=== PATIENT | female | born 1990 | race Caucasian/White ===

== ENCOUNTER 2018-02-27 00:08 | Emergency (ER) | payer MEDICAID, OTHER ==
[2018-02-27 00:35] VITALS: BP 123/82; BMI 23.0
--- NOTE | 2018-02-27 01:00 | DR.GENAD ---
HPI - PCP Primary Care Physician: JULIOCESAR - HPI Comment HPI Comment: HISTORY BELOW. - Complaint/Symptoms Chief Complaint Doctors Comments: PATIENT ATE AT A FAMILY GATHERING FOR [facility]LENE. PATIEN IS HAVING ABDOMINAL PAIN, NAUSEA AND VOMITING. NOT SURE IS HER CHRONIC PANCREATITIS MAY BE CAUSING THIS. NO FENER. HAD BM TODAY. Chief Complaint:: PT STATES" I THINK I'M HAVING PANCREATITIS I HAVE STONES IN MY PANCREAS I'M NAUSEAED AND MY STOMACH IS SWOLLEN" - Nurses notes reviewed Nurses Notes Review: Yes - Source History Provided: Patient - Mode of Arrival Mode of Arrival: Ambulatory - Timing Onset of Chief Complaint: 02/26/18 Came on: Suddenly - Duration Duration: Constant Duration: Hours - Severity Severity: Moderate PMH - PMH Past Medical History: Yes Past Medical History: Anxiety, Diabetes, Headaches, Hypothyroidism Past Medical History Comment: IGG4 RD IGG PANCREATITIS Past Surgical History: Yes Surgical History: Appendectomy, Cholecystectomy, Ortho Surgery Past Surgical History Comment: LT WRIST LT GREAT TOE AND JOINT - Family History History of Family Medical Conditions: Yes Family Medical History: Diabetes Mellitus, Cancer, [place], Coronary Artery Disease, Hypertension - Social History Does any household member use tobacco: No Alcohol Use: None Do you use any recreational Drugs:: No Lives With: Family Lives Where: Home - infectious screening In the last 2 months have you had wt loss of >10#?: NO Have you had fever, night sweats or hemotysis?: No Have you traveled outside the country in the last 6 months?: No Isolation: Standard ROS - Review of Systems Constitutional: Weakness, Fatigue. negative: Chills, Fever Eyes: No Symptoms Reported ENTM: negative: Ear Pain, Nose Discharge, Nose Congestion, Throat Pain Respiratoy: No Symptoms Reported. negative: Productive Cough, Non-Productive Cough, Short of Breath, Wheezing Cardiovascular: No Symptoms Reported Gastrointestinal/Abdominal: Abdominal Pain, Nausea, Vomiting Genitourinary: No Symptoms Reported. negative: Dysuria, Frequency, Hematuria Neurological: Weakness, Dizziness. negative: Headache Musculoskeletal: Muscle Pain Integumentary: Change in Color Hematologic/Lymphatic: No Symptoms Reported Endocrine: negative: Flushing, Increased Thirst, Increased Urine All Other Systems: Reviewed and Negative PE - Vital Signs Vitals: Temperature 98.1 F Pulse Rate 124 Respiratory Rate 18 Blood Pressure [Right Arm] 106/85 Blood Pressure 123/82 O2 Sat by Pulse Oximetry 99 - General Limitations: No Limitations General Appearance: Alert - Head Head Exam: Normal Inspection - Eyes Eye exam: Normal Appearance. negative: Scleral Icterus, Conjunctival Injection - ENT ENT Exam: Normal External Ear Exam External Ear Exam: Normal External Inspection TM/Canal Exam: Bilateral Normal Nose Exam: Normal Nose Exam Mouth Exam: Normal Inspection Throat Exam: Normal Inspection - Neck Neck Exam: Trachea Midline - Chest Chest Inspection: Symmetric Chest Wall Rise - Respiratory Respiratory Exam: Normal Lung Sounds Bilat Respiratory Exam: Bilateral Clear to Auscultation - Cardiovascular Cardiovascular Exam: Regular Rate, Normal Rhythm, Bradycardia - Abdominal Exam Abdominal Exam: Normal Bowel Sounds, Soft, Tenderness Abdominal Tenderness: Diffuse, Mild - Extremities Extremities Exam: Normal Inspection - Back Back Exam: Normal Inspection - Neurologic Neurological Exam: Alert, Oriented X3 - Psychiatric Psychiatric Exam: Normal Affect, Normal Mood - Skin Skin Exam: Normal Color MDM - Additional Information Additional Information Obtained From: Family - Differential Diagnosis Differential Diagnosis: ABDOMINAL PAIN, GASTRITIS, PANCREATITIS. Course - Treatment Treatment: SEE ORDERS. IM MED FOR PAIN AND NAUSEA. - Reevaluation 1st: Improved - Education/Counseling Education/Counseling: Patient, Family, Education Educated On: Treatment, Diagnosis, Needs for Follow Up ROR - Labs Reviewed Laboratory Results Reviewed?: Yes Result Diagrams: 02/27/18 00:57 02/27/18 00:57 Laboratory: WBC 4.9 X10^3/uL (3.6-10.0) 02/27/18 00:57 RBC 3.67 X10^6/uL (3.5-5.4) 02/27/18 00:57 Hgb 9.8 g/dL (12.0-16.0) L 02/27/18 00:57 Hct 29.3 % (36.0-47.0) L 02/27/18 00:57 MCV 79.7 fL (80.0-100.0) L 02/27/18 00:57 MCH 26.6 pg (27.0-34.0) L 02/27/18 00:57 MCHC 33.4 g/dL (33.0-35.0) 02/27/18 00:57 RDW 14.7 % (11.6-16.5) 02/27/18 00:57 Plt Count 302 X10^3/uL (150.0-450.0) 02/27/18 00:57 MPV 8.1 fL (7.4-11.0) 02/27/18 00:57 Neut % (Auto) 59.1 % (42.0-75.0) 02/27/18 00:57 Lymph % (Auto) 28.8 % (21.0-51.0) 02/27/18 00:57 [place] % (Auto) 9.5 % (0.0-13.0) 02/27/18 00:57 Eos % (Auto) 1.6 % (0.9-2.9) 02/27/18 00:57 Baso % (Auto) 1.0 % (0.2-1.0) 02/27/18 00:57 Neut # (Auto) 2.9 x10^3/uL (2.2-4.8) 02/27/18 00:57 Lymph # (Auto) 1.4 X10^3/uL (1.3-2.9) 02/27/18 00:57 [place] # (Auto) 0.5 x10^3/uL (0.3-0.8) 02/27/18 00:57 Eos # (Auto) 0.1 x10^3/uL (0.0-0.2) 02/27/18 00:57 Baso # (Auto) 0.0 X10^3/uL (0.0-0.1) 02/27/18 00:57 Absolute Nucleated RBC 0.0 /100WBC 02/27/18 00:57 Sodium 136 mmol/L (136-145) 02/27/18 00:57 Corrected Sodium 142 mmol/L (136-145) 02/27/18 00:57 Potassium 4.4 mmol/L (3.5-5.1) 02/27/18 00:57 Chloride 101 mmol/L (98-107) 02/27/18 00:57 Carbon Dioxide 20.0 mmol/L (21-32) L 02/27/18 00:57 BUN 32 mg/dL (7-18) H 02/27/18 00:57 Creatinine 1.25 mg/dL (0.55-1.02) H 02/27/18 00:57 Est GFR (MDRD) Af Amer > 60 (>60) 02/27/18 00:57 Est GFR (MDRD) Non-Af 55 (>60) L 02/27/18 00:57 Glucose 342 mg/dL (65-99) H 02/27/18 00:57 Calcium 8.3 mg/dL (8.5-10.1) L 02/27/18 00:57 Corrected Calcium 8.9 mg/dL (8.5-10.1) 02/27/18 00:57 Total Bilirubin 0.10 mg/dL (0.2-1.0) L 02/27/18 00:57 AST 17 Units/L (15-37) 02/27/18 00:57 ALT 20 Units/L (12-78) 02/27/18 00:57 Alkaline Phosphatase 122 Units/L (46-116) H 02/27/18 00:57 Total Protein 8.0 g/dL (6.4-8.2) 02/27/18 00:57 Albumin 3.2 g/dL (3.4-5.0) L 02/27/18 00:57 Globulin 4.8 g/dL (2.5-4.5) H 02/27/18 00:57 Albumin/Globulin Ratio 0.7 Ratio (1.1-2.1) L 02/27/18 00:57 Amylase 36 Units/L (25-115) 02/27/18 00:57 Lipase 200 Units/L (73-393) 02/27/18 00:57 Specimen Type Clean catch urine 02/27/18 01:10 Urine Color Straw (YELLOW) 02/27/18 01:10 Urine Appearance Clear (CLEAR) 02/27/18 01:10 Urine pH 5.0 (5.0 - 8.0) 02/27/18 01:10 Ur Specific [place] 1.010 (1.000-1.030) 02/27/18 01:10 Urine Protein 2+ (NEGATIVE) 02/27/18 01:10 Urine Glucose (UA) 4+ (NEGATIVE) 02/27/18 01:10 Urine Ketones Negative (NEGATIVE) 02/27/18 01:10 Urine Occult Blood 2+ (NEGATIVE) 02/27/18 01:10 Urine Nitrite Negative (NEGATIVE) 02/27/18 01:10 Urine Bilirubin Negative (NEGATIVE) 02/27/18 01:10 Urine Urobilinogen Normal (NORMAL) 02/27/18 01:10 Ur Leukocyte Esterase 1+ (NEGATIVE) 02/27/18 01:10 Urine RBC 3-5 /HPF (NONE SEEN) 02/27/18 01:10 Urine WBC 0-2 /HPF (NONE SEEN) 02/27/18 01:10 Ur Squamous Epith Cells Rare /HPF (NEGATIVE) 02/27/18 01:10 Urine Bacteria Negative /HPF (NEGATIVE) 02/27/18 01:10 Urine Yeast Few /HPF (NEGATIVE) 02/27/18 01:10 Ur Culture Indicated? No/not indicated 02/27/18 01:10 Acetone, Semi-Quant Negative (NEGATIVE) 02/27/18 00:57 - Diagnosis Discharge Problem: Abdominal pain, Nausea & vomiting - Discharge Plan Disposition: 01 HOME, SELF-CARE Condition: Stable - Follow ups/Referrals Follow ups/Referrals: NFD,None [Primary Care Provider] - 02/27/18 - Instructions Instructions: Nausea and Vomiting, Adult, [id number], Abdominal Pain, Adult, [id number] Additional Instructions: RETURN TO ED IF WORSE.
[2018-02-27] MEDS ORDERED: ZOFRAN INJ 4 MG VIAL IM ONE (01:14)
[2018-02-27] MEDS ORDERED: TORADOL 60 MG VIAL IM ONE (01:14)
[2018-02-27 01:16] LABS: EOSINOPHILS # (AUTO) 0.1 x10^3/uL (0.0-0.2); EOSINOPHILS % (AUTO) 1.6 % (0.9-2.9); HEMATOCRIT 29.3 % (36.0-47.0); HEMOGLOBIN 9.8 g/dL (12.0-16.0); LYMPHOCYTES # (AUTO) 1.4 X10^3/uL (1.3-2.9); LYMPHOCYTES % (AUTO) 28.8 % (21.0-51.0); MEAN CORPUSCULAR HEMOGLOBIN 26.6 pg (27.0-34.0); MEAN CORPUSCULAR HGB CONC 33.4 g/dL (33.0-35.0); MEAN CORPUSCULAR VOLUME 79.7 fL (80.0-100.0); MEAN PLATELET VOLUME 8.1 fL (7.4-11.0); MONOCYTES # (AUTO) 0.5 x10^3/uL (0.3-0.8); MONOCYTES % (AUTO) 9.5 % (0.0-13.0); NEUTROPHILS # (AUTO) 2.9 x10^3/uL (2.2-4.8); NEUTROPHILS % (AUTO) 59.1 % (42.0-75.0); PLATELET COUNT 302 X10^3/uL (150.0-450.0); RED BLOOD COUNT 3.67 X10^6/uL (3.5-5.4); RED CELL DISTRIBUTION WIDTH 14.7 % (11.6-16.5); WHITE BLOOD COUNT 4.9 X10^3/uL (3.6-10.0)
[2018-02-27] MEDS ORDERED: TORADOL 60 MG VIAL ONE (01:16)
[2018-02-27] MEDS ORDERED: ZOFRAN INJ 4 MG VIAL ONE (01:16)
[2018-02-27 01:36] LABS: ALANINE AMINOTRANSFERASE 20 Units/L (12-78); ALBUMIN 3.2 g/dL (3.4-5.0); ALKALINE PHOSPHATASE 122 Units/L (46-116); AMYLASE 36 Units/L (25-115); ASPARTATE AMINO TRANSFERASE 17 Units/L (15-37); BLOOD UREA NITROGEN 32 mg/dL (7-18); CALCIUM 8.3 mg/dL (8.5-10.1); CHLORIDE 101 mmol/L (98-107); COR CA(FOR HYPOALB) 8.9 mg/dL (8.5-10.1); COR NA(FOR HYPERGLY) 142 mmol/L (136-145); CREATININE 1.25 mg/dL (0.55-1.02); LIPASE 200 Units/L (73-393); SODIUM 136 mmol/L (136-145); eGFR BLACK RACES > 60 (>60); eGFR NON BLACK RACES 55 (>60)
[2018-02-27 01:42] LABS: BILIRUBIN,URINE NEGATIVE (NEGATIVE); BLOOD/HEMOGLOBIN,URINE 2+ (NEGATIVE); GLUCOSE, URINE 4+ (NEGATIVE); KETONES,URINE NEGATIVE (NEGATIVE); LEUKOCYTE ESTERASE ,URINE 1+ (NEGATIVE); NITRITES,URINE NEGATIVE (NEGATIVE); PROTEIN,URINE 2+ (NEGATIVE); UROBILINOGEN,URINE NORMAL (NORMAL)
[2018-02-27 01:52] LABS: APPEARANCE,URINE CLEAR (CLEAR); COLOR,URINE STRAW (YELLOW)
[2018-02-27 01:53] LABS: BACTERIA,URINE NEGATIVE /HPF (NEGATIVE); SQUAMOUS EPITHELIAL CELL,UR RARE /HPF (NEGATIVE); YEAST,URINE FEW /HPF (NEGATIVE)
== END 2018-02-27 02:14 | disposition home or self-care (01) ==
LOC: ER 00:08
DX: R11.2 Nausea with vomiting, unspecified (principal); R10.84 Generalized abdominal pain
CPT/HCPCS: 36415; 80053; 81001; 82009; 82150; 83690; 85025; 96372; 99282; 99284; J1885; J2405

== ENCOUNTER 2018-03-10 15:29 | Emergency (ER) | payer OTHER, MEDICAID ==
[2018-03-10 15:39] VITALS: BP 99/68; BMI 22.3
[2018-03-10] MEDS ORDERED: MORPHINE SULFATE INJ 2 MG INJ IVP ONE (16:18)
[2018-03-10] MEDS ORDERED: ZOFRAN INJ 4 MG VIAL IVP ONE (16:19)
[2018-03-10] MEDS ORDERED: MORPHINE SULFATE INJ 2 MG INJ ONE ×2 (16:22→16:26)
[2018-03-10] MEDS ORDERED: ZOFRAN INJ 4 MG VIAL ONE ×2 (16:22→16:26)
[2018-03-10] MEDS ORDERED: MORPHINE SULFATE INJ 2 MG INJ IM ONE (16:34)
[2018-03-10] MEDS ORDERED: ZOFRAN INJ 4 MG VIAL IM ONE (16:34)
--- NOTE | 2018-03-10 16:46 | RAD ---
Examination: X-rays of the left ankle. Clinical history: Left foot/ankle pain after walking up steps. Patient had foot surgery 1 month ago. Technique: Three views of the left ankle were obtained. Comparison: None available. Findings: There is a deformity of the base of the proximal phalanx of the 1st toe, which is incompletely visual ized on x-rays of the ankle, but is well visualized on x-rays of the left foot and appears to represe nt a comminuted intra-articular fracture of the base of the proximal phalanx of the 1st toe. Bony spurring is seen at the posterior aspect of the calcaneus, consistent with enthesopathy. No additional bony or soft tissue abnormality is noted. Impression: 1. There is a deformity of the base of the proximal phalanx of the 1st toe, which is incompletely vis ualized on x-rays of the ankle, but is well visualized on x-rays of the left foot and appears to repr esent a comminuted intra-articular fracture of the base of the proximal phalanx of the 1st toe. Reported By:
--- NOTE | 2018-03-10 16:49 | RAD ---
Indication: Foot pain Exam: Left foot series. Technique: AP, lateral, and oblique views. Findings: There is ill-defined cortical fracture along the base of the proximal phalanx of the 1st to e laterally with mild subluxation of the 1st MTP joint. There are questionable erosive changes seen a long the articular surface of the proximal phalanx. There are prominent cortical erosive changes nkechi g the head of the 1st metatarsal bone . There is moderate soft tissue swelling around the area. The t arsal bones are intact . The bones are osteopenic. Impression: Mildly displaced cortical fracture along the base of the proximal phalanx of the 1st toe with mild kohli bluxation of the joint space. Moderate cortical erosive changes along the head of the 1st metatarsal bone and questionable extensio n into the base of the proximal phalanx which could indicate some type of erosive arthropathy in the joint or possible septic joint and developing osteomyelitis. The patient gives a history of recent kohli rgery on the foot . Recommend clinical follow-up. Moderate soft tissue swelling around the 1st MTP joint. Osteopenia. Normal foot Reported By:
[2018-03-10] MEDS ORDERED: TORADOL 30 MG VIAL IVP ONE (17:56)
--- NOTE | 2018-03-10 18:03 | DR.EXTPAIN ---
HPI - Time seen Time seen: 17:57 (seen on arrival to room) - PCP Primary Care Physician: Dr. Lonnie Veras - Complaint/Symptoms Chief Complaint:: Patient c/o left foot pain after walking up steps. Patient stated "It just popped." Patient had foot surgery 1 month ago. Jesus wrap and brace noted to left foot. - Source History Provided: Patient - Mode of arrival Mode of Arrival: Wheelchair - Timing Onset of Chief Complaint: 03/10/18 PMH - PMH Past Medical History: Yes Past Medical History: CHF, Diabetes, GERD Past Medical History Comment: IGG4 pancreatitis, hypo and hyperthyroidism, chronic gastroparesis, deaf in left ear. 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 Past Surgical History: Yes Surgical History: Appendectomy, Cholecystectomy, Ortho Surgery Past Surgical History Comment: surgery on foot, wrist and chest - Family History History of Family Medical Conditions: Yes Family Medical History: Diabetes Mellitus, Cancer, Heart Failure, Hypertension - Social History Does patient currently use any type of tobacco product: No Have you used tobacco products in the last 12 months: No Type of Tobacco Use: None Does any household member use tobacco: No Alcohol Use: None Do you use any recreational Drugs:: No Lives With: Family Lives Where: Home - infectious screening In the last 2 months have you had wt loss of >10#?: NO Have you had fever, night sweats or hemotysis?: No Have you traveled outside the country in the last 6 months?: No Isolation: Standard ROS - Review of Systems Constitutional: No Symptoms Reported Eyes: No Symptoms Reported ENTM: No Symptoms Reported Respiratoy: No Symptoms Reported Cardiovascular: No Symptoms Reported Gastrointestinal/Abdominal: Nausea Neurological: No Symptoms Reported Musculoskeletal: No Symptoms Reported, See HPI, Joint Pain, Joint Swelling, Left , Ankle Integumentary: No Symptoms Reported, Wound (wound left great toe from MRSA procedures(under tx elsewhere)) Hematologic/Lymphatic: No Symptoms Reported Endocrine: No Symptoms Reported Psychiatric: No Symptoms Reported All Other Systems: Reviewed and Negative PE - Vital Signs Vitals: Temperature 98.2 F Pulse Rate 122 Respiratory Rate 19 Blood Pressure [Right Arm] 106/85 Blood Pressure 99/68 O2 Sat by Pulse Oximetry 100 - General Limitations: No Limitations General Appearance: Alert, In No Apparent Distress - Head Head Exam: Normal Inspection - Eyes Eye exam: Normal Appearance - ENT ENT Exam: Normal Exam - Neck Neck Exam: Normal Inspection, Full ROM, Trachea Midline - Chest Chest Inspection: Normal Inspection - Respiratory Respiratory Exam: Normal Lung Sounds Bilat Respiratory Exam: Bilateral Clear to Auscultation - Cardiovascular Cardiovascular Exam: Regular Rate, Normal Rhythm - Abdominal Exam Abdominal Exam: Normal Inspection, Normal Bowel Sounds, Soft. negative: Tenderness - Lower Extremities Ankle Exam: Tenderness, Swelling, Other (left ankle swollen, tender to palp). negative: Abrasion, Laceration, Ecchymosis, Deformity, Crepitus, Dislocation, Erythema, Tenderness over talofibular lig, Anterior Draw Sign Neurovascular/Tendon Exam: Normal Capillary Refill Gait Exam: Not Tested/Not Observed - Neurological Neurological Exam: Alert, Oriented X3 - Skin Skin Exam: Warm, Dry. negative: Erythema ROR - XRAY XRAY Interpreted by: Radiologist XRAY Findings: fx left great toe(chronic) no ankle fx seen, no other acute - Diagnosis Discharge Problem: Left ankle sprain - Discharge Plan Disposition: 01 HOME, SELF-CARE Condition: Stable - Follow ups/Referrals Follow ups/Referrals: NFD,None [Primary Care Provider] - 3 days - Instructions Instructions: Ankle Sprain, [id number], Elastic Bandage and RICE
== END 2018-03-10 18:22 | disposition home or self-care (01) ==
LOC: ER 15:41
DX: S93.402A Sprain of unspecified ligament of left ankle, initial encounter (principal); Y33.XXXA Other specified events, undetermined intent, initial encounter; Y92.9 Unspecified place or not applicable
CPT/HCPCS: 73610; 73630; 96372; 99282; J1885; J2270; J2405

== ENCOUNTER 2018-04-13 11:42 | Emergency (ER) | payer OTHER, MEDICAID ==
[2018-04-13 11:49] VITALS: BMI 22.3
[2018-04-13] MEDS ORDERED: NS 1000 ML 1,000 ML ONE ×2 (11:51→16:02)
[2018-04-13] MEDS ORDERED: NS 1000 ML 1,000 ML IV ONE (12:20)
--- NOTE | 2018-04-13 12:39 | DR.GENAD ---
HPI - PCP Primary Care Physician: last seen a doctor in [place] - Complaint/Symptoms Chief Complaint Doctors Comments: Mom reports that patient was not acting herself; she started shaking all over for approximately one minute then went limp for 10-15 seconds, she has not been making sence with her speech; she keeps saying that she is trying to fix it. She denies patient having fever or urinary incontinence; she has been lethargic for 15 seconds. She went to see her physician in [place] and was discharged from practice stating the she was too complicated for him to see. Chief Complaint:: mother stated she hasnt been acting right for 3 days and her blood pressure was low at home. - Source History Provided: Parent - Mode of Arrival Mode of Arrival: Wheelchair - Timing Onset of Chief Complaint: 04/11/18 PMH - PMH Past Medical History: Yes Past Medical History: CHF, Diabetes, GERD Past Surgical History: Yes Surgical History: Appendectomy, Cholecystectomy, Ortho Surgery - Family History History of Family Medical Conditions: Yes Family Medical History: Diabetes Mellitus, Cancer, Heart Failure, Hypertension - Social History Does patient currently use any type of tobacco product: No Have you used tobacco products in the last 12 months: No Type of Tobacco Use: None Does any household member use tobacco: No Alcohol Use: None Do you use any recreational Drugs:: No Lives With: Family Lives Where: Home - infectious screening In the last 2 months have you had wt loss of >10#?: NO Have you had fever, night sweats or hemotysis?: No Have you traveled outside the country in the last 6 months?: No Isolation: Standard ROS - Review of Systems Eyes: No Symptoms Reported ENTM: No Symptoms Reported Respiratoy: No Symptoms Reported Cardiovascular: No Symptoms Reported Gastrointestinal/Abdominal: No Symptoms Reported Genitourinary: No Symptoms Reported Neurological: No Symptoms Reported Musculoskeletal: No Symptoms Reported Integumentary: No Symptoms Reported Hematologic/Lymphatic: No Symptoms Reported Endocrine: No Symptoms Reported Psychiatric: No Symptoms Reported All Other Systems: Reviewed and Negative PE - Vital Signs Vitals: Temperature 98.3 F Pulse Rate 127 Respiratory Rate 16 Blood Pressure [Right Arm] 106/85 Blood Pressure 72/32 - General General Appearance: Alert, In No Apparent Distress - Head Head Exam: Normal Inspection, Atraumatic - Eyes Eye exam: Normal Appearance, PERRL, EOMI - ENT ENT Exam: Normal Exam External Ear Exam: Normal External Inspection TM/Canal Exam: Bilateral Normal Nose Exam: Normal Nose Exam Mouth Exam: Normal Inspection Throat Exam: Normal Inspection - Neck Neck Exam: Normal Inspection - Chest Chest Inspection: Normal Inspection - Respiratory Respiratory Exam: Normal Lung Sounds Bilat Respiratory Exam: Bilateral Clear to Auscultation - Cardiovascular Cardiovascular Exam: Regular Rate, Normal Rhythm - Abdominal Exam Abdominal Exam: Normal Inspection, Normal Bowel Sounds Abdominal Tenderness: negative: RUQ, RLQ, LUQ, LLQ, Epigastrium, Suprapubic, Diffuse, Mild, Moderate, Severe, Other - Extremities Extremities Exam: Normal Inspection, Full ROM - Back Back Exam: Normal Inspection, Full ROM - Neurologic Neurological Exam: Alert, Oriented X3, CN II-XII Intact - Psychiatric Psychiatric Exam: Normal Affect, Normal Mood - Skin Skin Exam: Warm, Dry, Intact Course - Consultation Called: 15:35 (Dr Oakley accepted for evaluation of new on set seizure ER to ER) ROR - Labs Reviewed Result Diagrams: 04/13/18 12:00 04/13/18 12:00 Laboratory: WBC 4.9 X10^3/uL (3.6-10.0) 04/13/18 12:00 RBC 4.16 X10^6/uL (3.5-5.4) 04/13/18 12:00 Hgb 11.4 g/dL (12.0-16.0) L 04/13/18 12:00 Hct 32.5 % (36.0-47.0) L 04/13/18 12:00 MCV 78.1 fL (80.0-100.0) L 04/13/18 12:00 MCH 27.3 pg (27.0-34.0) 04/13/18 12:00 MCHC 35.0 g/dL (33.0-35.0) 04/13/18 12:00 RDW 15.4 % (11.6-16.5) 04/13/18 12:00 Plt Count 284 X10^3/uL (150.0-450.0) 04/13/18 12:00 MPV 8.5 fL (7.4-11.0) 04/13/18 12:00 Neut % (Auto) 57.8 % (42.0-75.0) 04/13/18 12:00 Lymph % (Auto) 27.5 % (21.0-51.0) 04/13/18 12:00 [place] % (Auto) 11.9 % (0.0-13.0) 04/13/18 12:00 Eos % (Auto) 1.5 % (0.9-2.9) 04/13/18 12:00 Baso % (Auto) 1.3 % (0.2-1.0) H 04/13/18 12:00 Neut # (Auto) 2.8 x10^3/uL (2.2-4.8) 04/13/18 12:00 Lymph # (Auto) 1.3 X10^3/uL (1.3-2.9) 04/13/18 12:00 [place] # (Auto) 0.6 x10^3/uL (0.3-0.8) 04/13/18 12:00 Eos # (Auto) 0.1 x10^3/uL (0.0-0.2) 04/13/18 12:00 Baso # (Auto) 0.1 X10^3/uL (0.0-0.1) 04/13/18 12:00 Absolute Nucleated RBC 0.1 /100WBC 04/13/18 12:00 Sodium 133 mmol/L (136-145) L 04/13/18 12:00 Corrected Sodium TNP 04/13/18 12:00 Potassium 4.5 mmol/L (3.5-5.1) 04/13/18 12:00 Chloride 97 mmol/L (98-107) L 04/13/18 12:00 Carbon Dioxide 23.9 mmol/L (21-32) 04/13/18 12:00 BUN 22 mg/dL (7-18) H 04/13/18 12:00 Creatinine 1.28 mg/dL (0.55-1.02) H 04/13/18 12:00 Est GFR (MDRD) Af Amer > 60 (>60) 04/13/18 12:00 Est GFR (MDRD) Non-Af 54 (>60) L 04/13/18 12:00 Glucose 97 mg/dL (65-99) 04/13/18 12:00 Calcium 8.9 mg/dL (8.5-10.1) 04/13/18 12:00 Corrected Calcium 9.6 mg/dL (8.5-10.1) 04/13/18 12:00 Total Bilirubin 0.20 mg/dL (0.2-1.0) 04/13/18 12:00 AST 29 Units/L (15-37) 04/13/18 12:00 ALT 27 Units/L (12-78) 04/13/18 12:00 Alkaline Phosphatase 166 Units/L (46-116) H 04/13/18 12:00 C-Reactive Protein 5.70 mg/L (0-3.0) H 04/13/18 12:00 Total Protein 8.1 g/dL (6.4-8.2) 04/13/18 12:00 Albumin 3.1 g/dL (3.4-5.0) L 04/13/18 12:00 Globulin 5.0 g/dL (2.5-4.5) H 04/13/18 12:00 Albumin/Globulin Ratio 0.6 Ratio (1.1-2.1) L 04/13/18 12:00 Specimen Type Catherized urine 04/13/18 14:01 Urine Color Yellow (YELLOW) 04/13/18 14:01 Urine Appearance Slightly hazy (CLEAR) 04/13/18 14:01 Urine pH 7.0 (5.0 - 8.0) 04/13/18 14:01 Ur Specific [place] 1.005 (1.000-1.030) 04/13/18 14:01 Urine Protein 2+ (NEGATIVE) 04/13/18 14:01 Urine Glucose (UA) 2+ (NEGATIVE) 04/13/18 14:01 Urine Ketones Negative (NEGATIVE) 04/13/18 14:01 Urine Occult Blood 2+ (NEGATIVE) 04/13/18 14:01 Urine Nitrite Negative (NEGATIVE) 04/13/18 14:01 Urine Bilirubin Negative (NEGATIVE) 04/13/18 14:01 Urine Urobilinogen Normal (NORMAL) 04/13/18 14:01 Ur Leukocyte Esterase Negative (NEGATIVE) 04/13/18 14:01 Urine RBC 0-2 /HPF (NONE SEEN) 04/13/18 14:01 Urine WBC None seen /HPF (NONE SEEN) 04/13/18 14:01 Ur Squamous Epith Cells Rare /HPF (NEGATIVE) 04/13/18 14:01 Amorphous Sediment 1+ /HPF (NEGATIVE) 04/13/18 14:01 Urine Bacteria Negative /HPF (NEGATIVE) 04/13/18 14:01 Ur Culture Indicated? No/not indicated 04/13/18 14:01 - XRAY XRAY Interpreted by: Radiologist (CT Brain: Land-white differentiation is maintained. No visible acute infarct, intracranial hemorrhage, focal or generalized edema, extra-axial collection, hydrocephalus or mass is identified. There is mild mucosal thickening of the bilateral ethmoid and maxillary sinuses with small fluid level noted within right maxillary sinus. The remaining visualized paranasal sinuses and mastoid air cells are clear. The extracranial structured are gossly unremarkable. Impression: Mild paranasal sinus mucosal disease. Chest: No acute cardiopulmonary disease.) - Diagnosis Discharge Problem: New onset seizure, IGG-4 Syndrome, Gastroparesis, Diabetes - Discharge Plan Condition: Stable - Follow ups/Referrals Follow ups/Referrals: NFD,None [Primary Care Provider] - 3 days - Instructions
[2018-04-13 13:03] LABS: BASOPHILS # (AUTO) 0.1 X10^3/uL (0.0-0.1); BASOPHILS % (AUTO) 1.3 % (0.2-1.0); EOSINOPHILS # (AUTO) 0.1 x10^3/uL (0.0-0.2); EOSINOPHILS % (AUTO) 1.5 % (0.9-2.9); HEMATOCRIT 32.5 % (36.0-47.0); HEMOGLOBIN 11.4 g/dL (12.0-16.0); LYMPHOCYTES # (AUTO) 1.3 X10^3/uL (1.3-2.9); LYMPHOCYTES % (AUTO) 27.5 % (21.0-51.0); MEAN CORPUSCULAR HEMOGLOBIN 27.3 pg (27.0-34.0); MEAN CORPUSCULAR VOLUME 78.1 fL (80.0-100.0); MEAN PLATELET VOLUME 8.5 fL (7.4-11.0); MONOCYTES # (AUTO) 0.6 x10^3/uL (0.3-0.8); MONOCYTES % (AUTO) 11.9 % (0.0-13.0); NEUTROPHILS # (AUTO) 2.8 x10^3/uL (2.2-4.8); NEUTROPHILS % (AUTO) 57.8 % (42.0-75.0); PLATELET COUNT 284 X10^3/uL (150.0-450.0); RED BLOOD COUNT 4.16 X10^6/uL (3.5-5.4); RED CELL DISTRIBUTION WIDTH 15.4 % (11.6-16.5); WHITE BLOOD COUNT 4.9 X10^3/uL (3.6-10.0)
--- NOTE | 2018-04-13 13:06 | CT ---
CT head without contrast Indication: New onset seizure, low blood pressure Technique: Helical CT images of the brain were obtained without IV contrast. Reformatted images in th e coronal and sagittal planes were also generated for review. Comparison: None Findings: Land-white differentiation is maintained. No visible acute infarct, intracranial hemorrhage , focal or generalized edema, extra-axial collection, hydrocephalus or mass is identified. There is m ild mucosal thickening of the bilateral ethmoid and maxillary sinuses with small fluid level noted wi thin right maxillary sinus. The remaining visualized paranasal sinuses and mastoid air cells are aleida r. The extracranial structures are grossly unremarkable. Impression: No acute intracranial abnormality. Mild paranasal sinus mucosal disease, as above. Correlate clinically for acute sinusitis. Reported By:
[2018-04-13 13:14] LABS: ALANINE AMINOTRANSFERASE 27 Units/L (12-78); ALBUMIN 3.1 g/dL (3.4-5.0); ALKALINE PHOSPHATASE 166 Units/L (46-116); ASPARTATE AMINO TRANSFERASE 29 Units/L (15-37); BLOOD UREA NITROGEN 22 mg/dL (7-18); CALCIUM 8.9 mg/dL (8.5-10.1); CARBON DIOXIDE 23.9 mmol/L (21-32); CHLORIDE 97 mmol/L (98-107); COR CA(FOR HYPOALB) 9.6 mg/dL (8.5-10.1); CREATININE 1.28 mg/dL (0.55-1.02); SODIUM 133 mmol/L (136-145); TOTAL PROTEIN 8.1 g/dL (6.4-8.2); eGFR BLACK RACES > 60 (>60); eGFR NON BLACK RACES 54 (>60)
--- NOTE | 2018-04-13 13:32 | RAD ---
STUDY: CHEST, ONE VIEW History: New onset seizure. Low blood pressure. Comparison: August 12, 2015 Findings: The trachea is midline. The lungs are clear of consolidation, significant infiltrate, effusion, or pn eumothorax. The cardiac silhouette, mediastinum and osseous structures are unremarkable. IMPRESSION: 1. No evidence of acute cardiopulmonary abnormality. Reported By:
[2018-04-13 14:09] LABS: BILIRUBIN,URINE NEGATIVE (NEGATIVE); BLOOD/HEMOGLOBIN,URINE 2+ (NEGATIVE); GLUCOSE, URINE 2+ (NEGATIVE); KETONES,URINE NEGATIVE (NEGATIVE); LEUKOCYTE ESTERASE ,URINE NEGATIVE (NEGATIVE); NITRITES,URINE NEGATIVE (NEGATIVE); PROTEIN,URINE 2+ (NEGATIVE); UROBILINOGEN,URINE NORMAL (NORMAL)
[2018-04-13 14:13] LABS: APPEARANCE,URINE SLIGHTLY HAZY (CLEAR); COLOR,URINE YELLOW (YELLOW)
[2018-04-13 14:21] LABS: AMORPHOUS SEDIMENT,UR 1+ /HPF (NEGATIVE); BACTERIA,URINE NEGATIVE /HPF (NEGATIVE); RBC,URINE 0-2 /HPF (NONE SEEN); SQUAMOUS EPITHELIAL CELL,UR RARE /HPF (NEGATIVE)
[2018-04-13 17:00] VITALS: BP 96/60
== END 2018-04-13 16:24 | disposition short-term general hospital (02) ==
LOC: ER 12:15
DX: E11.43 Type 2 diabetes mellitus with diabetic autonomic (poly)neuropathy (principal); K31.84 Gastroparesis; R56.9 Unspecified convulsions; D80.3 Selective deficiency of immunoglobulin G [IgG] subclasses; J32.9 Chronic sinusitis, unspecified; R79.82 Elevated C-reactive protein (CRP); R31.9 Hematuria, unspecified
CPT/HCPCS: 36415; 51702; 70450; 71045; 80053; 81001; 85025; 86140; 93005; 93010; 96365; 99284; 99285; A4222

== ENCOUNTER 2018-05-30 13:54 | Observation (INO) ==
--- NOTE | 2018-05-30 14:33 | DR.GENAD ---
HPI - PCP Primary Care Physician: Dr. Jaskaran Steward in [place] - HPI Comment HPI Comment: PATIENT IS HERE VIA EMS FOR SEIZURE, HYPOTENSION AND GENERALIZE WEAKNESS. HE STARTED FEELING WEAK THIS AM. SEIZURE AND HYPOTENSION BEFORE COMING. NO FEVER. - Complaint/Symptoms Chief Complaint Doctors Comments: WEAKNES, HYPOTENSION, AND HYPOTENSION. Chief Complaint:: Pt reported weakness this morning. This afternoon pt was riding in vehicle and had sudden onset of seizure like activity. Pt was also noted to be hypotensive with BP 79/43 upon EMS arrival. - Nurses notes reviewed Nurses Notes Review: Yes - Source History Provided: Patient, EMS - Mode of Arrival Mode of Arrival: EMS - Timing Onset of Chief Complaint: 05/30/18 Came on: Suddenly - Duration Duration: Constant Duration: Days - Severity Severity: Moderate PMH - PMH Past Medical History: Yes Past Medical History: CHF, Diabetes, Migraines, GERD Past Medical History Comment: metabolic disorder, autoimmune disorder, IGG4 Past Surgical History: Yes Surgical History: Appendectomy, Cholecystectomy, Ortho Surgery - Family History History of Family Medical Conditions: No Family Medical History: Diabetes Mellitus, Cancer, Heart Failure, Hypertension - Social History Does patient currently use any type of tobacco product: No Have you used tobacco products in the last 12 months: No Type of Tobacco Use: None Does any household member use tobacco: No Alcohol Use: None Do you use any recreational Drugs:: No Lives With: Family Lives Where: Home - infectious screening In the last 2 months have you had wt loss of >10#?: NO Have you had fever, night sweats or hemotysis?: No Have you traveled outside the country in the last 6 months?: No Isolation: Standard ROS - Review of Systems Constitutional: Weakness, Fatigue. negative: See HPI, Fever Eyes: No Symptoms Reported ENTM: No Symptoms Reported Respiratoy: Short of Breath Cardiovascular: Syncope, Skin Mottling (N), Other (HYPOTENSIO) Gastrointestinal/Abdominal: Diarrhea Neurological: Headache, Seizure, Weakness, Dizziness Musculoskeletal: Muscle Pain PE - General Limitations: Altered Mental Status General Appearance: Alert, In No Apparent Distress - Head Head Exam: Atraumatic, Normocephalic - Eyes Eye exam: PERRL, EOMI - ENT ENT Exam: Normal Exam External Ear Exam: Normal External Inspection TM/Canal Exam: Bilateral Normal Nose Exam: Normal Nose Exam Mouth Exam: Normal Inspection Throat Exam: Normal Inspection - Neck Neck Exam: Normal Inspection - Chest Chest Inspection: Normal Inspection - Respiratory Respiratory Exam: Normal Lung Sounds Bilat Respiratory Exam: Bilateral Clear to Auscultation - Cardiovascular Cardiovascular Exam: Tachycardia - Abdominal Exam Abdominal Exam: Normal Bowel Sounds, Soft, Tenderness - Extremities Extremities Exam: Normal Inspection - Back Back Exam: Normal Inspection - Neurologic Neurological Exam: Alert, Oriented X3. negative: Motor Sensory Deficit - Skin Skin Exam: Pallor (HYPOTENSIVE.), Other - Vital Signs Vitals: Temperature 98.1 F Pulse Rate 114 Respiratory Rate 24 Blood Pressure [Right Arm] 131/87 Blood Pressure 75/39 O2 Sat by Pulse Oximetry 97 MDM - Differential Diagnosis Differential Diagnosis: SEIZURE, GENERALIZE WEAKNESS, HYPOTENSION, ELECTROLYTE IMBALANCE. Course - Treatment Treatment: SEE ORDERS. - Education/Counseling Education/Counseling: Patient, Education Educated On: Diagnosis, Needs for Follow Up ROR - Labs Reviewed Laboratory Results Reviewed?: Yes Result Diagrams: 05/31/18 05:08 05/31/18 05:08 - Other Results Comments: PATIENT ADMITTED TO DR. DURHAM SERVICE. - XRAY XRAY Interpreted by: Radiologist XRAY Findings: REPORT DISCUSS WITH PATIENT. - EKG Rate: 132 Rhythm: ST (EKG NOTED.) - Labs Reviewed Laboratory: WBC 4.2 X10^3/uL (3.6-10.0) 05/30/18 14:45 RBC 3.73 X10^6/uL (3.5-5.4) 05/30/18 14:45 Hgb 10.4 g/dL (12.0-16.0) L 05/30/18 14:45 Hct 31.3 % (36.0-47.0) L 05/30/18 14:45 MCV 83.9 fL (80.0-100.0) 05/30/18 14:45 MCH 27.9 pg (27.0-34.0) 05/30/18 14:45 MCHC 33.3 g/dL (33.0-35.0) 05/30/18 14:45 RDW 13.7 % (11.6-16.5) 05/30/18 14:45 Plt Count 420 X10^3/uL (150.0-450.0) 05/30/18 14:45 MPV 8.1 fL (7.4-11.0) 05/30/18 14:45 Neut % (Auto) 54.6 % (42.0-75.0) 05/30/18 14:45 Lymph % (Auto) 31.6 % (21.0-51.0) 05/30/18 14:45 [place] % (Auto) 11.7 % (0.0-13.0) 05/30/18 14:45 Eos % (Auto) 1.5 % (0.9-2.9) 05/30/18 14:45 Baso % (Auto) 0.6 % (0.2-1.0) 05/30/18 14:45 Neut # (Auto) 2.3 x10^3/uL (2.2-4.8) 05/30/18 14:45 Lymph # (Auto) 1.3 X10^3/uL (1.3-2.9) 05/30/18 14:45 [place] # (Auto) 0.5 x10^3/uL (0.3-0.8) 05/30/18 14:45 Eos # (Auto) 0.1 x10^3/uL (0.0-0.2) 05/30/18 14:45 Baso # (Auto) 0.0 X10^3/uL (0.0-0.1) 05/30/18 14:45 Absolute Nucleated RBC 0.0 /100WBC 05/30/18 14:45 Sodium 147 mmol/L (136-145) H 05/30/18 14:45 Corrected Sodium TNP 05/30/18 14:45 Potassium 3.4 mmol/L (3.5-5.1) L 05/30/18 14:45 Chloride 112 mmol/L (98-107) H 05/30/18 14:45 Carbon Dioxide 20.1 mmol/L (21-32) L 05/30/18 14:45 BUN 26 mg/dL (7-18) H 05/30/18 14:45 Creatinine 1.28 mg/dL (0.55-1.02) H 05/30/18 14:45 Est GFR (MDRD) Af Amer > 60 (>60) 05/30/18 14:45 Est GFR (MDRD) Non-Af 54 (>60) L 05/30/18 14:45 Glucose 106 mg/dL (65-99) H 05/30/18 14:45 Lactic Acid 5.0 mmol/L (0.4-2.0) H 05/30/18 14:45 Calcium 8.8 mg/dL (8.5-10.1) 05/30/18 17:35 Corrected Calcium 1.9 mg/dL (8.5-10.1) L 05/30/18 14:45 Phosphorus 4.2 mg/dL (2.6-4.7) 05/30/18 14:45 Magnesium 2.3 mg/dL (1.7-2.9) 05/30/18 14:45 Total Bilirubin 0.20 mg/dL (0.2-1.0) 05/30/18 14:45 AST 33 Units/L (15-37) 05/30/18 14:45 ALT 34 Units/L (12-78) 05/30/18 14:45 Alkaline Phosphatase 171 Units/L (46-116) H 05/30/18 14:45 Creatine Kinase 44 Units/L (26-192) 05/30/18 14:45 CK-MB (CK-2) < 1.0 ng/mL (0-4.0) 05/30/18 14:45 CK/CKMB % Calc 2.3 % (<4) 05/30/18 14:45 Troponin I < 0.02 ng/mL (0-1.5) 05/30/18 14:45 Total Protein 7.6 g/dL (6.4-8.2) 05/30/18 14:45 Albumin 3.1 g/dL (3.4-5.0) L 05/30/18 14:45 Globulin 4.5 g/dL (2.5-4.5) 05/30/18 14:45 Albumin/Globulin Ratio 0.7 Ratio (1.1-2.1) L 05/30/18 14:45 Specimen Type Random urine 05/30/18 16:26 Urine Color Pale yellow (YELLOW) 05/30/18 16:26 Urine Appearance Clear (CLEAR) 05/30/18 16:26 Urine pH 6.5 (5.0 - 8.0) 05/30/18 16:26 Ur Specific [place] 1.010 (1.000-1.030) 05/30/18 16:26 Urine Protein Negative (NEGATIVE) 05/30/18 16:26 Urine Glucose (UA) 1+ (NEGATIVE) 05/30/18 16:26 Urine Ketones Negative (NEGATIVE) 05/30/18 16:26 Urine Occult Blood 2+ (NEGATIVE) 05/30/18 16:26 Urine Nitrite Negative (NEGATIVE) 05/30/18 16:26 Urine Bilirubin Negative (NEGATIVE) 05/30/18 16:26 Urine Urobilinogen Normal (NORMAL) 05/30/18 16:26 Ur Leukocyte Esterase Negative (NEGATIVE) 05/30/18 16:26 Urine RBC 3-5 /HPF (NONE SEEN) 05/30/18 16:26 Urine WBC 0-2 /HPF (NONE SEEN) 05/30/18 16:26 Ur Squamous Epith Cells Few /HPF (NEGATIVE) 05/30/18 16:26 Urine Bacteria 1+ /HPF (NEGATIVE) 05/30/18 16:26 Urine Yeast Rare /HPF (NEGATIVE) 05/30/18 16:26 Ur Culture Indicated? No/not indicated 05/30/18 16:26 Urine Opiates Screen Negative (NEG=<300) 05/30/18 16:26 Urine Methadone Screen Negative (NEG=<300) 05/30/18 16:26 Ur Barbiturates Screen Negative (NEG=<200) 05/30/18 16:26 Ur Phencyclidine Scrn Negative (NEG=<25) 05/30/18 16:26 Ur Amphetamines Screen Negative (NEG=<1000) 05/30/18 16:26 U Benzodiazepines Scrn Negative (NEG=<200) 05/30/18 16:26 Urine Cocaine Screen Negative (NEG=<300) 05/30/18 16:26 U Marijuana (THC) Screen Negative (NEG=<50) 05/30/18 16:26 Acetone, Semi-Quant Negative (NEGATIVE) 05/30/18 14:45 - Diagnosis Discharge Problem: Diarrhea, Syncopal episodes Hypotension Qualifiers: Hypotension type: other hypotension type Qualified Code(s): I95.89 - Other hypotension - Discharge Plan Disposition: 09 ADMITTED INPATIENT Condition: Stable
[2018-05-30] MEDS: NS 1000 ML 1,000 ML IV ONE ×2 (14:38→15:00)
[2018-05-30 15:03] LABS: BASOPHILS % (AUTO) 0.6 % (0.2-1.0); EOSINOPHILS # (AUTO) 0.1 x10^3/uL (0.0-0.2); EOSINOPHILS % (AUTO) 1.5 % (0.9-2.9); HEMATOCRIT 31.3 % (36.0-47.0); HEMOGLOBIN 10.4 g/dL (12.0-16.0); LYMPHOCYTES # (AUTO) 1.3 X10^3/uL (1.3-2.9); LYMPHOCYTES % (AUTO) 31.6 % (21.0-51.0); MEAN CORPUSCULAR HEMOGLOBIN 27.9 pg (27.0-34.0); MEAN CORPUSCULAR HGB CONC 33.3 g/dL (33.0-35.0); MEAN CORPUSCULAR VOLUME 83.9 fL (80.0-100.0); MEAN PLATELET VOLUME 8.1 fL (7.4-11.0); MONOCYTES # (AUTO) 0.5 x10^3/uL (0.3-0.8); MONOCYTES % (AUTO) 11.7 % (0.0-13.0); NEUTROPHILS # (AUTO) 2.3 x10^3/uL (2.2-4.8); NEUTROPHILS % (AUTO) 54.6 % (42.0-75.0); PLATELET COUNT 420 X10^3/uL (150.0-450.0); RED BLOOD COUNT 3.73 X10^6/uL (3.5-5.4); RED CELL DISTRIBUTION WIDTH 13.7 % (11.6-16.5); WHITE BLOOD COUNT 4.2 X10^3/uL (3.6-10.0)
[2018-05-30] MEDS ORDERED: NS 1000 ML 1,000 ML ONE ×2 (15:12→17:07)
[2018-05-30 15:20] LABS: ALANINE AMINOTRANSFERASE 34 Units/L (12-78); ALBUMIN 3.1 g/dL (3.4-5.0); ALKALINE PHOSPHATASE 171 Units/L (46-116); ASPARTATE AMINO TRANSFERASE 33 Units/L (15-37); BLOOD UREA NITROGEN 26 mg/dL (7-18); CARBON DIOXIDE 20.1 mmol/L (21-32); CHLORIDE 112 mmol/L (98-107); CREATININE 1.28 mg/dL (0.55-1.02); SODIUM 147 mmol/L (136-145); TOTAL PROTEIN 7.6 g/dL (6.4-8.2); eGFR NON BLACK RACES 54 (>60)
[2018-05-30 15:30] LABS: CKMB % 2.3 % (<4); CREATINE KINASE 44 Units/L (26-192); CREATINE KINASE MB < 1.0 ng/mL (0-4.0); TROPONIN I < 0.02 ng/mL (0-1.5)
[2018-05-30 15:35] LABS: CALCIUM 1.2 mg/dL (8.5-10.1); COR CA(FOR HYPOALB) 1.9 mg/dL (8.5-10.1)
[2018-05-30] MEDS ORDERED: NS 1000 ML 1,000 ML IV ONE (15:55)
[2018-05-30] MEDS ORDERED: CALCIUM GLUCONATE 10% IV ONE ×2 (16:21→17:04)
[2018-05-30 16:39] LABS: BILIRUBIN,URINE NEGATIVE (NEGATIVE); BLOOD/HEMOGLOBIN,URINE 2+ (NEGATIVE); GLUCOSE, URINE 1+ (NEGATIVE); KETONES,URINE NEGATIVE (NEGATIVE); LEUKOCYTE ESTERASE ,URINE NEGATIVE (NEGATIVE); NITRITES,URINE NEGATIVE (NEGATIVE); PH,URINE 6.5 (5.0 - 8.0); PROTEIN,URINE NEGATIVE (NEGATIVE); UROBILINOGEN,URINE NORMAL (NORMAL)
[2018-05-30 16:56] LABS: APPEARANCE,URINE CLEAR (CLEAR); BACTERIA,URINE 1+ /HPF (NEGATIVE); COLOR,URINE PALE YELLOW (YELLOW); SQUAMOUS EPITHELIAL CELL,UR FEW /HPF (NEGATIVE); YEAST,URINE RARE /HPF (NEGATIVE)
[2018-05-30] MEDS ORDERED: NS 100 ML IV 100 ML IV ONE (17:04)
[2018-05-30] MEDS ORDERED: NS IV ONE ×2 (17:22)
[2018-05-30] MEDS ORDERED: CALCIUM GLUCONATE IV ONE ×2 (17:22)
[2018-05-30] MEDS: NS + KCL 20 MEQ/L 1,000 ML IV SCH (17:25)
--- NOTE | 2018-05-30 18:17 | RAD ---
Chest AP portable Indication: Weakness. Possible seizure Comparison: 05/26/2018 Findings: There is no pneumothorax or effusion. There is no consolidation. Heart size is normal. Impression: No acute chest process or change from the prior. Reported By:
[2018-05-30 20:39] VITALS: BMI 22.3
[2018-05-30] MEDS: ULTRAM PO PRN (21:04)
[2018-05-31 00:14] LABS: CKMB % 2.5 % (<4); CREATINE KINASE 40 Units/L (26-192); CREATINE KINASE MB < 1.0 ng/mL (0-4.0); TROPONIN I < 0.02 ng/mL (0-1.5)
[2018-05-31] MEDS: NS + KCL 20 MEQ/L 1,000 ML IV SCH ×2 (02:10→17:28)
[2018-05-31] MEDS: ULTRAM PO PRN (02:10)
[2018-05-31 06:02] LABS: BASOPHILS # (AUTO) 0.1 X10^3/uL (0.0-0.1); BASOPHILS % (AUTO) 1.5 % (0.2-1.0); EOSINOPHILS # (AUTO) 0.2 x10^3/uL (0.0-0.2); EOSINOPHILS % (AUTO) 3.4 % (0.9-2.9); HEMATOCRIT 30.8 % (36.0-47.0); HEMOGLOBIN 10.2 g/dL (12.0-16.0); LYMPHOCYTES # (AUTO) 1.6 X10^3/uL (1.3-2.9); LYMPHOCYTES % (AUTO) 31.6 % (21.0-51.0); MEAN CORPUSCULAR HEMOGLOBIN 27.7 pg (27.0-34.0); MEAN CORPUSCULAR HGB CONC 33.1 g/dL (33.0-35.0); MEAN CORPUSCULAR VOLUME 83.5 fL (80.0-100.0); MEAN PLATELET VOLUME 9.4 fL (7.4-11.0); MONOCYTES # (AUTO) 0.5 x10^3/uL (0.3-0.8); MONOCYTES % (AUTO) 9.7 % (0.0-13.0); NEUTROPHILS # (AUTO) 2.8 x10^3/uL (2.2-4.8); NEUTROPHILS % (AUTO) 53.8 % (42.0-75.0); PLATELET COUNT 305 X10^3/uL (150.0-450.0); RED BLOOD COUNT 3.69 X10^6/uL (3.5-5.4); RED CELL DISTRIBUTION WIDTH 13.7 % (11.6-16.5); WHITE BLOOD COUNT 5.1 X10^3/uL (3.6-10.0)
[2018-05-31 06:18] LABS: ALANINE AMINOTRANSFERASE 32 Units/L (12-78); ALBUMIN 3.1 g/dL (3.4-5.0); ALKALINE PHOSPHATASE 174 Units/L (46-116); ASPARTATE AMINO TRANSFERASE 38 Units/L (15-37); BLOOD UREA NITROGEN 12 mg/dL (7-18); CARBON DIOXIDE 17.6 mmol/L (21-32); CHLORIDE 99 mmol/L (98-107); COR CA(FOR HYPOALB) 9.7 mg/dL (8.5-10.1); COR NA(FOR HYPERGLY) 140 mmol/L (136-145); CREATININE 0.87 mg/dL (0.55-1.02); SODIUM 133 mmol/L (136-145); TOTAL PROTEIN 7.6 g/dL (6.4-8.2); eGFR NON BLACK RACES > 60 (>60)
[2018-05-31 06:23] LABS: PLATELET MORPHOLOGY COMMENT NORMAL (NORMAL)
[2018-05-31] MEDS ORDERED: HumuLIN R SUBCUT ONE (07:08)
[2018-05-31] MEDS ORDERED: HumuLIN R ONE (07:13)
[2018-05-31 08:04] LABS: CKMB % 1.6 % (<4); CREATINE KINASE 62 Units/L (26-192); CREATINE KINASE MB < 1.0 ng/mL (0-4.0); TROPONIN I < 0.02 ng/mL (0-1.5)
--- NOTE | 2018-05-31 11:19 | DR.H&P ---
H&P - History & Physical for Day of: H&P Date: 05/30/18 - Chief Complaint Chief Complaint: SEIZURE - History of Present Illness History of Present Illness: PT IS 27 EF ER ADMISSION AFTER PRESENTING WITH CO reported weakness this morning. This afternoon pt was riding in vehicle and had sudden onset of seizure like activity. Pt was also noted to be hypotensive with BP 79/43 upon EMS arrival. Pt has PMH of DM, Osteomyelitis currently on doxycycline since 11/2017 to left foot, chronic pancreatitis, auto immune pancreatitis, and seizure like episode similiar to today due to hypotension, pt currently on hydrocortisone for bp control. pt states "its because I had too much powerade and my magnesium gets off track". Pt denies any aura prior to seizure, denies cp or sob. Pt admitted to ICU for treatment and evaluation of syncope episode, serial ekg's electrolyte replacement. Pt is under the care of Dr Means and Uli in [place]. - Past Medical History Past Medical History: Anxiety, CHF, Diabetes, Migraines, GERD, Hypothyroidism, Liver Disease Additional Medical History: Hypotension, Auto Immune Pancreatitis, Bipolar Disorder, Deaf (L) Ear, Polycystic ovarian disease, Gall bladder disease, Pancreatitis, Crohn's disease, Constipation, Hormone disorder - Past Surgical History Surgical History: Appendectomy, Cholecystectomy, Ortho Surgery Additional Surgical History: Port-a-cath placement - Family History Family Medical History: Diabetes Mellitus, Cancer, Heart Failure, Hypertension - Social History Does patient currently use any type of tobacco product: No Have you used tobacco products in the last 12 months: No Type of Tobacco Use: None Does any household member use tobacco: No Alcohol Use: None Drug Use: None - Medications Home Medications: acetaminophen [From Tylenol] Allergy (Verified 04/13/18 11:45) metoclopramide [From Reglan] Allergy (Verified 04/13/18 11:45) TAPE ADHESIVE Allergy (Uncoded 04/13/18 11:45) CONTINUE taking the following medications amitriptyline 1 tab PO HS 05/31/18 [History] azathioprine [Imuran] 1.5 tab PO DAILY 05/31/18 [History] cyanocobalamin (vitamin B-12) 1,000 mcg IM QMONTH 05/31/18 [History] fludrocortisone 0.1 mg PO DAILY 05/31/18 [History] gabapentin 1 tab PO TID 05/31/18 [History] ziprasidone HCl 1 cap PO DAILY 05/31/18 [History] - Review of Systems Constitutional: Weakness Eyes: No Symptoms Reported ENT: No Symptoms Reported Respiratory: No Symptoms Reported Cardiovascular: No Symptoms Reported Gastrointestinal: No Symptoms Reported Genitourinary: No Symptoms Reported Musculoskeletal: Leg Pain Skin: No Symptoms Reported Neurological: denies: Change in Speech, Confusion, Seizures - Physical Exam Vital Signs: Temperature 99.1 F Pulse Rate [Left Radial] 120 Pulse Rate 114 Respiratory Rate 17 Blood Pressure [Right Arm] 113/80 Blood Pressure 75/39 O2 Sat by Pulse Oximetry 100 Oriented: Normal Eyes: Normal Ear: Normal Nose: Normal Throat: Normal Respiratory: Clear Throughout Cardiovascular: Tachycardia. negative: Edema : Normal Auscultation: Bowel Sounds: Normal Palpation: Normal Tenderness: Normal Skin: Normal, Wound (left foot) Musculoskeletal: Left, Knee, Foot Psychiatric: Anxiety Affect: Anxious Speech Pattern: Excessive - Assessment/Plan (1) Hypotensive episode Status: Acute Plan: ADMIT, ICU CONTINUOUS BP AND CARDIAC MONITORING. SEIZURE PRECAUTIONS, VERIFY HOME MEDICATION. BS CONTROL, ELECTROLYTE REPLACEMENT. SERIAL EKG'S (2) Hypocalcemia Status: Acute (3) Chronic liver disease Status: Acute (4) Autoimmune pancreatitis Status: Acute (5) Diabetes Status: Chronic (6) Hypothyroid Status: Chronic (7) Bipolar 1 disorder Status: Chronic - Allergies Allergies/Adverse Reactions: Allergies Allergy/AdvReac Type Severity Reaction Status Date / Time acetaminophen [From Tylenol] Allergy Verified 04/13/18 11:45 metoclopramide [From Reglan] Allergy Verified 04/13/18 11:45 TAPE ADHESIVE Allergy Uncoded 04/13/18 11:45
--- NOTE | 2018-05-31 11:27 | PCM.PROG ---
Progress Note - Progress Note for Day of Date of Exam: 05/31/18 - Subjective Subjective: 27 WF ER ADMISSION ONE DAY AGO WITH HYPOTENSIVE SYNCOPE "SEIZURE LIKE" EPISODE. PT WAS HYPOTENSIVE PER EMS. PT ELECTROLYTE REPLACEMENT IMPROVING BP 113/80 THIS AM, CONTINUES WITH SINUS TACHYCARDIA. CA LEVEL NORMAL THIS AM, HYPOKALEMIC. PT CO LEFT KNEE PAIN AFTER A RECENT FALL. - Past Medical Family Social History Past Med/Fam/Surg Hx: No changes since H&P Allergies: Allergies acetaminophen [From Tylenol] Allergy (Verified 04/13/18 11:45) metoclopramide [From Reglan] Allergy (Verified 04/13/18 11:45) TAPE ADHESIVE Allergy (Uncoded 04/13/18 11:45) - Review of Systems ROS: No change since H&P - Vital Signs and I&O's Vital Signs: Temperature 99.1 F Pulse Rate [Left Radial] 120 Pulse Rate 114 Respiratory Rate 17 Blood Pressure [Right Arm] 113/80 Blood Pressure 75/39 O2 Sat by Pulse Oximetry 100 Intake and Output: Intake & Output 05/28/18 05/29/18 05/30/18 05/31/18 11:59 11:59 11:59 11:59 Intake Total 2958 / 2958 Balance 2958 / 2958 - Physical Exam Oriented: Normal Eyes: Normal Ear: Normal Nose: Normal Throat: Normal Respiratory: Normal Cardiovascular: Tachycardia. negative: Edema : Normal Auscultation: Bowel Sounds: Normal Tenderness: Normal Skin: Normal, Wound (left foot) Musculoskeletal: Left, Knee, Foot Psychiatric: Anxiety Affect: Anxious Speech Pattern: Excessive - Laboratory and Diagnostics Result Diagrams: 05/31/18 05:08 05/31/18 05:08 Labs: Laboratory WBC 5.1 X10^3/uL (3.6-10.0) 05/31/18 05:08 RBC 3.69 X10^6/uL (3.5-5.4) 05/31/18 05:08 Hgb 10.2 g/dL (12.0-16.0) L 05/31/18 05:08 Hct 30.8 % (36.0-47.0) L 05/31/18 05:08 MCV 83.5 fL (80.0-100.0) 05/31/18 05:08 MCH 27.7 pg (27.0-34.0) 05/31/18 05:08 MCHC 33.1 g/dL (33.0-35.0) 05/31/18 05:08 RDW 13.7 % (11.6-16.5) 05/31/18 05:08 Plt Count 305 X10^3/uL (150.0-450.0) 05/31/18 05:08 Plt Count Comment Adequate (ADEQUATE) 05/31/18 05:08 MPV 9.4 fL (7.4-11.0) 05/31/18 05:08 Neut % (Auto) 53.8 % (42.0-75.0) 05/31/18 05:08 Lymph % (Auto) 31.6 % (21.0-51.0) 05/31/18 05:08 [place] % (Auto) 9.7 % (0.0-13.0) 05/31/18 05:08 Eos % (Auto) 3.4 % (0.9-2.9) H 05/31/18 05:08 Baso % (Auto) 1.5 % (0.2-1.0) H 05/31/18 05:08 Neut # (Auto) 2.8 x10^3/uL (2.2-4.8) 05/31/18 05:08 Lymph # (Auto) 1.6 X10^3/uL (1.3-2.9) 05/31/18 05:08 [place] # (Auto) 0.5 x10^3/uL (0.3-0.8) 05/31/18 05:08 Eos # (Auto) 0.2 x10^3/uL (0.0-0.2) 05/31/18 05:08 Baso # (Auto) 0.1 X10^3/uL (0.0-0.1) 05/31/18 05:08 Absolute Nucleated RBC 0.1 /100WBC 05/31/18 05:08 Plt Morphology Comment Normal (NORMAL) 05/31/18 05:08 RBC Morphology Normal (NORMAL) 05/31/18 05:08 Sodium 133 mmol/L (136-145) L 05/31/18 05:08 Corrected Sodium 140 mmol/L (136-145) 05/31/18 05:08 Potassium 4.3 mmol/L (3.5-5.1) 05/31/18 05:08 Chloride 99 mmol/L (98-107) 05/31/18 05:08 Carbon Dioxide 17.6 mmol/L (21-32) L 05/31/18 05:08 BUN 12 mg/dL (7-18) 05/31/18 05:08 Creatinine 0.87 mg/dL (0.55-1.02) 05/31/18 05:08 Est GFR (MDRD) Af Amer > 60 (>60) 05/31/18 05:08 Est GFR (MDRD) Non-Af > 60 (>60) 05/31/18 05:08 Glucose 409 mg/dL (65-99) H 05/31/18 05:08 Lactic Acid 5.0 mmol/L (0.4-2.0) H 05/30/18 14:45 Calcium 9.0 mg/dL (8.5-10.1) 05/31/18 05:08 Corrected Calcium 9.7 mg/dL (8.5-10.1) 05/31/18 05:08 Phosphorus 4.2 mg/dL (2.6-4.7) 05/30/18 14:45 Magnesium 2.3 mg/dL (1.7-2.9) 05/30/18 14:45 Total Bilirubin 0.50 mg/dL (0.2-1.0) 05/31/18 05:08 AST 38 Units/L (15-37) H 05/31/18 05:08 ALT 32 Units/L (12-78) 05/31/18 05:08 Alkaline Phosphatase 174 Units/L (46-116) H 05/31/18 05:08 Creatine Kinase 62 Units/L (26-192) 05/31/18 05:08 CK-MB (CK-2) < 1.0 ng/mL (0-4.0) 05/31/18 05:08 CK/CKMB % Calc 1.6 % (<4) 05/31/18 05:08 Troponin I < 0.02 ng/mL (0-1.5) 05/31/18 05:08 Total Protein 7.6 g/dL (6.4-8.2) 05/31/18 05:08 Albumin 3.1 g/dL (3.4-5.0) L 05/31/18 05:08 Globulin 4.5 g/dL (2.5-4.5) 05/31/18 05:08 Albumin/Globulin Ratio 0.7 Ratio (1.1-2.1) L 05/31/18 05:08 Specimen Type Random urine 05/30/18 16:26 Urine Color Pale yellow (YELLOW) 05/30/18 16:26 Urine Appearance Clear (CLEAR) 05/30/18 16:26 Urine pH 6.5 (5.0 - 8.0) 05/30/18 16:26 Ur Specific [place] 1.010 (1.000-1.030) 05/30/18 16:26 Urine Protein Negative (NEGATIVE) 05/30/18 16:26 Urine Glucose (UA) 1+ (NEGATIVE) 05/30/18 16:26 Urine Ketones Negative (NEGATIVE) 05/30/18 16:26 Urine Occult Blood 2+ (NEGATIVE) 05/30/18 16:26 Urine Nitrite Negative (NEGATIVE) 05/30/18 16:26 Urine Bilirubin Negative (NEGATIVE) 05/30/18 16:26 Urine Urobilinogen Normal (NORMAL) 05/30/18 16:26 Ur Leukocyte Esterase Negative (NEGATIVE) 05/30/18 16:26 Urine RBC 3-5 /HPF (NONE SEEN) 05/30/18 16:26 Urine WBC 0-2 /HPF (NONE SEEN) 05/30/18 16:26 Ur Squamous Epith Cells Few /HPF (NEGATIVE) 05/30/18 16:26 Urine Bacteria 1+ /HPF (NEGATIVE) 05/30/18 16:26 Urine Yeast Rare /HPF (NEGATIVE) 05/30/18 16:26 Ur Culture Indicated? No/not indicated 05/30/18 16:26 Urine Opiates Screen Negative (NEG=<300) 05/30/18 16:26 Urine Methadone Screen Negative (NEG=<300) 05/30/18 16:26 Ur Barbiturates Screen Negative (NEG=<200) 05/30/18 16:26 Ur Phencyclidine Scrn Negative (NEG=<25) 05/30/18 16:26 Ur Amphetamines Screen Negative (NEG=<1000) 05/30/18 16:26 U Benzodiazepines Scrn Negative (NEG=<200) 07/03/18 16:26 Urine Cocaine Screen Negative (NEG=<300) 05/30/18 16:26 U Marijuana (THC) Screen Negative (NEG=<50) 05/30/18 16:26 Acetone, Semi-Quant Negative (NEGATIVE) 05/30/18 14:45 - Plan (1) Hypotensive episode Status: Acute Plan: ICU CONTINUOUS BP AND CARDIAC MONITORING. SEIZURE PRECAUTIONS, EDUCATE ON HOME MEDS INCREASING RISK FOR HYPOTENSION IE: GABAPENTIN. BS CONTROL, ELECTROLYTE REPLACEMENT. SERIAL EKG'S (2) Hypocalcemia Status: Acute (3) Chronic liver disease Status: Acute (4) Autoimmune pancreatitis Status: Acute (5) Diabetes Status: Chronic (6) Hypothyroid Status: Chronic Plan: TSH AND FREE T 4 LEVELS (7) Bipolar 1 disorder Status: Chronic
[2018-05-31] MEDS ORDERED: VIBRAMYCIN PO SCH (11:30)
[2018-05-31 11:41] LABS: FREE T4 (FREE THYROXINE) 1.42 ng/dL (0.76-1.46); TSH (3RD GENERATION) 0.212 uIU/mL (0.358-3.74)
[2018-05-31 11:57] LABS: AMYLASE 28 Units/L (25-115); LIPASE 165 Units/L (73-393)
[2018-05-31] MEDS ORDERED: FLORINEF PO SCH (12:00)
[2018-05-31] MEDS ORDERED: HumuLIN R SUBCUT PRN (12:03)
[2018-05-31 12:06] LABS: LACTIC ACID 1.3 mmol/L (0.4-2.0)
--- NOTE | 2018-05-31 12:08 | RAD ---
Two views of the left knee. Indication: Knee pain Findings: There is no fracture dislocation within the left knee. No joint effusion or localizing soft tissue swelling. There is mild patellofemoral and medial femorotibial compartment degenerative willson e. Impression: 1.No acute radiographic abnormality within the left knee. 2. Mild medial femorotibial and patellofemoral compartment osteoarthrosis. Reported By:
--- NOTE | 2018-05-31 12:28 | RAD ---
Three views of the left foot Indication: Left foot pain with reported infection Comparison: 03/10/2018 Findings: Since previous examination there is moderate cortical destruction of the great toe proximal phalanx with surrounding soft tissue swelling almost certainly represent osteomyelitis. There is als o hazy appearance of the great toe metatarsal head cortex and distal phalangeal base suspicious for s eptic arthritis and extension of osteomyelitis. Diffuse osteopenia is noted within the left forefoot. Lisfranc joint alignment is maintained. Since previous examination there is been avulsion fracture w ith displacement of it these fatty change of the distal Achilles with a large os ossific avulsion fra cture fragment measuring 17 mm displaced proximally. Soft tissue swelling is noted within the posteri or portion of the left hindfoot. There is calcified atherosclerotic disease noted within the posterio r tibial and dorsalis pedis arteries. Impression: 1.Radiographic evidence consistent with osteomyelitis of the great toe proximal phalanx with surround ing soft tissue swelling/infection. Irregularity and haziness of the cortical bone of the great toe m etatarsal head and distal phalangeal base suspicious for associated osteomyelitis and septic arthriti s. 2. Interval displacement of a large avulsion fracture within the posterior hindfoot/ankle consistent with avulsion of the distal insertion of the Achilles tendon. The surrounding soft tissue swelling in this location suggest this represents an acute/subacute injury. Reported By:
[2018-05-31] MEDS ORDERED: LIPASE PROTEASE AMYLASE PO SCH (14:00)
[2018-05-31 15:19] VITALS: BP 122/84
[2018-05-31] MEDS ORDERED: SNACK - Diabetic Appropriate PO SCH (20:00)
[2018-05-31] MEDS ORDERED: PROTONIX TAB 40 MG PO SCH (21:00)
[2018-05-31] MEDS ORDERED: PAROXETINE HCL 40 MG PO SCH (21:00)
[2018-05-31] MEDS ORDERED: PAXIL PO SCH (21:00)
[2018-06-01] MEDS ORDERED: GEODON PO SCH (09:00)
[2018-06-01] MEDS ORDERED: SYNTHROID 100 mcg TAB PO SCH (09:00)
[2018-06-01] MEDS ORDERED: LIOTHYRONINE SODIUM 5 MCG PO SCH (09:00)
== END 2018-05-31 17:15 | disposition left against medical advice (07) ==
LOC: ICU 13:54 → ER 13:54 → ICU 19:11
PROVIDERS: ADMIT Internal Medicine; ATTEND Internal Medicine
DX: E11.9 Type 2 diabetes mellitus without complications; G40.802 Other epilepsy, not intractable, without status epilepticus; K86.1 Other chronic pancreatitis; M25.562 Pain in left knee; R00.0 Tachycardia, unspecified; R19.7 Diarrhea, unspecified; F31.89 Other bipolar disorder; Z79.899 Other long term (current) drug therapy; E87.8 Other disorders of electrolyte and fluid balance, not elsewhere classified; B95.1 Streptococcus, group B, as the cause of diseases classified elsewhere; I95.89 Other hypotension; R55 Syncope and collapse; W19.XXXA Unspecified fall, initial encounter; R82.99 Other abnormal findings in urine; M86.672 Other chronic osteomyelitis, left ankle and foot; S82.892A Other fracture of left lower leg, initial encounter for closed fracture; Y92.89 Other specified places as the place of occurrence of the external cause
CPT/HCPCS: 36415; 71010; 71045; 73560; 73630; 80053; 80307; 81001; 82009; 82150; 82310; 82550; 82553; 83605; 83690; 83735; 84100; 84439; 84443; 84484; 85025; 87040; 87070; 87075; 87076; 87077; 87186; 93005; 93010; 96365; 96367; 96374; 99284; 99285; A4216; A4222; G0378; G0434; J0610; J1815; J7030; J7050

== ENCOUNTER 2018-06-05 11:40 | Observation (INO) ==
[~2018-06-05 11:40] MED LIST: NS 1000 ML 1,000 ML ONE
[2018-06-05 11:53] VITALS: BMI 25.4
[2018-06-05] MEDS ORDERED: NS 1000 ML 1,000 ML IV ONE (11:56)
--- NOTE | 2018-06-05 11:57 | DR.GENAD ---
HPI - PCP Primary Care Physician: paolo - HPI Comment HPI Comment: PATIENTS MOTHER DROVE PATIENT TO ED WITH AMS. SHE SAID HER DAUGHTER HAVE HAD SEIZURE AT HOME WELL. SHE IS A KNOWN DIABETIC NOTED DURING EVALUATION IN ED TO BE HYPOTENSIVE. GLUCOSE ELEVATED. - Complaint/Symptoms Chief Complaint Doctors Comments: AMS, SEIZURE AND MALAISE NOTED TODAY. Chief Complaint:: pts mother drove up to the ambulance entrance pressing the call button. she stated her daughter has been passing out and having low blood pressure. she stated she had a seizure earlier today. - Nurses notes reviewed Nurses Notes Review: Yes - Source History Provided: Patient - Mode of Arrival Mode of Arrival: Ambulatory - Timing Onset of Chief Complaint: 06/05/18 Came on: Suddenly - Duration Duration: Constant Duration: Days - Severity Severity: Moderate PMH - PMH Past Medical History: Yes Past Medical History: Anxiety, CHF, Diabetes, Migraines, GERD, Hypothyroidism, Liver Disease Past Surgical History: Yes Surgical History: Appendectomy, Cholecystectomy, Ortho Surgery - Family History History of Family Medical Conditions: Yes Family Medical History: Diabetes Mellitus, Cancer, Heart Failure, Hypertension - Social History Does patient currently use any type of tobacco product: No Have you used tobacco products in the last 12 months: No Type of Tobacco Use: None Does any household member use tobacco: No Alcohol Use: None Do you use any recreational Drugs:: No Lives With: Family Lives Where: Home - infectious screening In the last 2 months have you had wt loss of >10#?: NO Have you had fever, night sweats or hemotysis?: No Have you traveled outside the country in the last 6 months?: No Isolation: Standard ROS - Review of Systems Constitutional: Weakness, Fatigue Eyes: Blurred Vision ENTM: No Symptoms Reported Respiratoy: Short of Breath. negative: Productive Cough, Non-Productive Cough, Wheezing, Hemoptysis Cardiovascular: No Symptoms Reported Gastrointestinal/Abdominal: No Symptoms Reported Genitourinary: No Symptoms Reported Neurological: Seizure, Weakness, Dizziness Integumentary: No Symptoms Reported Hematologic/Lymphatic: No Symptoms Reported Endocrine: No Symptoms Reported All Other Systems: Reviewed and Negative PE - General Limitations: No Limitations General Appearance: Alert - Head Head Exam: Normal Inspection - Eyes Eye exam: Normal Appearance - ENT ENT Exam: Normal External Ear Exam External Ear Exam: Normal External Inspection TM/Canal Exam: Bilateral Normal Nose Exam: Normal Nose Exam Mouth Exam: Normal Inspection Throat Exam: Normal Inspection - Neck Neck Exam: Trachea Midline - Chest Chest Inspection: Symmetric Chest Wall Rise - Respiratory Respiratory Exam: Normal Lung Sounds Bilat Respiratory Exam: Bilateral Clear to Auscultation - Cardiovascular Cardiovascular Exam: Regular Rate, Normal Rhythm, Normal Heart Sounds - Abdominal Exam Abdominal Exam: Normal Bowel Sounds - Extremities Extremities Exam: Normal Inspection - Back Back Exam: Normal Inspection - Neurologic Neurological Exam: Alert, Oriented X3 - Psychiatric Psychiatric Exam: Normal Affect, Normal Mood - Skin Skin Exam: Normal Color - Vital Signs Vitals: Temperature 98.6 F Pulse Rate [Left Brachial] 120 Pulse Rate 131 Respiratory Rate 22 Blood Pressure [Right Arm] 98/56 Blood Pressure 79/56 O2 Sat by Pulse Oximetry 100 MDM - Differential Diagnosis Differential Diagnosis: DKA, SEPSIS, HYPOTENSION, DEHYDRATION Course - Treatment Treatment: SEE ORDERS. - Consultation Consultation Comments: DISCUSS PATIENT WITH DR. CONDE. HE ACCEPTED PATIENT TO BE ADMITTED. - Education/Counseling Education/Counseling: Patient, Education Educated On: Diagnosis ROR - Labs Reviewed Result Diagrams: 06/07/18 04:45 06/07/18 08:30 - EKG Rate: 127 Rhythm: ST (EKG NOTED.) - Labs Reviewed Laboratory: WBC 5.3 X10^3/uL (3.6-10.0) 06/05/18 11:35 RBC 4.27 X10^6/uL (3.5-5.4) 06/05/18 11:35 Hgb 11.9 g/dL (12.0-16.0) L 06/05/18 11:35 Hct 35.7 % (36.0-47.0) L 06/05/18 11:35 MCV 83.6 fL (80.0-100.0) 06/05/18 11:35 MCH 27.9 pg (27.0-34.0) 06/05/18 11:35 MCHC 33.4 g/dL (33.0-35.0) 06/05/18 11:35 RDW 13.4 % (11.6-16.5) 06/05/18 11:35 Plt Count 393 X10^3/uL (150.0-450.0) 06/05/18 11:35 MPV 8.4 fL (7.4-11.0) 06/05/18 11:35 Neut % (Auto) 60.4 % (42.0-75.0) 06/05/18 11:35 Lymph % (Auto) 29.4 % (21.0-51.0) 06/05/18 11:35 [place] % (Auto) 8.3 % (0.0-13.0) 06/05/18 11:35 Eos % (Auto) 0.7 % (0.9-2.9) L 06/05/18 11:35 Baso % (Auto) 1.2 % (0.2-1.0) H 06/05/18 11:35 Neut # (Auto) 3.2 x10^3/uL (2.2-4.8) 06/05/18 11:35 Lymph # (Auto) 1.6 X10^3/uL (1.3-2.9) 06/05/18 11:35 [place] # (Auto) 0.4 x10^3/uL (0.3-0.8) 06/05/18 11:35 Eos # (Auto) 0.0 x10^3/uL (0.0-0.2) 06/05/18 11:35 Baso # (Auto) 0.1 X10^3/uL (0.0-0.1) 06/05/18 11:35 Absolute Nucleated RBC 0.0 /100WBC 06/05/18 11:35 Sodium 133 mmol/L (136-145) L 06/05/18 11:35 Corrected Sodium 136 mmol/L (136-145) 06/05/18 11:35 Potassium 3.7 mmol/L (3.5-5.1) 06/05/18 11:35 Chloride 93 mmol/L (98-107) L 06/05/18 11:35 Carbon Dioxide 13.6 mmol/L (21-32) L* 06/05/18 11:35 BUN 26 mg/dL (7-18) H 06/05/18 11:35 Creatinine 1.71 mg/dL (0.55-1.02) H 06/05/18 11:35 Est GFR (MDRD) Af Amer 46 (>60) L 06/05/18 11:35 Est GFR (MDRD) Non-Af 38 (>60) L 06/05/18 11:35 Glucose 239 mg/dL (65-99) H 06/05/18 11:35 Lactic Acid 7.4 mmol/L (0.4-2.0) H 06/05/18 11:35 Calcium 10.3 mg/dL (8.5-10.1) H 06/05/18 11:35 Corrected Calcium TNP 06/05/18 11:35 Total Bilirubin 0.50 mg/dL (0.2-1.0) 06/05/18 11:35 AST 24 Units/L (15-37) 06/05/18 11:35 ALT 26 Units/L (12-78) 06/05/18 11:35 Alkaline Phosphatase 186 Units/L (46-116) H 06/05/18 11:35 Creatine Kinase 37 Units/L (26-192) 06/05/18 11:35 CK-MB (CK-2) < 1.0 ng/mL (0-4.0) 06/05/18 11:35 CK/CKMB % Calc 2.7 % (<4) 06/05/18 11:35 Troponin I < 0.02 ng/mL (0-1.5) 06/05/18 11:35 C-Reactive Protein 12.40 mg/L (0-3.0) H 06/05/18 11:35 Total Protein 8.6 g/dL (6.4-8.2) H 06/05/18 11:35 Albumin 3.5 g/dL (3.4-5.0) 06/05/18 11:35 Globulin 5.1 g/dL (2.5-4.5) H 06/05/18 11:35 Albumin/Globulin Ratio 0.7 Ratio (1.1-2.1) L 06/05/18 11:35 Acetone, Semi-Quant Small (NEGATIVE) H 06/05/18 11:35 - Diagnosis Discharge Problem: Hyperglycemia Hypotension Qualifiers: Hypotension type: other hypotension type Qualified Code(s): I95.89 - Other hypotension Sepsis Qualifiers: Sepsis type: sepsis due to unspecified organism Qualified Code(s): A41.9 - Sepsis, unspecified organism - Discharge Plan Disposition: ADMITTED INPATIENT Condition: Stable
[2018-06-05] MEDS: NS 1000 ML 1,000 ML IV SCH ×2 (12:03→21:52)
[2018-06-05 12:09] LABS: BASOPHILS # (AUTO) 0.1 X10^3/uL (0.0-0.1); BASOPHILS % (AUTO) 1.2 % (0.2-1.0); EOSINOPHILS % (AUTO) 0.7 % (0.9-2.9); HEMATOCRIT 35.7 % (36.0-47.0); HEMOGLOBIN 11.9 g/dL (12.0-16.0); LYMPHOCYTES # (AUTO) 1.6 X10^3/uL (1.3-2.9); LYMPHOCYTES % (AUTO) 29.4 % (21.0-51.0); MEAN CORPUSCULAR HEMOGLOBIN 27.9 pg (27.0-34.0); MEAN CORPUSCULAR HGB CONC 33.4 g/dL (33.0-35.0); MEAN CORPUSCULAR VOLUME 83.6 fL (80.0-100.0); MEAN PLATELET VOLUME 8.4 fL (7.4-11.0); MONOCYTES # (AUTO) 0.4 x10^3/uL (0.3-0.8); MONOCYTES % (AUTO) 8.3 % (0.0-13.0); NEUTROPHILS # (AUTO) 3.2 x10^3/uL (2.2-4.8); NEUTROPHILS % (AUTO) 60.4 % (42.0-75.0); PLATELET COUNT 393 X10^3/uL (150.0-450.0); RED BLOOD COUNT 4.27 X10^6/uL (3.5-5.4); RED CELL DISTRIBUTION WIDTH 13.4 % (11.6-16.5); WHITE BLOOD COUNT 5.3 X10^3/uL (3.6-10.0)
[2018-06-05 12:26] LABS: LACTIC ACID 7.4 mmol/L (0.4-2.0)
[2018-06-05 12:31] LABS: ALANINE AMINOTRANSFERASE 26 Units/L (12-78); ALBUMIN 3.5 g/dL (3.4-5.0); ALKALINE PHOSPHATASE 186 Units/L (46-116); ASPARTATE AMINO TRANSFERASE 24 Units/L (15-37); BLOOD UREA NITROGEN 26 mg/dL (7-18); CALCIUM 10.3 mg/dL (8.5-10.1); CHLORIDE 93 mmol/L (98-107); CKMB % 2.7 % (<4); COR NA(FOR HYPERGLY) 136 mmol/L (136-145); CREATINE KINASE 37 Units/L (26-192); CREATINE KINASE MB < 1.0 ng/mL (0-4.0); CREATININE 1.71 mg/dL (0.55-1.02); SODIUM 133 mmol/L (136-145); TOTAL PROTEIN 8.6 g/dL (6.4-8.2); TROPONIN I < 0.02 ng/mL (0-1.5); eGFR NON BLACK RACES 38 (>60)
[2018-06-05 12:35] LABS: CARBON DIOXIDE 13.6 mmol/L (21-32)
[2018-06-05 13:59] LABS: AMYLASE 42 Units/L (25-115); LIPASE 330 Units/L (73-393)
[2018-06-05 14:06] LABS: ABG BASE EXCESS -7.2 mmol/L (-2.0-2.0)
[2018-06-05 14:08] LABS: ABG HCO3 16.1 mmol/L (22-26)
[2018-06-05 14:09] LABS: ABG ALLEN TEST POS
[2018-06-05] MEDS ORDERED: NS 1000 ML 1,000 ML IV SCH (16:00)
[2018-06-05] MEDS: HumuLIN R SC PRN ×2 (16:49→21:10)
[2018-06-05 18:35] LABS: CKMB % 2.8 % (<4); CREATINE KINASE 36 Units/L (26-192); CREATINE KINASE MB < 1.0 ng/mL (0-4.0); TROPONIN I < 0.02 ng/mL (0-1.5)
--- NOTE | 2018-06-05 22:33 | DR.H&P ---
H&P - History & Physical for Day of: H&P Date: 06/05/18 - Chief Complaint Chief Complaint: Passing out and seizure with low blood pressure - History of Present Illness History of Present Illness: pts mother drove up to the ambulance entrance pressing the call button. she stated her daughter has been passing out and having low blood pressure. she stated she had a seizure earlier today. - Past Medical History Past Medical History: Anxiety, CHF, Diabetes, Migraines, GERD, Hypothyroidism, Liver Disease Additional Medical History: Hypotension, Auto Immune Pancreatitis, Bipolar Disorder, Deaf (L) Ear, Polycystic ovarian disease, Gall bladder disease, Pancreatitis, Crohn's disease, Constipation, Hormone disorder - Past Surgical History Surgical History: Appendectomy, Cholecystectomy, Ortho Surgery, Other Additional Surgical History: Port-a-cath placement - Family History Family Medical History: Diabetes Mellitus, Cancer, Hypertension - Social History Does patient currently use any type of tobacco product: No Have you used tobacco products in the last 12 months: No Type of Tobacco Use: Cigarettes Does any household member use tobacco: No Alcohol Use: None Drug Use: Prescription Drugs - Medications Home Medications: acetaminophen [From Tylenol] Allergy (Verified 06/05/18 11:41) metoclopramide [From Reglan] Allergy (Verified 06/05/18 11:41) TAPE ADHESIVE Allergy (Uncoded 06/05/18 11:41) CONTINUE taking the following medications lubiprostone 24 mcg PO BID 06/05/18 [History] ondansetron [Zofran ODT] 4 mg PO Q6H PRN 06/05/18 [History] - Review of Systems Constitutional: Weakness, Malaise Eyes: No Symptoms Reported ENT: No Symptoms Reported Respiratory: No Symptoms Reported Cardiovascular: [place] Gastrointestinal: No Symptoms Reported Genitourinary: No Symptoms Reported Musculoskeletal: No Symptoms Reported Skin: Wound Neurological: Seizures - Physical Exam Vital Signs: Temperature 98.9 F Pulse Rate [Left Brachial] 114 Pulse Rate 131 Respiratory Rate 18 Blood Pressure [Right Arm] 106/63 Blood Pressure 79/56 O2 Sat by Pulse Oximetry 100 Oriented: Normal Eyes: Normal Ear: Normal Nose: Normal Throat: Normal Respiratory: Clear Throughout Cardiovascular: Normal : Normal Auscultation: Bowel Sounds: Normal Palpation: Spleen Enlarged Tenderness: Normal Skin: Wound (Left foot 2 wounds) Musculoskeletal: Normal Psychiatric: Normal Mood Description: Calm Affect: Normal Speech Pattern: Clear - Assessment/Plan (1) DKA (diabetic ketoacidoses) Status: Acute Plan: IVF hydration, FSBS checks, Insulin as needed (2) Hypotension Status: Acute Plan: IV hydration, Monitor BP (3) Syncopal episodes Status: Acute Plan: IV Hydration, Monitor BS. Monitor for potential seizure activity. - Allergies Allergies/Adverse Reactions: Allergies Allergy/AdvReac Type Severity Reaction Status Date / Time acetaminophen [From Tylenol] Allergy Verified 06/05/18 11:41 metoclopramide [From Reglan] Allergy Verified 06/05/18 11:41 TAPE ADHESIVE Allergy Uncoded 06/05/18 11:41
[2018-06-05] MEDS ORDERED: ZOFRAN TAB 4 MG PO PRN (22:37)
[2018-06-05] MEDS ORDERED: HumaLOG SC SCH (23:00)
[2018-06-05] MEDS ORDERED: VIBRAMYCIN PO SCH (23:00)
[2018-06-06 01:17] LABS: CKMB % 2.9 % (<4); CREATINE KINASE 35 Units/L (26-192); CREATINE KINASE MB < 1.0 ng/mL (0-4.0); TROPONIN I < 0.02 ng/mL (0-1.5)
[2018-06-06 04:37] LABS: BILIRUBIN,URINE NEGATIVE (NEGATIVE); BLOOD/HEMOGLOBIN,URINE 2+ (NEGATIVE); GLUCOSE, URINE 4+ (NEGATIVE); KETONES,URINE 2+ (NEGATIVE); LEUKOCYTE ESTERASE ,URINE NEGATIVE (NEGATIVE); NITRITES,URINE NEGATIVE (NEGATIVE); PROTEIN,URINE 2+ (NEGATIVE); UROBILINOGEN,URINE NORMAL (NORMAL)
[2018-06-06 04:48] LABS: APPEARANCE,URINE CLEAR (CLEAR); BACTERIA,URINE NEGATIVE /HPF (NEGATIVE); COLOR,URINE STRAW (YELLOW); SQUAMOUS EPITHELIAL CELL,UR MODERATE /HPF (NEGATIVE)
[2018-06-06 04:49] LABS: YEAST,URINE FEW /HPF (NEGATIVE)
[2018-06-06] MEDS: NS 1000 ML 1,000 ML IV SCH ×3 (06:01→20:45)
[2018-06-06] MEDS: LIPASE PROTEASE AMYLASE PO SCH ×3 (06:02→21:35)
[2018-06-06] MEDS: NEURONTIN TAB 600 MG PO SCH ×3 (06:02→21:35)
[2018-06-06 06:16] LABS: BASOPHILS # (AUTO) 0.1 X10^3/uL (0.0-0.1); BASOPHILS % (AUTO) 1.4 % (0.2-1.0); EOSINOPHILS # (AUTO) 0.1 x10^3/uL (0.0-0.2); EOSINOPHILS % (AUTO) 2.5 % (0.9-2.9); HEMATOCRIT 30.9 % (36.0-47.0); HEMOGLOBIN 10.5 g/dL (12.0-16.0); LYMPHOCYTES # (AUTO) 1.3 X10^3/uL (1.3-2.9); LYMPHOCYTES % (AUTO) 35.2 % (21.0-51.0); MEAN CORPUSCULAR HEMOGLOBIN 28.2 pg (27.0-34.0); MEAN CORPUSCULAR VOLUME 82.9 fL (80.0-100.0); MONOCYTES # (AUTO) 0.4 x10^3/uL (0.3-0.8); MONOCYTES % (AUTO) 10.2 % (0.0-13.0); NEUTROPHILS # (AUTO) 1.9 x10^3/uL (2.2-4.8); NEUTROPHILS % (AUTO) 50.7 % (42.0-75.0); PLATELET COUNT 268 X10^3/uL (150.0-450.0); RED BLOOD COUNT 3.72 X10^6/uL (3.5-5.4); WHITE BLOOD COUNT 3.7 X10^3/uL (3.6-10.0)
[2018-06-06 06:45] LABS: ALANINE AMINOTRANSFERASE 25 Units/L (12-78); ALBUMIN 3.1 g/dL (3.4-5.0); ALKALINE PHOSPHATASE 160 Units/L (46-116); ASPARTATE AMINO TRANSFERASE 29 Units/L (15-37); BLOOD UREA NITROGEN 16 mg/dL (7-18); CALCIUM 8.9 mg/dL (8.5-10.1); CARBON DIOXIDE 16.8 mmol/L (21-32); CHLORIDE 96 mmol/L (98-107); COR CA(FOR HYPOALB) 9.6 mg/dL (8.5-10.1); COR NA(FOR HYPERGLY) 139 mmol/L (136-145); CREATININE 0.91 mg/dL (0.55-1.02); MAGNESIUM 1.6 mg/dL (1.7-2.9); SODIUM 131 mmol/L (136-145); TOTAL PROTEIN 7.6 g/dL (6.4-8.2); eGFR NON BLACK RACES > 60 (>60)
[2018-06-06] MEDS: HumuLIN R SC PRN ×3 (07:30→17:21)
[2018-06-06] MEDS: VIBRAMYCIN PO SCH ×2 (08:52→20:42)
[2018-06-06] MEDS: PAXIL PO SCH ×2 (08:52→20:42)
[2018-06-06] MEDS: PROTONIX TAB 40 MG PO SCH ×2 (08:52→20:42)
[2018-06-06] MEDS: GEODON PO SCH (08:53)
[2018-06-06] MEDS: FLORINEF PO SCH (08:53)
[2018-06-06] MEDS: ATARAX TAB 25 MG PO SCH ×2 (08:53→20:42)
[2018-06-06] MEDS: SYNTHROID 100 mcg TAB PO SCH (08:55)
[2018-06-06] MEDS ORDERED: PAROXETINE HCL 40 MG PO SCH (09:00)
[2018-06-06] MEDS: LUBIPROSTONE 24 MCG PO SCH ×2 (10:16→20:44)
[2018-06-06] MEDS: LIOTHYRONINE SODIUM 5 MCG PO SCH (10:16)
[2018-06-06] MEDS ORDERED: MOTRIN TAB 400 MG PO PRN (11:46)
[2018-06-06] MEDS: IMURAN PO SCH (12:15)
[2018-06-06] MEDS: MAGNESIUM SULFATE 1 GRAM/100 mL PREMIX 1 GM/100 ML BAG IV PRN ×2 (17:26→18:35)
[2018-06-06] MEDS ORDERED: LANTUS SC SCH (21:00)
[2018-06-06] MEDS ORDERED: ELAVIL PO SCH (21:00)
--- NOTE | 2018-06-06 22:07 | PCM.PROG ---
Progress Note - Progress Note for Day of Date of Exam: 06/06/18 - Subjective Subjective: Patient admitted after hypotensive episode. BP stable today. Serum acetone still remaines small. Patient states she stays hydrated by drinking a gallon of water per day and 8-10 Poweraids. Patient states wounds to left foot are from her walking boot. Patient states she has a team of doctors taking care of her in [place]. - Past Medical Family Social History Past Med/Fam/Surg Hx: No changes since H&P Allergies: Allergies acetaminophen [From Tylenol] Allergy (Verified 06/05/18 11:41) metoclopramide [From Reglan] Allergy (Verified 06/05/18 11:41) TAPE ADHESIVE Allergy (Uncoded 06/05/18 11:41) - Review of Systems ROS: No change since H&P - Vital Signs and I&O's Vital Signs: Temperature 99.1 F Pulse Rate [Left Brachial] 114 Pulse Rate 131 Respiratory Rate 21 Blood Pressure [Right Arm] 110/73 Blood Pressure 79/56 O2 Sat by Pulse Oximetry 98 Intake and Output: Intake & Output 06/04/18 06/05/18 06/06/18 06/07/18 11:59 11:59 11:59 11:59 Intake Total 3270 / 3270 3327 / 3327 Balance 3270 / 3270 3327 / 3327 - Physical Exam Oriented: Normal Eyes: Normal Ear: Normal Nose: Normal Throat: Normal Respiratory: Normal Cardiovascular: Normal : Normal Auscultation: Bowel Sounds: Normal Palpation: Normal Tenderness: Normal Skin: Wound (Left foot 2 wounds) Musculoskeletal: Normal Psychiatric: Normal Mood Description: Calm Affect: Normal Speech Pattern: Clear - Laboratory and Diagnostics Result Diagrams: 06/06/18 05:42 06/06/18 11:38 Labs: 06/05/18 16:59 Foot - Left Gram Stain - Final 06/05/18 16:59 Foot - Left Wound Culture - Preliminary 06/05/18 16:59 Foot - Left Gram Stain - Final 06/05/18 16:59 Foot - Left Wound Culture - Preliminary Laboratory WBC 3.7 X10^3/uL (3.6-10.0) 06/06/18 05:42 RBC 3.72 X10^6/uL (3.5-5.4) 06/06/18 05:42 Hgb 10.5 g/dL (12.0-16.0) L 06/06/18 05:42 Hct 30.9 % (36.0-47.0) L 06/06/18 05:42 MCV 82.9 fL (80.0-100.0) 06/06/18 05:42 MCH 28.2 pg (27.0-34.0) 06/06/18 05:42 MCHC 34.0 g/dL (33.0-35.0) 06/06/18 05:42 RDW 13.0 % (11.6-16.5) 06/06/18 05:42 Plt Count 268 X10^3/uL (150.0-450.0) 06/06/18 05:42 MPV 8.0 fL (7.4-11.0) 06/06/18 05:42 Neut % (Auto) 50.7 % (42.0-75.0) 06/06/18 05:42 Lymph % (Auto) 35.2 % (21.0-51.0) 06/06/18 05:42 [place] % (Auto) 10.2 % (0.0-13.0) 06/06/18 05:42 Eos % (Auto) 2.5 % (0.9-2.9) 06/06/18 05:42 Baso % (Auto) 1.4 % (0.2-1.0) H 06/06/18 05:42 Neut # (Auto) 1.9 x10^3/uL (2.2-4.8) L 06/06/18 05:42 Lymph # (Auto) 1.3 X10^3/uL (1.3-2.9) 06/06/18 05:42 [place] # (Auto) 0.4 x10^3/uL (0.3-0.8) 06/06/18 05:42 Eos # (Auto) 0.1 x10^3/uL (0.0-0.2) 06/06/18 05:42 Baso # (Auto) 0.1 X10^3/uL (0.0-0.1) 06/06/18 05:42 Absolute Nucleated RBC 0.0 /100WBC 06/06/18 05:42 Sample Site Rra 06/05/18 14:00 ABG pH 7.400 (7.35-7.45) 06/05/18 14:00 ABG pCO2 26.0 mmHg (35.0-45.0) L 06/05/18 14:00 ABG pO2 112.0 mmHg (80.0-100.0) H 06/05/18 14:00 ABG HCO3 16.1 mmol/L (22-26) L* 06/05/18 14:00 ABG O2 Saturation 98.0 % (90-100) 06/05/18 14:00 ABG Base Excess -7.2 mmol/L (-2.0-2.0) L 06/05/18 14:00 Shivam Test Pos 06/05/18 14:00 A-a Gradient 5.0 mmHg 06/05/18 14:00 FiO2 21.000 06/05/18 14:00 Blood Gas Comments Sasha well cs 06/05/18 14:00 Sodium 131 mmol/L (136-145) L 06/06/18 05:42 Corrected Sodium 139 mmol/L (136-145) 06/06/18 05:42 Potassium 3.8 mmol/L (3.5-5.1) 06/06/18 05:42 Chloride 96 mmol/L (98-107) L 06/06/18 05:42 Carbon Dioxide 16.8 mmol/L (21-32) L 06/06/18 05:42 BUN 16 mg/dL (7-18) 06/06/18 05:42 Creatinine 0.91 mg/dL (0.55-1.02) 06/06/18 05:42 Est GFR (MDRD) Af Amer > 60 (>60) 06/06/18 05:42 Est GFR (MDRD) Non-Af > 60 (>60) 06/06/18 05:42 Glucose 381 mg/dL (65-99) H 06/06/18 11:38 POC Glucose (mg/dL) 316 mg/dL (65-99) H 06/06/18 20:29 Lactic Acid 7.4 mmol/L (0.4-2.0) H 06/05/18 11:35 Calcium 8.9 mg/dL (8.5-10.1) 06/06/18 05:42 Corrected Calcium 9.6 mg/dL (8.5-10.1) 06/06/18 05:42 Magnesium 1.6 mg/dL (1.7-2.9) L 06/06/18 05:42 Total Bilirubin 0.40 mg/dL (0.2-1.0) 06/06/18 05:42 AST 29 Units/L (15-37) 06/06/18 05:42 ALT 25 Units/L (12-78) 06/06/18 05:42 Alkaline Phosphatase 160 Units/L (46-116) H 06/06/18 05:42 Creatine Kinase 35 Units/L (26-192) 06/06/18 00:18 CK-MB (CK-2) < 1.0 ng/mL (0-4.0) 06/06/18 00:18 CK/CKMB % Calc 2.9 % (<4) 06/06/18 00:18 Troponin I < 0.02 ng/mL (0-1.5) 06/06/18 00:18 C-Reactive Protein 12.40 mg/L (0-3.0) H 06/05/18 11:35 Total Protein 7.6 g/dL (6.4-8.2) 06/06/18 05:42 Albumin 3.1 g/dL (3.4-5.0) L 06/06/18 05:42 Globulin 4.5 g/dL (2.5-4.5) 06/06/18 05:42 Albumin/Globulin Ratio 0.7 Ratio (1.1-2.1) L 06/06/18 05:42 Amylase 42 Units/L (25-115) 06/05/18 11:35 Lipase 330 Units/L (73-393) 06/05/18 11:35 Specimen Type Clean catch urine 06/06/18 04:27 Urine Color Straw (YELLOW) 06/06/18 04:27 Urine Appearance Clear (CLEAR) 06/06/18 04:27 Urine pH 5.0 (5.0 - 8.0) 06/06/18 04:27 Ur Specific [place] 1.005 (1.000-1.030) 06/06/18 04:27 Urine Protein 2+ (NEGATIVE) 06/06/18 04:27 Urine Glucose (UA) 4+ (NEGATIVE) 06/06/18 04:27 Urine Ketones 2+ (NEGATIVE) 06/06/18 04:27 Urine Occult Blood 2+ (NEGATIVE) 06/06/18 04:27 Urine Nitrite Negative (NEGATIVE) 06/06/18 04:27 Urine Bilirubin Negative (NEGATIVE) 06/06/18 04:27 Urine Urobilinogen Normal (NORMAL) 06/06/18 04:27 Ur Leukocyte Esterase Negative (NEGATIVE) 06/06/18 04:27 Urine RBC 3-5 /HPF (NONE SEEN) 06/06/18 04:27 Urine WBC None seen /HPF (NONE SEEN) 06/06/18 04:27 Ur Squamous Epith Cells Moderate /HPF (NEGATIVE) 06/06/18 04:27 Urine Bacteria Negative /HPF (NEGATIVE) 06/06/18 04:27 Urine Yeast Few /HPF (NEGATIVE) 06/06/18 04:27 Ur Culture Indicated? No/not indicated 06/06/18 04:27 Acetone, Semi-Quant Small (NEGATIVE) H 06/06/18 07:54 - Plan (1) DKA (diabetic ketoacidoses) Status: Acute Plan: IVF hydration, FSBS checks, Insulin as needed (2) Hypotension Status: Acute Plan: IV hydration, Monitor BP (3) Syncopal episodes Status: Acute Plan: IV Hydration, Monitor BS. Monitor for potential seizure activity.
[2018-06-07] MEDS: NS 1000 ML 1,000 ML IV SCH (04:40)
[2018-06-07 05:06] LABS: BASOPHILS # (AUTO) 0.1 X10^3/uL (0.0-0.1); BASOPHILS % (AUTO) 1.7 % (0.2-1.0); EOSINOPHILS # (AUTO) 0.1 x10^3/uL (0.0-0.2); EOSINOPHILS % (AUTO) 2.8 % (0.9-2.9); HEMATOCRIT 30.7 % (36.0-47.0); HEMOGLOBIN 10.4 g/dL (12.0-16.0); LYMPHOCYTES # (AUTO) 1.2 X10^3/uL (1.3-2.9); LYMPHOCYTES % (AUTO) 40.7 % (21.0-51.0); MEAN CORPUSCULAR HEMOGLOBIN 28.1 pg (27.0-34.0); MEAN CORPUSCULAR HGB CONC 33.9 g/dL (33.0-35.0); MEAN CORPUSCULAR VOLUME 82.9 fL (80.0-100.0); MEAN PLATELET VOLUME 7.9 fL (7.4-11.0); MONOCYTES # (AUTO) 0.3 x10^3/uL (0.3-0.8); MONOCYTES % (AUTO) 9.4 % (0.0-13.0); NEUTROPHILS # (AUTO) 1.4 x10^3/uL (2.2-4.8); NEUTROPHILS % (AUTO) 45.4 % (42.0-75.0); PLATELET COUNT 234 X10^3/uL (150.0-450.0); RED CELL DISTRIBUTION WIDTH 12.9 % (11.6-16.5); WHITE BLOOD COUNT 3.1 X10^3/uL (3.6-10.0)
[2018-06-07 05:24] LABS: ALANINE AMINOTRANSFERASE 29 Units/L (12-78); ALKALINE PHOSPHATASE 152 Units/L (46-116); ASPARTATE AMINO TRANSFERASE 59 Units/L (15-37); BLOOD UREA NITROGEN 11 mg/dL (7-18); CALCIUM 8.2 mg/dL (8.5-10.1); CARBON DIOXIDE 22.1 mmol/L (21-32); CHLORIDE 99 mmol/L (98-107); COR NA(FOR HYPERGLY) 142 mmol/L (136-145); CREATININE 0.78 mg/dL (0.55-1.02); SODIUM 133 mmol/L (136-145); TOTAL PROTEIN 7.4 g/dL (6.4-8.2); eGFR NON BLACK RACES > 60 (>60)
[2018-06-07] MEDS: LIPASE PROTEASE AMYLASE PO SCH (05:31)
[2018-06-07] MEDS ORDERED: POTASSIUM CHLORIDE LIQ 20 MEQ UDC PO PRN (05:41)
[2018-06-07] MEDS ORDERED: POTASSIUM CHL 60 MEQ/NS 0.45% 500 ML IV PRN (05:41)
[2018-06-07] MEDS ORDERED: K-LYTE EFFERVESCENT PO PRN (05:41)
[2018-06-07] MEDS ORDERED: POTASSIUM CHL 40 MEQ/NS 0.45% 500 ML IV PRN (05:41)
[2018-06-07] MEDS ORDERED: K-RIDER 10 MEQ/NS 100 ML 10 MEQ/100 ML BAG IV PRN (05:41)
[2018-06-07] MEDS: NEURONTIN TAB 600 MG PO SCH (06:00)
[2018-06-07] MEDS: HumuLIN R SC PRN (06:02)
[2018-06-07] MEDS: IMURAN PO SCH (09:01)
[2018-06-07] MEDS: MAGNESIUM SULFATE 1 GRAM/100 mL PREMIX 1 GM/100 ML BAG IV PRN (09:02)
[2018-06-07] MEDS: FLORINEF PO SCH (09:04)
[2018-06-07] MEDS: SYNTHROID 100 mcg TAB PO SCH (09:07)
[2018-06-07] MEDS: GEODON PO SCH (09:07)
[2018-06-07] MEDS: PROTONIX TAB 40 MG PO SCH (09:08)
[2018-06-07] MEDS: ATARAX TAB 25 MG PO SCH (09:08)
[2018-06-07] MEDS: VIBRAMYCIN PO SCH (09:08)
[2018-06-07] MEDS: PAXIL PO SCH (09:08)
[2018-06-07] MEDS: LUBIPROSTONE 24 MCG PO SCH (09:10)
[2018-06-07] MEDS: LIOTHYRONINE SODIUM 5 MCG PO SCH (09:10)
[2018-06-07 10:32] VITALS: BP 141/88
[2018-06-07] MEDS ORDERED: CREON PO SCH (12:00)
[2018-06-08] MEDS ORDERED: LINZESS PO SCH (09:00)
--- NOTE | 2018-06-11 00:40 | PCM.DCPLAN ---
Discharge Summary - Admission Date Date of Admission: 06/05/18 - Discharge Date Discharge Date: 06/07/18 - Admission Diagnoses (1) Open wound Status: Acute (2) DKA (diabetic ketoacidoses) Status: Acute (3) Hypotensive episode Status: Acute (4) Syncopal episodes Status: Acute - Discharge Diagnoses Discharge Diagnosis: same as admission diagnosis - Discharge Medications Discharge Medications: Home Medication List lubiprostone 24 mcg PO BID 06/05/18 [History] ondansetron [Zofran ODT] 4 mg PO Q6H PRN 06/05/18 [History] Prescriptions: - Hospital Course Vital Signs: Temperature 98.8 F Pulse Rate [Left Brachial] 124 Pulse Rate 131 Respiratory Rate 20 Blood Pressure [Right Arm] 141/88 Blood Pressure 79/56 O2 Sat by Pulse Oximetry 100 Latest Lab Results: Laboratory Last Values WBC 3.1 X10^3/uL (3.6-10.0) L 06/07/18 04:45 RBC 3.70 X10^6/uL (3.5-5.4) 06/07/18 04:45 Hgb 10.4 g/dL (12.0-16.0) L 06/07/18 04:45 Hct 30.7 % (36.0-47.0) L 06/07/18 04:45 MCV 82.9 fL (80.0-100.0) 06/07/18 04:45 MCH 28.1 pg (27.0-34.0) 06/07/18 04:45 MCHC 33.9 g/dL (33.0-35.0) 06/07/18 04:45 RDW 12.9 % (11.6-16.5) 06/07/18 04:45 Plt Count 234 X10^3/uL (150.0-450.0) 06/07/18 04:45 MPV 7.9 fL (7.4-11.0) 06/07/18 04:45 Neut % (Auto) 45.4 % (42.0-75.0) 06/07/18 04:45 Lymph % (Auto) 40.7 % (21.0-51.0) 06/07/18 04:45 [place] % (Auto) 9.4 % (0.0-13.0) 06/07/18 04:45 Eos % (Auto) 2.8 % (0.9-2.9) 06/07/18 04:45 Baso % (Auto) 1.7 % (0.2-1.0) H 06/07/18 04:45 Neut # (Auto) 1.4 x10^3/uL (2.2-4.8) L 06/07/18 04:45 Lymph # (Auto) 1.2 X10^3/uL (1.3-2.9) L 06/07/18 04:45 [place] # (Auto) 0.3 x10^3/uL (0.3-0.8) 06/07/18 04:45 Eos # (Auto) 0.1 x10^3/uL (0.0-0.2) 06/07/18 04:45 Baso # (Auto) 0.1 X10^3/uL (0.0-0.1) 06/07/18 04:45 Absolute Nucleated RBC 0.2 /100WBC 06/07/18 04:45 Sample Site Rra 06/05/18 14:00 ABG pH 7.400 (7.35-7.45) 06/05/18 14:00 ABG pCO2 26.0 mmHg (35.0-45.0) L 06/05/18 14:00 ABG pO2 112.0 mmHg (80.0-100.0) H 06/05/18 14:00 ABG HCO3 16.1 mmol/L (22-26) L* 06/05/18 14:00 ABG O2 Saturation 98.0 % (90-100) 06/05/18 14:00 ABG Base Excess -7.2 mmol/L (-2.0-2.0) L 06/05/18 14:00 Shivam Test Pos 06/05/18 14:00 A-a Gradient 5.0 mmHg 06/05/18 14:00 FiO2 21.000 06/05/18 14:00 Blood Gas Comments Sasha well cs 06/05/18 14:00 Sodium 133 mmol/L (136-145) L 06/07/18 04:45 Corrected Sodium 142 mmol/L (136-145) 06/07/18 04:45 Potassium 3.9 mmol/L (3.5-5.1) 06/07/18 08:30 Chloride 99 mmol/L (98-107) 06/07/18 04:45 Carbon Dioxide 22.1 mmol/L (21-32) 06/07/18 04:45 BUN 11 mg/dL (7-18) 06/07/18 04:45 Creatinine 0.78 mg/dL (0.55-1.02) 06/07/18 04:45 Est GFR (MDRD) Af Amer > 60 (>60) 06/07/18 04:45 Est GFR (MDRD) Non-Af > 60 (>60) 06/07/18 04:45 Glucose 459 mg/dL (65-99) H 06/07/18 04:45 POC Glucose (mg/dL) 347 mg/dL (65-99) H 06/07/18 11:46 Lactic Acid 7.4 mmol/L (0.4-2.0) H 06/05/18 11:35 Calcium 8.2 mg/dL (8.5-10.1) L 06/07/18 04:45 Corrected Calcium 9.0 mg/dL (8.5-10.1) 06/07/18 04:45 Magnesium 1.7 mg/dL (1.7-2.9) 06/07/18 04:50 Total Bilirubin 0.30 mg/dL (0.2-1.0) 06/07/18 04:45 AST 59 Units/L (15-37) H 06/07/18 04:45 ALT 29 Units/L (12-78) 06/07/18 04:45 Alkaline Phosphatase 152 Units/L (46-116) H 06/07/18 04:45 Creatine Kinase 35 Units/L (26-192) 06/06/18 00:18 CK-MB (CK-2) < 1.0 ng/mL (0-4.0) 06/06/18 00:18 CK/CKMB % Calc 2.9 % (<4) 06/06/18 00:18 Troponin I < 0.02 ng/mL (0-1.5) 06/06/18 00:18 C-Reactive Protein 12.40 mg/L (0-3.0) H 06/05/18 11:35 Total Protein 7.4 g/dL (6.4-8.2) 06/07/18 04:45 Albumin 3.0 g/dL (3.4-5.0) L 06/07/18 04:45 Globulin 4.4 g/dL (2.5-4.5) 06/07/18 04:45 Albumin/Globulin Ratio 0.7 Ratio (1.1-2.1) L 06/07/18 04:45 Amylase 42 Units/L (25-115) 06/05/18 11:35 Lipase 330 Units/L (73-393) 06/05/18 11:35 Specimen Type Clean catch urine 06/06/18 04:27 Urine Color Straw (YELLOW) 06/06/18 04:27 Urine Appearance Clear (CLEAR) 06/06/18 04:27 Urine pH 5.0 (5.0 - 8.0) 06/06/18 04:27 Ur Specific [place] 1.005 (1.000-1.030) 06/06/18 04:27 Urine Protein 2+ (NEGATIVE) 06/06/18 04:27 Urine Glucose (UA) 4+ (NEGATIVE) 06/06/18 04:27 Urine Ketones 2+ (NEGATIVE) 06/06/18 04:27 Urine Occult Blood 2+ (NEGATIVE) 06/06/18 04:27 Urine Nitrite Negative (NEGATIVE) 06/06/18 04:27 Urine Bilirubin Negative (NEGATIVE) 06/06/18 04:27 Urine Urobilinogen Normal (NORMAL) 06/06/18 04:27 Ur Leukocyte Esterase Negative (NEGATIVE) 06/06/18 04:27 Urine RBC 3-5 /HPF (NONE SEEN) 06/06/18 04:27 Urine WBC None seen /HPF (NONE SEEN) 06/06/18 04:27 Ur Squamous Epith Cells Moderate /HPF (NEGATIVE) 06/06/18 04:27 Urine Bacteria Negative /HPF (NEGATIVE) 06/06/18 04:27 Urine Yeast Few /HPF (NEGATIVE) 06/06/18 04:27 Ur Culture Indicated? No/not indicated 06/06/18 04:27 Acetone, Semi-Quant Small (NEGATIVE) H 06/06/18 07:54 Hospital Course: Patient admitted after hypotensive episode. BP remained stable with hydration. Serum acetone was small. Patient states she stays hydrated by drinking a gallon of water per day and 8-10 Poweraids. Patient states wounds to left foot are from her walking boot. Patient states she has a team of doctors taking care of her in [place]. Vital signs and labs did improve. patient felt stable for discharge and was discharged home to be followed in op setting. - Discharge Plan Disposition: HOME, SELF-CARE Condition: Stable - Follow ups/Referrals Follow ups/Referrals: Speedy ROSS [Primary Care Provider] - 3 days SARAH CONDE [STAFF PHYSICIAN] - 1 WEEK - Instructions Instructions: Orthostatic Hypotension, Hypotension, [id number], Diabetes Mellitus and Sick Day Management, Near-Syncope, [id number], Dehydration, Adult , [id number] Forms: Patient Portal
[2018-07-05] MEDS ORDERED: VITAMIN B-12 INJ IM SCH (09:00)
== END 2018-06-07 11:50 | disposition home or self-care (01) ==
LOC: ER 11:53 → MED/SURG 11:53
PROVIDERS: ADMIT Internal Medicine; ATTEND Internal Medicine
DX: E11.65 Type 2 diabetes mellitus with hyperglycemia; F41.8 Other specified anxiety disorders; S90.822A Blister (nonthermal), left foot, initial encounter; Z79.4 Long term (current) use of insulin; E11.10 Type 2 diabetes mellitus with ketoacidosis without coma; R06.02 Shortness of breath; I95.89 Other hypotension; X58.XXXA Exposure to other specified factors, initial encounter; R55 Syncope and collapse; F31.9 Bipolar disorder, unspecified; Y92.89 Other specified places as the place of occurrence of the external cause; R94.31 Abnormal electrocardiogram [ECG] [EKG]; E03.8 Other specified hypothyroidism; B95.1 Streptococcus, group B, as the cause of diseases classified elsewhere
CPT/HCPCS: 36415; 36600; 80053; 81001; 82009; 82150; 82550; 82553; 82803; 82947; 83605; 83690; 83735; 84132; 84484; 85025; 86140; 87040; 87070; 87075; 87077; 87186; 87205; 93005; 93010; 94760; 96365; 96367; 99282; 99284; A4222; G0378; J1815; J3475; J3480; J7030; J7500; J8499

== ENCOUNTER 2018-07-09 23:35 | Inpatient (IN) ==
[2018-07-09 23:45] VITALS: BMI 24.7
--- NOTE | 2018-07-10 01:40 | DR.EXTPAIN ---
HPI Time seen Time seen: 02:35 PCP Primary Care Physician: samy HPI Comment HPI Comment: CHRONIC FOOT ULCER AND CELLULITIS THAT IS WORSE TODAY. WEAK BUT NO FEVER. GLUCOSE STAYING NORMAL BUT ELEVATED PAST FEW DAYS. PATIENT IS A DIABETIC. Complaint/Symptoms Chief Complaint Doctor Comments: CELLULITIS LEFT FOOT THAT HAVE NECROTIC TISSUE AND IS DRAINING. Chief Complaint:: pt states" I had a blister on my lt heel and i cut the skin off and my Mom wants me to get it checked out" Source History Provided: Patient Mode of arrival Mode of Arrival: Ambulatory Timing Onset of Chief Complaint: 07/08/18 Context History of: None Associated signs and symptoms Associated Signs and Symptoms: Weakness, Pain and Swelling PMH PMH Past Medical History: Yes Past Medical History: Anxiety, CHF, Diabetes, Migraines, GERD, Hypothyroidism and Liver Disease Past Medical History Comment: pancreatitis Past Surgical History: Yes Surgical History: Appendectomy, Cholecystectomy and Ortho Surgery Family History History of Family Medical Conditions: Yes Family Medical History: Diabetes Mellitus, Cancer, Heart Failure and Hypertension Social History Does any household member use tobacco: No Alcohol Use: None Do you use any recreational Drugs:: No Lives With: Family Lives Where: Home infectious screening In the last 2 months have you had wt loss of >10#?: NO Have you had fever, night sweats or hemotysis?: No Have you traveled outside the country in the last 6 months?: No Isolation: Standard ROS Review of Systems Constitutional: No Symptoms Reported, Weakness and Fatigue Eyes: No Symptoms Reported ENTM: No Symptoms Reported Respiratoy: No Symptoms Reported Cardiovascular: No Symptoms Reported Gastrointestinal/Abdominal: No Symptoms Reported Genitourinary: No Symptoms Reported Neurological: No Symptoms Reported Musculoskeletal: Left and Foot Integumentary: Change in Color and Wound Endocrine: Increased Thirst and Increased Urine; negative Flushing Psychiatric: No Symptoms Reported All Other Systems: Reviewed and Negative PE Vital Signs Vitals: Temperature 98.1 F Pulse Rate 124 Respiratory Rate 16 Blood Pressure [Right Arm] 141/88 Blood Pressure 123/84 O2 Sat by Pulse Oximetry 99 General Limitations: No Limitations General Appearance: Alert and In No Apparent Distress Head Head Exam: Normal Inspection, Atraumatic and Normocephalic Eyes Eye exam: Normal Appearance, PERRL and EOMI; negative Scleral Icterus and Conjunctival Injection ENT ENT Exam: Normal Exam, Normal Oropharynx, Normal External Ear Exam and TM's Normal Bilaterally Neck Neck Exam: Normal Inspection and Trachea Midline Chest Chest Inspection: Normal Inspection and Symmetric Chest Wall Rise Respiratory Respiratory Exam: Normal Lung Sounds Bilat Respiratory Exam: Bilateral: Rhonchi and Lower: Rhonchi Cardiovascular Cardiovascular Exam: Regular Rate, Tachycardia and Systolic Murmur Abdominal Exam Abdominal Exam: Normal Inspection, Normal Bowel Sounds and Soft; negative Tenderness Extremities Extremities Exam: Tenderness (CELLULITIS LT FOOT) Lower Extremities Gait Exam: Observed & Limited by Pain Back Back Exam: Normal Inspection Neurological Neurological Exam: Alert, Oriented X3 and CN II-XII Intact Skin Skin Exam: Erythema Type of Lesion: Abscess Distribution: LLE MDM Differential Diagnosis Differential Diagnosis: Other (CELLULITIS LEFT FOOT, OSTEOMYELITIS LT FOOT.) COURSE Treatment Treatment: SEE ORDERS. Consultation Consultation Comments: DISCUSS PATIENT WITH DR. CONDE. HE WILL ADMIT PATIENT. Education/Counseling Education/Counseling: Family and Education Educated On: Diagnosis ROR Labs Reviewed Laboratory Results Reviewed?: Yes Result Diagrams: 07/10/18 02:22 07/10/18 02:22 Laboratory: 07/10/18 02:01 Foot - Left Gram Stain - Final WBC 5.7 X10^3/uL (3.6-10.0) 07/10/18 02:22 RBC 3.43 X10^6/uL (3.5-5.4) L 07/10/18 02:22 Hgb 9.8 g/dL (12.0-16.0) L 07/10/18 02:22 Hct 28.2 % (36.0-47.0) L 07/10/18 02:22 MCV 82.0 fL (80.0-100.0) 07/10/18 02:22 MCH 28.5 pg (27.0-34.0) 07/10/18 02:22 MCHC 34.7 g/dL (33.0-35.0) 07/10/18 02:22 RDW 12.9 % (11.6-16.5) 07/10/18 02:22 Plt Count 332 X10^3/uL (150.0-450.0) 07/10/18 02:22 MPV 7.7 fL (7.4-11.0) 07/10/18 02:22 Neut % (Auto) 54.2 % (42.0-75.0) 07/10/18 02:22 Lymph % (Auto) 31.2 % (21.0-51.0) 07/10/18 02:22 [place] % (Auto) 11.5 % (0.0-13.0) 07/10/18 02:22 Eos % (Auto) 2.0 % (0.9-2.9) 07/10/18 02:22 Baso % (Auto) 1.1 % (0.2-1.0) H 07/10/18 02:22 Neut # (Auto) 3.1 x10^3/uL (2.2-4.8) 07/10/18 02:22 Lymph # (Auto) 1.8 X10^3/uL (1.3-2.9) 07/10/18 02:22 [place] # (Auto) 0.7 x10^3/uL (0.3-0.8) 07/10/18 02:22 Eos # (Auto) 0.1 x10^3/uL (0.0-0.2) 07/10/18 02:22 Baso # (Auto) 0.1 X10^3/uL (0.0-0.1) 07/10/18 02:22 Absolute Nucleated RBC 0.0 /100WBC 07/10/18 02:22 Sodium 133 mmol/L (136-145) L 07/10/18 02:22 Corrected Sodium TNP 07/10/18 02:22 Potassium 4.0 mmol/L (3.5-5.1) 07/10/18 02:22 Chloride 100 mmol/L (98-107) 07/10/18 02:22 Carbon Dioxide 25.3 mmol/L (21-32) 07/10/18 02:22 BUN 33 mg/dL (7-18) H 07/10/18 02:22 Creatinine 0.81 mg/dL (0.55-1.02) 07/10/18 02:22 Est GFR (MDRD) Af Amer > 60 (>60) 07/10/18 02:22 Est GFR (MDRD) Non-Af > 60 (>60) 07/10/18 02:22 Glucose 94 mg/dL (65-99) 07/10/18 02:22 Lactic Acid 2.5 mmol/L (0.4-2.0) H 07/10/18 02:22 Calcium 8.7 mg/dL (8.5-10.1) 07/10/18 02:22 Corrected Calcium 9.7 mg/dL (8.5-10.1) 07/10/18 02:22 Total Bilirubin 0.10 mg/dL (0.2-1.0) L 07/10/18 02:22 AST 13 Units/L (15-37) L 07/10/18 02:22 ALT 24 Units/L (12-78) 07/10/18 02:22 Alkaline Phosphatase 193 Units/L (46-116) H 07/10/18 02:22 C-Reactive Protein 13.70 mg/L (0-3.0) H 07/10/18 02:22 Total Protein 7.3 g/dL (6.4-8.2) 07/10/18 02:22 Albumin 2.7 g/dL (3.4-5.0) L 07/10/18 02:22 Globulin 4.6 g/dL (2.5-4.5) H 07/10/18 02:22 Albumin/Globulin Ratio 0.6 Ratio (1.1-2.1) L 07/10/18 02:22 XRAY XRAY Interpreted by: Radiologist XRAY Findings: REPORT DISCUSS WITH PATIENT AND MOTHER.
--- NOTE | 2018-07-10 02:27 | RAD ---
Left foot, three views Indication: Heel pain, wound Comparison: 05/31/2018 Findings: There is worsened dorsal foot soft tissue swelling. There is progressed marked osteolysis o f the great toe proximal phalanx with associated foreshortening of the toe and diffuse swelling. No s oft tissue gas identified. There is ulceration along the plantar aspect of the posterior foot overlying the calcaneus. No signif icant erosive change of the calcaneus is observed. There is unchanged appearance of the displaced osseous fragment in the posterior ankle, compatible wi th prior avulsion injury. There is adjacent soft tissue swelling. Impression: Progressed osteomyelitis of the great toe proximal phalanx with surrounding cellulitis. Septic arthri tis cannot be excluded. There is worsened dorsal foot swelling, suggesting cellulitis. Consider MRI o f the foot with contrast for further evaluation. Posterior plantar foot ulcer, without evidence for calcaneal osteomyelitis. Reported By:
[2018-07-10 02:35] LABS: BASOPHILS # (AUTO) 0.1 X10^3/uL (0.0-0.1); BASOPHILS % (AUTO) 1.1 % (0.2-1.0); EOSINOPHILS # (AUTO) 0.1 x10^3/uL (0.0-0.2); HEMATOCRIT 28.2 % (36.0-47.0); HEMOGLOBIN 9.8 g/dL (12.0-16.0); LYMPHOCYTES # (AUTO) 1.8 X10^3/uL (1.3-2.9); LYMPHOCYTES % (AUTO) 31.2 % (21.0-51.0); MEAN CORPUSCULAR HEMOGLOBIN 28.5 pg (27.0-34.0); MEAN CORPUSCULAR HGB CONC 34.7 g/dL (33.0-35.0); MEAN PLATELET VOLUME 7.7 fL (7.4-11.0); MONOCYTES # (AUTO) 0.7 x10^3/uL (0.3-0.8); MONOCYTES % (AUTO) 11.5 % (0.0-13.0); NEUTROPHILS # (AUTO) 3.1 x10^3/uL (2.2-4.8); NEUTROPHILS % (AUTO) 54.2 % (42.0-75.0); PLATELET COUNT 332 X10^3/uL (150.0-450.0); RED BLOOD COUNT 3.43 X10^6/uL (3.5-5.4); RED CELL DISTRIBUTION WIDTH 12.9 % (11.6-16.5); WHITE BLOOD COUNT 5.7 X10^3/uL (3.6-10.0)
[2018-07-10 02:49] LABS: ALANINE AMINOTRANSFERASE 24 Units/L (12-78); ALBUMIN 2.7 g/dL (3.4-5.0); ALKALINE PHOSPHATASE 193 Units/L (46-116); ASPARTATE AMINO TRANSFERASE 13 Units/L (15-37); BLOOD UREA NITROGEN 33 mg/dL (7-18); CALCIUM 8.7 mg/dL (8.5-10.1); CARBON DIOXIDE 25.3 mmol/L (21-32); CHLORIDE 100 mmol/L (98-107); COR CA(FOR HYPOALB) 9.7 mg/dL (8.5-10.1); CREATININE 0.81 mg/dL (0.55-1.02); SODIUM 133 mmol/L (136-145); TOTAL PROTEIN 7.3 g/dL (6.4-8.2); eGFR NON BLACK RACES > 60 (>60)
[2018-07-10 02:59] LABS: LACTIC ACID 2.5 mmol/L (0.4-2.0)
[2018-07-10] MEDS ORDERED: MORPHINE SULFATE INJ 4 MG IVP PRN (05:24)
[2018-07-10] MEDS ORDERED: ZOFRAN SYRUP 4 MG UDC PO PRN (05:24)
[2018-07-10] MEDS ORDERED: MORPHINE SULFATE INJ 4 MG ONE (05:37)
[2018-07-10] MEDS ORDERED: ZOFRAN INJ 4 MG VIAL IVP PRN (05:42)
[2018-07-10] MEDS ORDERED: DEMEROL INJ ONE (07:18)
[2018-07-10] MEDS: DEMEROL INJ IVP PRN ×5 (07:21→23:04)
[2018-07-10] MEDS: NS 1000 ML 1,000 ML IV SCH ×2 (09:00→16:27)
[2018-07-10] MEDS: PHENERGAN TAB 25 MG PO PRN ×2 (13:00→19:23)
[2018-07-10 13:59] LABS: ABG BASE EXCESS -7.2 mmol/L (-2.0-2.0)
[2018-07-10] MEDS ORDERED: FORTAZ or TAZICEF VIAL INJ 1 G in NS 100 ML IV + SPIKE MINIBAG* 100 ML IV SCH (14:00)
[2018-07-10 14:01] LABS: ABG HCO3 16.6 mmol/L (22-26)
[2018-07-10] MEDS ORDERED: NS 100 ML IV 100 ML IV ONE (14:06)
[2018-07-10] MEDS ORDERED: HumuLIN R ONE (14:08)
[2018-07-10] MEDS: ZOSYN VIAL 3.375 GRAMS 3.375 G in NS 100 ML IV + SPIKE MINIBAG* 100 ML IV SCH ×2 (15:27→21:04)
[2018-07-10 15:57] LABS: BASOPHILS # (AUTO) 0.1 X10^3/uL (0.0-0.1); BASOPHILS % (AUTO) 0.9 % (0.2-1.0); EOSINOPHILS % (AUTO) 0.4 % (0.9-2.9); HEMATOCRIT 34.2 % (36.0-47.0); LYMPHOCYTES # (AUTO) 1.1 X10^3/uL (1.3-2.9); LYMPHOCYTES % (AUTO) 13.9 % (21.0-51.0); MEAN CORPUSCULAR HEMOGLOBIN 27.8 pg (27.0-34.0); MEAN CORPUSCULAR HGB CONC 32.1 g/dL (33.0-35.0); MEAN CORPUSCULAR VOLUME 86.7 fL (80.0-100.0); MEAN PLATELET VOLUME 8.5 fL (7.4-11.0); MONOCYTES # (AUTO) 0.5 x10^3/uL (0.3-0.8); MONOCYTES % (AUTO) 6.6 % (0.0-13.0); NEUTROPHILS % (AUTO) 78.2 % (42.0-75.0); PLATELET COUNT 341 X10^3/uL (150.0-450.0); RED BLOOD COUNT 3.94 X10^6/uL (3.5-5.4); RED CELL DISTRIBUTION WIDTH 13.3 % (11.6-16.5); WHITE BLOOD COUNT 7.6 X10^3/uL (3.6-10.0)
[2018-07-10 16:06] LABS: BLOOD UREA NITROGEN 24 mg/dL (7-18); CALCIUM 9.1 mg/dL (8.5-10.1); CHLORIDE 85 mmol/L (98-107); CREATININE 1.08 mg/dL (0.55-1.02); eGFR NON BLACK RACES > 60 (>60)
[2018-07-10 16:09] LABS: SODIUM 119 mmol/L (136-145)
[2018-07-10 16:10] LABS: COR NA(FOR HYPERGLY) 134 mmol/L (136-145)
[2018-07-10] MEDS: NS 500 ML IV 500 ML IV SCH (16:18)
[2018-07-10] MEDS: VANCOMYCIN HCL 1 GM VIAL 1 G in NS 250 ML IV 250 ML IV SCH (16:19)
--- NOTE | 2018-07-10 17:56 | DR.H&P ---
H&P - History & Physical for Day of: H&P Date: 07/10/18 - Chief Complaint Chief Complaint: CHRONIC FOOT ULCER AND CELLULITIS THAT IS WORSE TODAY. WEAK BUT NO FEVER. GLUCOSE STAYING NORMAL BUT ELEVATED PAST FEW DAYS - History of Present Illness History of Present Illness: 27 WF ER ADMISSION WITH CO CHRONIC LEFT FOOT ULCER WORSE, FELT SOMETHING POP. PT HAS PMH OF DM ON INSULIN THERAPY. STATES BS HAS BEEN ELEVATED LAST DAY OR SO. PT DENIES ANY N/V/D OR FEVER. PT STATES SHE HAS BEEN TOLD SHE HAS OSTEOMYELITIS IN L FOOT, UNDER THE CARE OF INFECTIOUS DISEASE IN [place]. PT HAD XRAY REVEALING FINDINGS CONSITENT WITH OSTEOMYELITIS IN ER. ADMITTED FOR IV ATBX, SURGICAL EVALUATION FOR POSSIBLE DEBRIDEMENT. - Past Medical History Past Medical History: Diabetes, Liver Disease, Anxiety, Hypothyroidism, GERD, Migraines, CHF Additional Medical History: Hypotension, Auto Immune Pancreatitis, Bipolar Disorder, Deaf (L) Ear, Polycystic ovarian disease, Gall bladder disease, Pancreatitis, Crohn's disease, Constipation, Hormone disorder - Past Surgical History Surgical History: Appendectomy, Cholecystectomy, Ortho Surgery Additional Surgical History: Port-a-cath placement - Family History Family Medical History: Diabetes Mellitus, Coronary Artery Disease, Heart Failure - Social History Does patient currently use any type of tobacco product: No Have you used tobacco products in the last 12 months: No Type of Tobacco Use: None Does any household member use tobacco: No Alcohol Use: None Drug Use: None - Medications Home Medications: acetaminophen [From Tylenol] Allergy (Verified 06/05/18 11:41) metoclopramide [From Reglan] Allergy (Verified 06/05/18 11:41) TAPE ADHESIVE Allergy (Uncoded 06/05/18 11:41) CONTINUE taking the following medications lubiprostone [Amitiza] 24 mcg PO BID 07/10/18 [History] - Review of Systems Constitutional: Weakness Eyes: No Symptoms Reported ENT: No Symptoms Reported Respiratory: No Symptoms Reported Cardiovascular: No Symptoms Reported, Edema Gastrointestinal: Nausea Genitourinary: No Symptoms Reported Musculoskeletal: Leg Pain, Foot Pain Skin: Wound Neurological: Weakness. denies: Confusion - Physical Exam Vital Signs: Temperature 99.0 F Pulse Rate [Apical] 116 Pulse Rate [Right Brachial] 121 Pulse Rate 124 Respiratory Rate 18 Blood Pressure [Right Arm] 115/69 Blood Pressure 123/84 O2 Sat by Pulse Oximetry 100 Oriented: Normal Eyes: Normal Ear: Normal Throat: Normal Respiratory: Clear Throughout Cardiovascular: Normal, Edema (+1LLE) : Normal Auscultation: Bowel Sounds: Normal Palpation: Normal Tenderness: Normal Skin: Wound (LEFT HEEL, LOCALIZED REDNESS, OPEN WOUND WITH FOUL D/C, TENDER TO TOUCH, SURROUNDED BY THICK CALLOUS FORMATION) Musculoskeletal: Left, Leg, Ankle, Foot, Swelling Psychiatric: Anxiety, Agitation Mood Description: Angry Affect: Angry, Anxious Speech Pattern: Excessive - Assessment/Plan (1) Cellulitis of left leg Status: Acute Plan: OPEN WOUND TO LEFT FOOT,. WOUND CULTURES AND IV ATBX. SURGICAL CONSULT, BLOOD SUGAR CONTROL, SSI, VERIFY HOME MEDS. PAIN AND NAUSEA CONTROL. DIABETIC DIET, ADMISSION LABS AND REPEAT AM CBC CMP. BLOOD CULTURES ON ADMISSION, OBTAIN LAST NUCLEAR BONE SCAN REPORT- PT STATES HAD ONE ABOUT ONE MONTH AGO. HYDRATION (2) Osteomyelitis Qualifiers: Osteomyelitis type: unspecified type Status: Acute (3) Autoimmune pancreatitis Status: Acute (4) Bipolar 1 disorder Status: Chronic (5) Diabetes Status: Chronic Plan: SSI, VERIFY HOME MEDS. URINE ACETONE (6) Hypothyroid Status: Chronic - Allergies Allergies/Adverse Reactions: Allergies Allergy/AdvReac Type Severity Reaction Status Date / Time acetaminophen [From Tylenol] Allergy Verified 06/05/18 11:41 metoclopramide [From Reglan] Allergy Verified 06/05/18 11:41 TAPE ADHESIVE Allergy Uncoded 06/05/18 11:41
[2018-07-10] MEDS: PROTONIX TAB 40 MG PO SCH (19:59)
[2018-07-10] MEDS: PAXIL PO SCH (19:59)
[2018-07-10] MEDS: VISTARIL PO PRN (19:59)
[2018-07-10] MEDS: SNACK - Diabetic Appropriate PO SCH (20:03)
[2018-07-10] MEDS: NEURONTIN TAB 600 MG PO SCH (21:04)
[2018-07-11] MEDS: NS 1000 ML 1,000 ML IV SCH ×3 (00:42→19:16)
[2018-07-11] MEDS: DEMEROL INJ IVP PRN ×6 (03:01→23:12)
[2018-07-11] MEDS: VISTARIL PO PRN (04:28)
[2018-07-11] MEDS: ZOSYN VIAL 3.375 GRAMS 3.375 G in NS 100 ML IV + SPIKE MINIBAG* 100 ML IV SCH ×3 (05:12→22:13)
[2018-07-11] MEDS: NEURONTIN TAB 600 MG PO SCH ×3 (05:12→22:14)
[2018-07-11] MEDS: OTBS NS XX SCH ×10 (06:06→16:32)
[2018-07-11 06:09] LABS: ABG ALLEN TEST POS; ABG BASE EXCESS -1.9 mmol/L (-2.0-2.0); ABG HCO3 22.2 mmol/L (22-26)
[2018-07-11] MEDS ORDERED: LIPASE PROTEASE AMYLASE PO SCH (06:30)
[2018-07-11 07:07] LABS: BASOPHILS # (AUTO) 0.1 X10^3/uL (0.0-0.1); BASOPHILS % (AUTO) 1.7 % (0.2-1.0); EOSINOPHILS # (AUTO) 0.1 x10^3/uL (0.0-0.2); EOSINOPHILS % (AUTO) 2.5 % (0.9-2.9); HEMATOCRIT 27.7 % (36.0-47.0); HEMOGLOBIN 9.6 g/dL (12.0-16.0); LYMPHOCYTES # (AUTO) 1.3 X10^3/uL (1.3-2.9); LYMPHOCYTES % (AUTO) 29.9 % (21.0-51.0); MEAN CORPUSCULAR HEMOGLOBIN 28.6 pg (27.0-34.0); MEAN CORPUSCULAR HGB CONC 34.6 g/dL (33.0-35.0); MEAN CORPUSCULAR VOLUME 82.7 fL (80.0-100.0); MEAN PLATELET VOLUME 8.1 fL (7.4-11.0); MONOCYTES # (AUTO) 0.4 x10^3/uL (0.3-0.8); MONOCYTES % (AUTO) 10.4 % (0.0-13.0); NEUTROPHILS # (AUTO) 2.3 x10^3/uL (2.2-4.8); NEUTROPHILS % (AUTO) 55.5 % (42.0-75.0); PLATELET COUNT 281 X10^3/uL (150.0-450.0); RED BLOOD COUNT 3.35 X10^6/uL (3.5-5.4); RED CELL DISTRIBUTION WIDTH 13.6 % (11.6-16.5); WHITE BLOOD COUNT 4.2 X10^3/uL (3.6-10.0)
[2018-07-11 07:16] LABS: ALANINE AMINOTRANSFERASE 24 Units/L (12-78); ALBUMIN 2.5 g/dL (3.4-5.0); ALKALINE PHOSPHATASE 186 Units/L (46-116); ASPARTATE AMINO TRANSFERASE 24 Units/L (15-37); BLOOD UREA NITROGEN 18 mg/dL (7-18); CALCIUM 8.4 mg/dL (8.5-10.1); CARBON DIOXIDE 21.4 mmol/L (21-32); CHLORIDE 97 mmol/L (98-107); COR CA(FOR HYPOALB) 9.6 mg/dL (8.5-10.1); COR NA(FOR HYPERGLY) 133 mmol/L (136-145); CREATININE 0.68 mg/dL (0.55-1.02); SODIUM 128 mmol/L (136-145); eGFR NON BLACK RACES > 60 (>60)
[2018-07-11] MEDS: LIOTHYRONINE SODIUM 5 MCG PO SCH ×2 (08:08→18:01)
[2018-07-11] MEDS: VANCOMYCIN HCL 1 GM VIAL 1 G in NS 250 ML IV 250 ML IV SCH ×2 (08:18→20:10)
[2018-07-11] MEDS: PROTONIX TAB 40 MG PO SCH ×2 (08:18→20:12)
[2018-07-11] MEDS: SYNTHROID 100 mcg TAB PO SCH (08:19)
[2018-07-11] MEDS: PAXIL PO SCH ×2 (08:19→20:12)
[2018-07-11] MEDS: CREON PO SCH ×2 (12:19→16:30)
--- NOTE | 2018-07-11 12:46 | MRI ---
MRI left foot with and without contrast Indication: Open wound to left heel with swelling and previous fracture Comparison: Serial x-rays of the left foot were reviewed Technique: Multiplanar, multi sequence imaging of the left foot before after administration of 14 cc of MultiHance intravenously. Findings: There is essentially complete loss of the normal bone within great toe proximal phalanx, th ere is surrounding mild edema and postcontrast enhancement in this location. There is subtle subchond ral edema and enhancement within the metatarsal head with a small linear tract of increased signal ex tending to the metatarsal head/neck junction of the great toe. The distal phalanx of the great toe de monstrates preservation of signal and lack of enhancement. There is diffuse mild soft tissue swelling also noted within the great toe. The remaining phalanges demonstrate no other significant abnormalit y. There is increasing edema and fluid within the dorsal and lateral aspect of the forefoot however t here is no appreciable enhancement this location to suggest abscess or cellulitis. There is heterogeneous increased STIR, T2 signal and enhancement noted within the medial, lateral cun eiforms cuboid navicular talus along the distal tibia and fibula. None of these locations demonstrate periosteal edema or significant adjacent soft tissue swelling. Lisfranc joint alignment is maintaine d. There is mild degenerative change within the great toe TMT joint. There is chronic avulsed injury of the distal Achilles tendon with approximate 4 cm retraction of the torn distal Achilles tendon. There is no significant fluid collection or hematoma this location cons istent with subacute/chronic tear. Small tibiotalar joint effusion. The anterior posterior talofibula r ligaments are intact. The anterior tibiotalar ligament demonstrates discontinuity seen on axial mariia ge 11 consistent with tear. The deltoid ligamentous complex intact. 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 Impression: 1. Severe osteomyelitis of the great toe proximal phalanx with near complete osteolysis/destruction o f the great toe proximal phalanx. Subtle subchondral bone marrow edema and cystic change within the g reat toe metatarsal head raises the concern for contiguous extension of infection particularly given the linear tract of increased signal within the metatarsal head/neck junction concerning for a subacu te septic arthritis and contiguous extra red of infection. 2. Moderate amount of edema within the dorsal lateral aspect of the forefoot , there is no enhancemen t in this location to suggest abscess formation or cellulitis. 3. Confluent, heterogeneous increased T2 signal and postcontrast enhancement within distal fibula, ti jacob, talus, navicular, cuboid, lateral and medial cuneiforms most likely represents a represents a di suse osteoporosis and/or reflex sympathetic dystrophy. The possibility of hematogenous spread of oste omyelitis is not excluded however felt less likely. Correlation with clinical history, CRP and ESR le vels is recommended. Additionally consider correlation with follow-up contrast-enhanced foot MRI in 6 -12 weeks for further surveillance. 4. 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 5. Tear of the anterior inferior tibiofibular ligament. Reported By:
--- NOTE | 2018-07-11 13:29 | PCM.PROG ---
Progress Note - Progress Note for Day of Date of Exam: 07/11/18 - Subjective Subjective: 27 WF ER ADMISSION EARLY ON 07/10 WITH CHRONIC LEFT FOOT ULCER WITH INCREASED PAIN, REDNESS AND CELLULITIS. PT HAD XRAY REVEALING OSTEOMYELITIS. CULTURES COLLECTED ON ADMISSION AND PT STARTED ON IV VANCOMYCIN. PT'S BLOOD SUGAR WAS >600 PER NURSING STAFF CONFIRMED VIA LAB AND MODERATE ACETONE LEVELS REPORTED. PT WAS MOVED TO ICU AND STARTED ON INSULIN DRIP PER PROTOCOL FOR DKA MANAGEMENT, ABG COLLECTED UPON TRANSFER TO ICU WITH REPEAT ABG NORMAL THIS AM. PT CONTINUES WITH WITH CO LLE SWELLING, PT IS VERY IRRITABLE PER NURSING STAFF AND NOT COMPLIANT WITH PLAN OF CARE. DR TADEO CONSULTING FOR NEED OF POSSIBLE DEBRIDEMENT OF WOUND. PT HAS MRI LLE ORDERED FOR THIS AM. PT DENIES ANY SOB OR CP - Past Medical Family Social History Past Med/Fam/Surg Hx: No changes since H&P Allergies: Allergies acetaminophen [From Tylenol] Allergy (Verified 06/05/18 11:41) metoclopramide [From Reglan] Allergy (Verified 06/05/18 11:41) TAPE ADHESIVE Allergy (Uncoded 06/05/18 11:41) - Review of Systems ROS: No change since H&P - Vital Signs and I&O's Vital Signs: Temperature 98.4 F Pulse Rate [Apical] 116 Pulse Rate [Right Brachial] 121 Pulse Rate 124 Respiratory Rate 23 Blood Pressure [Right Arm] 128/79 Blood Pressure 123/84 O2 Sat by Pulse Oximetry 100 Intake and Output: Intake & Output 07/09/18 07/10/18 07/11/18 07/12/18 11:59 11:59 11:59 11:59 Intake Total 6579 / 6579 Output Total 3950 / 3950 Balance 2629 / 2629 - Physical Exam Oriented: Normal Eyes: Normal Ear: Normal Throat: Normal Respiratory: Normal Cardiovascular: Normal, Edema (+1LLE) : Normal Auscultation: Bowel Sounds: Normal Tenderness: Normal Skin: Wound (LEFT HEEL, LOCALIZED REDNESS, OPEN WOUND WITH FOUL D/C, TENDER TO TOUCH, SURROUNDED BY THICK CALLOUS FORMATION) Musculoskeletal: Left, Leg, Ankle, Foot, Swelling Psychiatric: Anxiety, Agitation Mood Description: Angry Affect: Angry, Anxious Speech Pattern: Clear, Appropriate - Laboratory and Diagnostics Result Diagrams: 07/11/18 06:08 07/11/18 06:08 Labs: 07/10/18 02:01 Foot - Left Gram Stain - Final 07/10/18 02:01 Foot - Left Wound Culture - Preliminary Laboratory WBC 4.2 X10^3/uL (3.6-10.0) 07/11/18 06:08 RBC 3.35 X10^6/uL (3.5-5.4) L 07/11/18 06:08 Hgb 9.6 g/dL (12.0-16.0) L 07/11/18 06:08 Hct 27.7 % (36.0-47.0) L 07/11/18 06:08 MCV 82.7 fL (80.0-100.0) 07/11/18 06:08 MCH 28.6 pg (27.0-34.0) 07/11/18 06:08 MCHC 34.6 g/dL (33.0-35.0) 07/11/18 06:08 RDW 13.6 % (11.6-16.5) 07/11/18 06:08 Plt Count 281 X10^3/uL (150.0-450.0) 07/11/18 06:08 MPV 8.1 fL (7.4-11.0) 07/11/18 06:08 Neut % (Auto) 55.5 % (42.0-75.0) 07/11/18 06:08 Lymph % (Auto) 29.9 % (21.0-51.0) 07/11/18 06:08 [place] % (Auto) 10.4 % (0.0-13.0) 07/11/18 06:08 Eos % (Auto) 2.5 % (0.9-2.9) 07/11/18 06:08 Baso % (Auto) 1.7 % (0.2-1.0) H 07/11/18 06:08 Neut # (Auto) 2.3 x10^3/uL (2.2-4.8) 07/11/18 06:08 Lymph # (Auto) 1.3 X10^3/uL (1.3-2.9) 07/11/18 06:08 [place] # (Auto) 0.4 x10^3/uL (0.3-0.8) 07/11/18 06:08 Eos # (Auto) 0.1 x10^3/uL (0.0-0.2) 07/11/18 06:08 Baso # (Auto) 0.1 X10^3/uL (0.0-0.1) 07/11/18 06:08 Absolute Nucleated RBC 0.0 /100WBC 07/11/18 06:08 Sample Site Right radial 07/11/18 06:00 ABG pH 7.410 (7.35-7.45) 07/11/18 06:00 ABG pCO2 35.0 mmHg (35.0-45.0) 07/11/18 06:00 ABG pO2 98.0 mmHg (80.0-100.0) 07/11/18 06:00 ABG HCO3 22.2 mmol/L (22-26) 07/11/18 06:00 ABG O2 Saturation 98.0 % (90-100) 07/11/18 06:00 ABG Base Excess -1.9 mmol/L (-2.0-2.0) 07/11/18 06:00 Shivam Test Pos 07/11/18 06:00 A-a Gradient 8.0 mmHg 07/11/18 06:00 FiO2 21.000 07/11/18 06:00 Blood Gas Comments Sasha well jts 07/11/18 06:00 Sodium 128 mmol/L (136-145) L 07/11/18 06:08 Corrected Sodium 133 mmol/L (136-145) L 07/11/18 06:08 Potassium 3.8 mmol/L (3.5-5.1) 07/11/18 06:08 Chloride 97 mmol/L (98-107) L 07/11/18 06:08 Carbon Dioxide 21.4 mmol/L (21-32) 07/11/18 06:08 BUN 18 mg/dL (7-18) 07/11/18 06:08 Creatinine 0.68 mg/dL (0.55-1.02) 07/11/18 06:08 Est GFR (MDRD) Af Amer > 60 (>60) 07/11/18 06:08 Est GFR (MDRD) Non-Af > 60 (>60) 07/11/18 06:08 Glucose 309 mg/dL (65-99) H 07/11/18 06:08 POC Glucose (mg/dL) 400 mg/dL (65-99) H 07/11/18 11:51 Hemoglobin A1c 11.0 % 07/10/18 14:50 Lactic Acid 2.5 mmol/L (0.4-2.0) H 07/10/18 02:22 Calcium 8.4 mg/dL (8.5-10.1) L 07/11/18 06:08 Corrected Calcium 9.6 mg/dL (8.5-10.1) 07/11/18 06:08 Total Bilirubin 0.20 mg/dL (0.2-1.0) 07/11/18 06:08 AST 24 Units/L (15-37) 07/11/18 06:08 ALT 24 Units/L (12-78) 07/11/18 06:08 Alkaline Phosphatase 186 Units/L (46-116) H 07/11/18 06:08 C-Reactive Protein 13.70 mg/L (0-3.0) H 07/10/18 02:22 Total Protein 7.0 g/dL (6.4-8.2) 07/11/18 06:08 Albumin 2.5 g/dL (3.4-5.0) L 07/11/18 06:08 Globulin 4.5 g/dL (2.5-4.5) 07/11/18 06:08 Albumin/Globulin Ratio 0.6 Ratio (1.1-2.1) L 07/11/18 06:08 Urine Acetone Large (NEGATIVE) H 07/10/18 16:09 Acetone, Semi-Quant Moderate (NEGATIVE) H 07/11/18 06:08 - Plan (1) Cellulitis of left leg Status: Acute Plan: OPEN WOUND TO LEFT FOOT,. WOUND CULTURES AND IV ATBX. SURGICAL CONSULT, BLOOD SUGAR CONTROL, SSI, INSULIN DRIP PER PROTOCOL REPEAT AM ACETONE. PAIN AND NAUSEA CONTROL. DIABETIC DIET, ADMISSION LABS AND REPEAT AM CBC CMP. BLOOD CULTURES ON ADMISSION, OBTAIN LAST NUCLEAR BONE SCAN REPORT- PT STATES HAD ONE ABOUT ONE MONTH AGO. HYDRATION (2) Osteomyelitis Status: Acute Qualifiers: Osteomyelitis type: unspecified type (3) Autoimmune pancreatitis Status: Acute (4) Bipolar 1 disorder Status: Chronic (5) Diabetes Status: Chronic Plan: SSI, VERIFY HOME MEDS. URINE ACETONE (6) Hypothyroid Status: Chronic (7) DKA (diabetic ketoacidoses) Status: Acute Plan: INSULIN, HYDRATION. ABG Q AM NORMAL, REPEAT FOR INCREASED SOB, CP S/S WORSENING. SERIAL BS, AM CMP. AM ACETONE LEVEL. TREATMENT OF INFECTION
[2018-07-11] MEDS: OTBSDRIP XX SCH ×3 (17:58→22:14)
[2018-07-11] MEDS: SNACK - Diabetic Appropriate PO SCH (20:11)
[2018-07-11] MEDS: NS 500 ML IV 500 ML IV SCH (20:13)
[2018-07-12] MEDS: NS 500 ML IV 500 ML IV SCH (00:05)
[2018-07-12] MEDS: OTBSDRIP XX SCH ×11 (00:07→19:36)
[2018-07-12] MEDS: NS 1000 ML 1,000 ML IV SCH ×3 (02:56→13:43)
[2018-07-12] MEDS: DEMEROL INJ IVP PRN ×5 (02:56→19:10)
[2018-07-12] MEDS: NEURONTIN TAB 600 MG PO SCH ×3 (06:01→21:31)
[2018-07-12] MEDS: CREON PO SCH ×3 (06:03→18:22)
[2018-07-12] MEDS: ZOSYN VIAL 3.375 GRAMS 3.375 G in NS 100 ML IV + SPIKE MINIBAG* 100 ML IV SCH ×3 (06:03→21:32)
[2018-07-12 06:20] LABS: BASOPHILS # (AUTO) 0.1 X10^3/uL (0.0-0.1); BASOPHILS % (AUTO) 1.4 % (0.2-1.0); EOSINOPHILS # (AUTO) 0.1 x10^3/uL (0.0-0.2); EOSINOPHILS % (AUTO) 2.5 % (0.9-2.9); HEMATOCRIT 31.8 % (36.0-47.0); HEMOGLOBIN 10.8 g/dL (12.0-16.0); LYMPHOCYTES # (AUTO) 1.6 X10^3/uL (1.3-2.9); LYMPHOCYTES % (AUTO) 35.3 % (21.0-51.0); MEAN CORPUSCULAR HEMOGLOBIN 28.3 pg (27.0-34.0); MEAN CORPUSCULAR VOLUME 83.2 fL (80.0-100.0); MEAN PLATELET VOLUME 7.9 fL (7.4-11.0); MONOCYTES # (AUTO) 0.4 x10^3/uL (0.3-0.8); MONOCYTES % (AUTO) 8.4 % (0.0-13.0); NEUTROPHILS # (AUTO) 2.3 x10^3/uL (2.2-4.8); NEUTROPHILS % (AUTO) 52.4 % (42.0-75.0); PLATELET COUNT 305 X10^3/uL (150.0-450.0); RED BLOOD COUNT 3.82 X10^6/uL (3.5-5.4); RED CELL DISTRIBUTION WIDTH 13.5 % (11.6-16.5); WHITE BLOOD COUNT 4.4 X10^3/uL (3.6-10.0)
[2018-07-12 06:41] LABS: ALANINE AMINOTRANSFERASE 25 Units/L (12-78); ALBUMIN 2.8 g/dL (3.4-5.0); ALKALINE PHOSPHATASE 191 Units/L (46-116); ASPARTATE AMINO TRANSFERASE 25 Units/L (15-37); BLOOD UREA NITROGEN 14 mg/dL (7-18); CALCIUM 8.7 mg/dL (8.5-10.1); CARBON DIOXIDE 22.4 mmol/L (21-32); CHLORIDE 101 mmol/L (98-107); COR CA(FOR HYPOALB) 9.7 mg/dL (8.5-10.1); COR NA(FOR HYPERGLY) 137 mmol/L (136-145); CREATININE 0.77 mg/dL (0.55-1.02); SODIUM 134 mmol/L (136-145); TOTAL PROTEIN 7.9 g/dL (6.4-8.2); eGFR NON BLACK RACES > 60 (>60)
[2018-07-12 06:58] LABS: SERUM ACETONE NEGATIVE (NEGATIVE)
[2018-07-12] MEDS ORDERED: POTASSIUM CHL 60 MEQ/NS 0.45% 500 ML IV PRN (07:00)
[2018-07-12] MEDS ORDERED: POTASSIUM CHLORIDE LIQ 20 MEQ UDC PO PRN (07:00)
[2018-07-12] MEDS ORDERED: K-RIDER 10 MEQ/NS 100 ML 10 MEQ/100 ML BAG IV PRN (07:00)
[2018-07-12] MEDS ORDERED: K-LYTE EFFERVESCENT PO PRN (07:00)
[2018-07-12] MEDS ORDERED: POTASSIUM CHL 40 MEQ/NS 0.45% 500 ML IV PRN (07:00)
[2018-07-12] MEDS ORDERED: MAGNESIUM SULFATE 1 GRAM/100 mL PREMIX 1 GM/100 ML BAG IV PRN (07:00)
[2018-07-12] MEDS ORDERED: PHARMACY COMMENT IV NR (08:30)
[2018-07-12] MEDS: SYNTHROID 100 mcg TAB PO SCH (08:34)
[2018-07-12] MEDS: PAXIL PO SCH ×2 (08:34→21:30)
[2018-07-12] MEDS: PROTONIX TAB 40 MG PO SCH ×2 (08:35→21:30)
[2018-07-12] MEDS: LIOTHYRONINE SODIUM 5 MCG PO SCH (08:37)
[2018-07-12 09:36] LABS: CREATININE 0.99 mg/dL (0.55-1.02); VANCOMYCIN,TROUGH 4.6 ug/mL (15-20)
[2018-07-12] MEDS: VANCOMYCIN HCL 1 GM VIAL 1 G in NS 250 ML IV 250 ML IV SCH ×3 (10:13→21:31)
[2018-07-12] MEDS ORDERED: ZESTRIL TAB 5 MG PO SCH (11:15)
[2018-07-12] MEDS: HumuLIN R SUBCUT PRN (11:45)
--- NOTE | 2018-07-12 13:16 | PCM.PROG ---
Progress Note - Progress Note for Day of Date of Exam: 07/12/18 - Subjective Subjective: 27 WF ER ADMISSION EARLY ON 07/10 WITH CHRONIC LEFT FOOT ULCER WITH INCREASED PAIN, REDNESS AND CELLULITIS. PT HAD XRAY REVEALING OSTEOMYELITIS. CULTURES COLLECTED ON ADMISSION AND PT STARTED ON IV VANCOMYCIN. PT MOVED TO ICU FOLLOWING ONSET OF DKA, PT BLOOD SUGARS STABLE THIS AM 100'S, PT SERUM ACETONE NEGATIVE. D/C INSULIN DRIP RESTARTED LANTUS AND SSI. MRI REPORT REVEALED SEVERE OSTEOLYELITIS AND ACHILLES TENDON RUPTURE. PT HAS BEEN UNDER THE CARE OF DR NIELSON, ORTHO SURGEON IN [place] AND TAKING DOXYCYLCINE X 8MOS FOR "INFECTION" CONTINUES TO CO LLE EDEMA, PT REFUSING TO ELEVATED LLE. PT DENIES ANY SOB OR CP - Past Medical Family Social History Past Med/Fam/Surg Hx: No changes since H&P Allergies: Allergies acetaminophen [From Tylenol] Allergy (Verified 06/05/18 11:41) metoclopramide [From Reglan] Allergy (Verified 06/05/18 11:41) TAPE ADHESIVE Allergy (Uncoded 06/05/18 11:41) - Review of Systems ROS: No change since H&P - Vital Signs and I&O's Vital Signs: Temperature 97.7 F Pulse Rate [Apical] 114 Pulse Rate [Right Brachial] 121 Pulse Rate 124 Respiratory Rate 15 Blood Pressure [Right Arm] 158/113 Blood Pressure 123/84 O2 Sat by Pulse Oximetry 100 Intake and Output: Intake & Output 07/10/18 07/11/18 07/12/18 07/13/18 11:59 11:59 11:59 11:59 Intake Total 6579 / 6579 6296 / 6296 Output Total 3950 / 3950 5900 / 5900 Balance 2629 / 2629 396 / 396 - Physical Exam Oriented: Normal Eyes: Normal Ear: Normal Throat: Normal Respiratory: Normal Cardiovascular: Normal, Edema (+1LLE) : Normal Auscultation: Bowel Sounds: Normal Tenderness: Normal Skin: Wound (LEFT HEEL, LOCALIZED REDNESS, OPEN WOUND WITH FOUL D/C, TENDER TO TOUCH, SURROUNDED BY THICK CALLOUS FORMATION) Musculoskeletal: Left, Leg, Ankle, Foot, Swelling Psychiatric: Anxiety, Agitation Mood Description: Angry Affect: Angry, Anxious Speech Pattern: Clear, Appropriate - Laboratory and Diagnostics Result Diagrams: 07/12/18 05:23 07/12/18 09:00 Labs: 07/10/18 02:01 Foot - Left Gram Stain - Final 07/10/18 02:01 Foot - Left Wound Culture - Preliminary 07/12/18 05:40 Stool - Final Laboratory WBC 4.4 X10^3/uL (3.6-10.0) 07/12/18 05:23 RBC 3.82 X10^6/uL (3.5-5.4) 07/12/18 05:23 Hgb 10.8 g/dL (12.0-16.0) L 07/12/18 05:23 Hct 31.8 % (36.0-47.0) L 07/12/18 05:23 MCV 83.2 fL (80.0-100.0) 07/12/18 05:23 MCH 28.3 pg (27.0-34.0) 07/12/18 05:23 MCHC 34.0 g/dL (33.0-35.0) 07/12/18 05:23 RDW 13.5 % (11.6-16.5) 07/12/18 05:23 Plt Count 305 X10^3/uL (150.0-450.0) 07/12/18 05:23 MPV 7.9 fL (7.4-11.0) 07/12/18 05:23 Neut % (Auto) 52.4 % (42.0-75.0) 07/12/18 05:23 Lymph % (Auto) 35.3 % (21.0-51.0) 07/12/18 05:23 [place] % (Auto) 8.4 % (0.0-13.0) 07/12/18 05:23 Eos % (Auto) 2.5 % (0.9-2.9) 07/12/18 05:23 Baso % (Auto) 1.4 % (0.2-1.0) H 07/12/18 05:23 Neut # (Auto) 2.3 x10^3/uL (2.2-4.8) 07/12/18 05:23 Lymph # (Auto) 1.6 X10^3/uL (1.3-2.9) 07/12/18 05:23 [place] # (Auto) 0.4 x10^3/uL (0.3-0.8) 07/12/18 05:23 Eos # (Auto) 0.1 x10^3/uL (0.0-0.2) 07/12/18 05:23 Baso # (Auto) 0.1 X10^3/uL (0.0-0.1) 07/12/18 05:23 Absolute Nucleated RBC 0.0 /100WBC 07/12/18 05:23 Sample Site Right radial 07/11/18 06:00 ABG pH 7.410 (7.35-7.45) 07/11/18 06:00 ABG pCO2 35.0 mmHg (35.0-45.0) 07/11/18 06:00 ABG pO2 98.0 mmHg (80.0-100.0) 07/11/18 06:00 ABG HCO3 22.2 mmol/L (22-26) 07/11/18 06:00 ABG O2 Saturation 98.0 % (90-100) 07/11/18 06:00 ABG Base Excess -1.9 mmol/L (-2.0-2.0) 07/11/18 06:00 Shivam Test Pos 07/11/18 06:00 A-a Gradient 8.0 mmHg 07/11/18 06:00 FiO2 21.000 07/11/18 06:00 Blood Gas Comments Sasha well jts 07/11/18 06:00 Sodium 134 mmol/L (136-145) L 07/12/18 05:23 Corrected Sodium 137 mmol/L (136-145) 07/12/18 05:23 Potassium 3.4 mmol/L (3.5-5.1) L 07/12/18 05:23 Chloride 101 mmol/L (98-107) 07/12/18 05:23 Carbon Dioxide 22.4 mmol/L (21-32) 07/12/18 05:23 BUN 14 mg/dL (7-18) 07/12/18 05:23 Creatinine 0.99 mg/dL (0.55-1.02) 07/12/18 09:00 Est GFR (MDRD) Af Amer > 60 (>60) 07/12/18 05:23 Est GFR (MDRD) Non-Af > 60 (>60) 07/12/18 05:23 Glucose 230 mg/dL (65-99) H 07/12/18 05:23 POC Glucose (mg/dL) 226 mg/dL (65-99) H 07/12/18 11:43 Hemoglobin A1c 11.0 % 07/10/18 14:50 Lactic Acid 2.5 mmol/L (0.4-2.0) H 07/10/18 02:22 Calcium 8.7 mg/dL (8.5-10.1) 07/12/18 05:23 Corrected Calcium 9.7 mg/dL (8.5-10.1) 07/12/18 05:23 Magnesium 1.8 mg/dL (1.7-2.9) 07/12/18 05:23 Total Bilirubin 0.10 mg/dL (0.2-1.0) L 07/12/18 05:23 AST 25 Units/L (15-37) 07/12/18 05:23 ALT 25 Units/L (12-78) 07/12/18 05:23 Alkaline Phosphatase 191 Units/L (46-116) H 07/12/18 05:23 C-Reactive Protein 13.70 mg/L (0-3.0) H 07/10/18 02:22 Total Protein 7.9 g/dL (6.4-8.2) 07/12/18 05:23 Albumin 2.8 g/dL (3.4-5.0) L 07/12/18 05:23 Globulin 5.1 g/dL (2.5-4.5) H 07/12/18 05:23 Albumin/Globulin Ratio 0.5 Ratio (1.1-2.1) L 07/12/18 05:23 Urine Acetone Large (NEGATIVE) H 07/10/18 16:09 Stl C. diff Tox B Gene Negative (NEGATIVE) 07/12/18 05:40 Stl C. diff 027-NAP1-BI Negative (NEGATIVE) 07/12/18 05:40 Vancomycin Trough 4.6 ug/mL (15-20) L 07/12/18 09:00 Acetone, Semi-Quant Negative (NEGATIVE) 07/12/18 05:23 - Plan (1) Cellulitis of left leg Status: Acute Plan: OPEN WOUND TO LEFT FOOT,. WOUND CULTURES AND IV ATBX. SURGICAL CONSULT, BLOOD SUGAR CONTROL,. PAIN AND NAUSEA CONTROL. DIABETIC DIET, AM CBC CMP. BLOOD CULTURES ON ADMISSION, OBTAIN LAST NUCLEAR BONE SCAN REPORT- PT STATES HAD ONE ABOUT ONE MONTH AGO. HYDRATION (2) Osteomyelitis Status: Acute Qualifiers: Osteomyelitis type: unspecified type (3) Autoimmune pancreatitis Status: Acute (4) Bipolar 1 disorder Status: Chronic (5) Diabetes Status: Chronic Plan: SSI, VERIFY HOME MEDS, RESTART LANTUS. URINE ACETONE NEGATIVE THIS AM (6) Hypothyroid Status: Chronic (7) DKA (diabetic ketoacidoses) Status: Acute Plan: INSULIN, HYDRATION. ABG Q AM NORMAL, REPEAT FOR INCREASED SOB, CP S/S WORSENING. SERIAL BS, AM CMP. AM ACETONE LEVEL. TREATMENT OF INFECTION
--- NOTE | 2018-07-12 13:36 | DR.PROGNOT ---
Hospital Progress Notes - Progress Note for Day of: Progress Note Date: 07/12/18 - Chief Complaint Chief Complaint: still having Lt foot pain and swelling . BS is controlled now . MRI of the Lt foot revealed osteomyelitit of the great toe . no abscess formation . avulsed achilles tendon and skin ulcer - Past Medical Family Social History Past Med/Fam/Surg Hx: No changes since H&P Allergies: Allergies acetaminophen [From Tylenol] Allergy (Verified 06/05/18 11:41) metoclopramide [From Reglan] Allergy (Verified 06/05/18 11:41) TAPE ADHESIVE Allergy (Uncoded 06/05/18 11:41) - Review Of Systems ROS: No change since H&P - Vital Signs Vital Signs: Temperature 97.7 F Pulse Rate [Apical] 114 Pulse Rate [Right Brachial] 121 Pulse Rate 124 Respiratory Rate 15 Blood Pressure [Right Arm] 158/113 Blood Pressure 123/84 O2 Sat by Pulse Oximetry 100 - Physical Exam Oriented: Normal Eyes: Normal Ear: Normal Throat: Normal Respiratory: Normal Cardiovascular: Normal, Edema (+1LLE) : Normal GI:Auscultation: Normal GI:Palpation: Normal GI: Tenderness: Normal Skin: Wound (LEFT HEEL, LOCALIZED REDNESS, OPEN WOUND WITH FOUl smelling drainage , TENDER TO TOUCH, SURROUNDED BY THICK CALLOUS FORMATION.skin erythema and foot edema extending to the leg ) Musculoskeletal: Left, Leg, Ankle, Foot, Swelling Psychiatric: Anxiety, Agitation Mood Description: Angry Affect: Angry, Anxious Speech Pattern: Clear, Appropriate - Laboratory and Diagnostics Result Diagrams: 07/12/18 05:23 07/12/18 09:00 Labs: 07/10/18 02:01 Foot - Left Gram Stain - Final 07/10/18 02:01 Foot - Left Wound Culture - Preliminary 07/12/18 05:40 Stool - Final Laboratory WBC 4.4 X10^3/uL (3.6-10.0) 07/12/18 05:23 RBC 3.82 X10^6/uL (3.5-5.4) 07/12/18 05:23 Hgb 10.8 g/dL (12.0-16.0) L 07/12/18 05:23 Hct 31.8 % (36.0-47.0) L 07/12/18 05:23 MCV 83.2 fL (80.0-100.0) 07/12/18 05:23 MCH 28.3 pg (27.0-34.0) 07/12/18 05:23 MCHC 34.0 g/dL (33.0-35.0) 07/12/18 05:23 RDW 13.5 % (11.6-16.5) 07/12/18 05:23 Plt Count 305 X10^3/uL (150.0-450.0) 07/12/18 05:23 MPV 7.9 fL (7.4-11.0) 07/12/18 05:23 Neut % (Auto) 52.4 % (42.0-75.0) 07/12/18 05:23 Lymph % (Auto) 35.3 % (21.0-51.0) 07/12/18 05:23 [place] % (Auto) 8.4 % (0.0-13.0) 07/12/18 05:23 Eos % (Auto) 2.5 % (0.9-2.9) 07/12/18 05:23 Baso % (Auto) 1.4 % (0.2-1.0) H 07/12/18 05:23 Neut # (Auto) 2.3 x10^3/uL (2.2-4.8) 07/12/18 05:23 Lymph # (Auto) 1.6 X10^3/uL (1.3-2.9) 07/12/18 05:23 [place] # (Auto) 0.4 x10^3/uL (0.3-0.8) 07/12/18 05:23 Eos # (Auto) 0.1 x10^3/uL (0.0-0.2) 07/12/18 05:23 Baso # (Auto) 0.1 X10^3/uL (0.0-0.1) 07/12/18 05:23 Absolute Nucleated RBC 0.0 /100WBC 07/12/18 05:23 Sample Site Right radial 07/11/18 06:00 ABG pH 7.410 (7.35-7.45) 07/11/18 06:00 ABG pCO2 35.0 mmHg (35.0-45.0) 07/11/18 06:00 ABG pO2 98.0 mmHg (80.0-100.0) 07/11/18 06:00 ABG HCO3 22.2 mmol/L (22-26) 07/11/18 06:00 ABG O2 Saturation 98.0 % (90-100) 07/11/18 06:00 ABG Base Excess -1.9 mmol/L (-2.0-2.0) 07/11/18 06:00 Shivam Test Pos 07/11/18 06:00 A-a Gradient 8.0 mmHg 07/11/18 06:00 FiO2 21.000 07/11/18 06:00 Blood Gas Comments Sasha well jts 07/11/18 06:00 Sodium 134 mmol/L (136-145) L 07/12/18 05:23 Corrected Sodium 137 mmol/L (136-145) 07/12/18 05:23 Potassium 3.4 mmol/L (3.5-5.1) L 07/12/18 05:23 Chloride 101 mmol/L (98-107) 07/12/18 05:23 Carbon Dioxide 22.4 mmol/L (21-32) 07/12/18 05:23 BUN 14 mg/dL (7-18) 07/12/18 05:23 Creatinine 0.99 mg/dL (0.55-1.02) 07/12/18 09:00 Est GFR (MDRD) Af Amer > 60 (>60) 07/12/18 05:23 Est GFR (MDRD) Non-Af > 60 (>60) 07/12/18 05:23 Glucose 230 mg/dL (65-99) H 07/12/18 05:23 POC Glucose (mg/dL) 226 mg/dL (65-99) H 07/12/18 11:43 Hemoglobin A1c 11.0 % 07/10/18 14:50 Lactic Acid 2.5 mmol/L (0.4-2.0) H 07/10/18 02:22 Calcium 8.7 mg/dL (8.5-10.1) 07/12/18 05:23 Corrected Calcium 9.7 mg/dL (8.5-10.1) 07/12/18 05:23 Magnesium 1.8 mg/dL (1.7-2.9) 07/12/18 05:23 Total Bilirubin 0.10 mg/dL (0.2-1.0) L 07/12/18 05:23 AST 25 Units/L (15-37) 07/12/18 05:23 ALT 25 Units/L (12-78) 07/12/18 05:23 Alkaline Phosphatase 191 Units/L (46-116) H 07/12/18 05:23 C-Reactive Protein 13.70 mg/L (0-3.0) H 07/10/18 02:22 Total Protein 7.9 g/dL (6.4-8.2) 07/12/18 05:23 Albumin 2.8 g/dL (3.4-5.0) L 07/12/18 05:23 Globulin 5.1 g/dL (2.5-4.5) H 07/12/18 05:23 Albumin/Globulin Ratio 0.5 Ratio (1.1-2.1) L 07/12/18 05:23 Urine Acetone Large (NEGATIVE) H 07/10/18 16:09 Stl C. diff Tox B Gene Negative (NEGATIVE) 07/12/18 05:40 Stl C. diff 027-NAP1-BI Negative (NEGATIVE) 07/12/18 05:40 Vancomycin Trough 4.6 ug/mL (15-20) L 07/12/18 09:00 Acetone, Semi-Quant Negative (NEGATIVE) 07/12/18 05:23 - Assessment and Plan 1: oseomyelitis Lt foot mainly great toe ,possible metatarsal head . avulsed Achilles tendon with shortening of the tendon . decubitus ulcer Lt heel. Type 1 DM . Same IV ATB . orthopedic consult - Problem Patient Problems: Patient Problems Cellulitis of left leg (Acute) L03.116 Osteomyelitis (Acute) M86.9
--- NOTE | 2018-07-12 15:03 | VAS ---
Examination: Left leg DVT study Clinical History: Left leg swelling. Technique: Duplex Doppler ultrasound utilizing jay scale imaging and spectral analysis with color/du plex imaging was used to evaluate the deep venous system of the left leg from the calf to the groin. Comparison: None available. Findings: There is normal flow, compressibility and augmentation of the common femoral-, superficial femoral-, and popliteal veins. There is no sonographic evidence of a deep venous thrombosis in the left leg. Impression: 1. There is no sonographic evidence of a deep venous thrombosis in the left leg. Reported By:
[2018-07-12] MEDS ORDERED: VANCOMYCIN HCL 1 GM VIAL ONE (15:20)
[2018-07-12] MEDS ORDERED: LANTUS SC ONE (15:41)
[2018-07-12] MEDS ORDERED: HumuLIN R IV ONE (17:48)
[2018-07-12] MEDS ORDERED: HumuLIN R SUBCUT ONE (18:07)
[2018-07-12] MEDS: ZESTRIL TAB 10 MG PO SCH (18:21)
[2018-07-12] MEDS ORDERED: SNACK - Diabetic Appropriate PO SCH ×6 (20:00)
[2018-07-12] MEDS ORDERED: LANTUS SC SCH (21:00)
[2018-07-12] MEDS ORDERED: NORCO 5/325 MG TAB PO PRN (22:05)
[2018-07-12] MEDS: TORADOL 15 MG VIAL IVP PRN (22:58)
[2018-07-13] MEDS: NS 1000 ML 1,000 ML IV SCH ×4 (00:08→17:56)
[2018-07-13] MEDS ORDERED: ULTRAM ONE (01:12)
[2018-07-13] MEDS: ULTRAM PO PRN ×3 (01:21→11:02)
[2018-07-13] MEDS: HumuLIN R SUBCUT PRN ×2 (04:35→11:38)
[2018-07-13] MEDS: NEURONTIN TAB 600 MG PO SCH ×2 (05:09→14:24)
[2018-07-13] MEDS: ZOSYN VIAL 3.375 GRAMS 3.375 G in NS 100 ML IV + SPIKE MINIBAG* 100 ML IV SCH ×2 (05:10→14:25)
[2018-07-13] MEDS: VANCOMYCIN HCL 1 GM VIAL 1 G in NS 250 ML IV 250 ML IV SCH ×2 (05:10→14:26)
[2018-07-13] MEDS: CREON PO SCH ×3 (05:58→16:30)
[2018-07-13 06:13] LABS: BASOPHILS % (AUTO) 1.2 % (0.2-1.0); EOSINOPHILS # (AUTO) 0.1 x10^3/uL (0.0-0.2); EOSINOPHILS % (AUTO) 3.3 % (0.9-2.9); HEMATOCRIT 32.1 % (36.0-47.0); HEMOGLOBIN 10.9 g/dL (12.0-16.0); LYMPHOCYTES # (AUTO) 1.4 X10^3/uL (1.3-2.9); LYMPHOCYTES % (AUTO) 35.6 % (21.0-51.0); MEAN CORPUSCULAR HEMOGLOBIN 28.2 pg (27.0-34.0); MEAN CORPUSCULAR VOLUME 82.8 fL (80.0-100.0); MEAN PLATELET VOLUME 8.1 fL (7.4-11.0); MONOCYTES # (AUTO) 0.4 x10^3/uL (0.3-0.8); MONOCYTES % (AUTO) 10.4 % (0.0-13.0); NEUTROPHILS % (AUTO) 49.5 % (42.0-75.0); PLATELET COUNT 266 X10^3/uL (150.0-450.0); RED BLOOD COUNT 3.88 X10^6/uL (3.5-5.4); RED CELL DISTRIBUTION WIDTH 13.2 % (11.6-16.5)
[2018-07-13 06:31] LABS: SERUM ACETONE NEGATIVE (NEGATIVE)
[2018-07-13 06:37] LABS: ALANINE AMINOTRANSFERASE 26 Units/L (12-78); ALBUMIN 2.8 g/dL (3.4-5.0); ALKALINE PHOSPHATASE 174 Units/L (46-116); ASPARTATE AMINO TRANSFERASE 34 Units/L (15-37); BLOOD UREA NITROGEN 13 mg/dL (7-18); CALCIUM 8.7 mg/dL (8.5-10.1); CARBON DIOXIDE 20.7 mmol/L (21-32); CHLORIDE 102 mmol/L (98-107); COR CA(FOR HYPOALB) 9.7 mg/dL (8.5-10.1); COR NA(FOR HYPERGLY) 140 mmol/L (136-145); CREATININE 0.71 mg/dL (0.55-1.02); SODIUM 137 mmol/L (136-145); TOTAL PROTEIN 7.3 g/dL (6.4-8.2); eGFR NON BLACK RACES > 60 (>60)
--- NOTE | 2018-07-13 08:09 | DR.PROGNOT ---
Hospital Progress Notes - Progress Note for Day of: Progress Note Date: 07/13/18 - Chief Complaint Chief Complaint: still having Lt foot pain and swelling . BS is controlled now . having frequent loose BM with negative C Dif. MRI of the Lt foot revealed osteomyelitit of the great toe . no abscess formation . avulsed achilles tendon and skin ulcer - Past Medical Family Social History Past Med/Fam/Surg Hx: No changes since H&P Allergies: Allergies acetaminophen [From Tylenol] Allergy (Verified 06/05/18 11:41) metoclopramide [From Reglan] Allergy (Verified 06/05/18 11:41) TAPE ADHESIVE Allergy (Uncoded 06/05/18 11:41) - Review Of Systems ROS: No change since H&P - Vital Signs Vital Signs: Temperature 98.3 F Pulse Rate [Apical] 116 Pulse Rate [Right Brachial] 121 Pulse Rate 124 Respiratory Rate 33 Blood Pressure [Right Arm] 144/100 Blood Pressure 123/84 O2 Sat by Pulse Oximetry 100 - Physical Exam Oriented: Normal Eyes: Normal Ear: Normal Throat: Normal Respiratory: Normal Cardiovascular: Normal, Edema (+1LLE) : Normal GI:Auscultation: Normal GI:Palpation: Normal GI: Tenderness: Normal Skin: Wound (LEFT HEEL, LOCALIZED REDNESS, OPEN WOUND WITH FOUl smelling drainage , TENDER TO TOUCH, SURROUNDED BY THICK CALLOUS FORMATION.skin erythema and foot edema extending to the leg ) Musculoskeletal: Left (decubitus ulcer 3 x 2 cm Lt heel with moderate cellulitis ), Leg, Ankle, Foot, Swelling Psychiatric: Anxiety, Agitation Mood Description: Angry Affect: Angry, Anxious Speech Pattern: Clear, Appropriate - Laboratory and Diagnostics Result Diagrams: 07/13/18 05:30 07/13/18 05:30 Labs: 07/10/18 02:01 Foot - Left Gram Stain - Final 07/10/18 02:01 Foot - Left Wound Culture - Preliminary 07/12/18 05:40 Stool - Final Laboratory WBC 4.0 X10^3/uL (3.6-10.0) 07/13/18 05:30 RBC 3.88 X10^6/uL (3.5-5.4) 07/13/18 05:30 Hgb 10.9 g/dL (12.0-16.0) L 07/13/18 05:30 Hct 32.1 % (36.0-47.0) L 07/13/18 05:30 MCV 82.8 fL (80.0-100.0) 07/13/18 05:30 MCH 28.2 pg (27.0-34.0) 07/13/18 05:30 MCHC 34.0 g/dL (33.0-35.0) 07/13/18 05:30 RDW 13.2 % (11.6-16.5) 07/13/18 05:30 Plt Count 266 X10^3/uL (150.0-450.0) 07/13/18 05:30 MPV 8.1 fL (7.4-11.0) 07/13/18 05:30 Neut % (Auto) 49.5 % (42.0-75.0) 07/13/18 05:30 Lymph % (Auto) 35.6 % (21.0-51.0) 07/13/18 05:30 [place] % (Auto) 10.4 % (0.0-13.0) 07/13/18 05:30 Eos % (Auto) 3.3 % (0.9-2.9) H 07/13/18 05:30 Baso % (Auto) 1.2 % (0.2-1.0) H 07/13/18 05:30 Neut # (Auto) 2.0 x10^3/uL (2.2-4.8) L 07/13/18 05:30 Lymph # (Auto) 1.4 X10^3/uL (1.3-2.9) 07/13/18 05:30 [place] # (Auto) 0.4 x10^3/uL (0.3-0.8) 07/13/18 05:30 Eos # (Auto) 0.1 x10^3/uL (0.0-0.2) 07/13/18 05:30 Baso # (Auto) 0.0 X10^3/uL (0.0-0.1) 07/13/18 05:30 Absolute Nucleated RBC 0.1 /100WBC 07/13/18 05:30 Sample Site Right radial 07/11/18 06:00 ABG pH 7.410 (7.35-7.45) 07/11/18 06:00 ABG pCO2 35.0 mmHg (35.0-45.0) 07/11/18 06:00 ABG pO2 98.0 mmHg (80.0-100.0) 07/11/18 06:00 ABG HCO3 22.2 mmol/L (22-26) 07/11/18 06:00 ABG O2 Saturation 98.0 % (90-100) 07/11/18 06:00 ABG Base Excess -1.9 mmol/L (-2.0-2.0) 07/11/18 06:00 Shivam Test Pos 07/11/18 06:00 A-a Gradient 8.0 mmHg 07/11/18 06:00 FiO2 21.000 07/11/18 06:00 Blood Gas Comments Sasha well jts 07/11/18 06:00 Sodium 137 mmol/L (136-145) 07/13/18 05:30 Corrected Sodium 140 mmol/L (136-145) 07/13/18 05:30 Potassium 3.8 mmol/L (3.5-5.1) 07/13/18 05:30 Chloride 102 mmol/L (98-107) 07/13/18 05:30 Carbon Dioxide 20.7 mmol/L (21-32) L 07/13/18 05:30 BUN 13 mg/dL (7-18) 07/13/18 05:30 Creatinine 0.71 mg/dL (0.55-1.02) 07/13/18 05:30 Est GFR (MDRD) Af Amer > 60 (>60) 07/13/18 05:30 Est GFR (MDRD) Non-Af > 60 (>60) 07/13/18 05:30 Glucose 210 mg/dL (65-99) H 07/13/18 05:30 POC Glucose (mg/dL) 121 mg/dL (65-99) H 07/13/18 06:33 Hemoglobin A1c 11.0 % 07/10/18 14:50 Lactic Acid 2.5 mmol/L (0.4-2.0) H 07/10/18 02:22 Calcium 8.7 mg/dL (8.5-10.1) 07/13/18 05:30 Corrected Calcium 9.7 mg/dL (8.5-10.1) 07/13/18 05:30 Magnesium 1.8 mg/dL (1.7-2.9) 07/12/18 05:23 Total Bilirubin 0.20 mg/dL (0.2-1.0) 07/13/18 05:30 AST 34 Units/L (15-37) 07/13/18 05:30 ALT 26 Units/L (12-78) 07/13/18 05:30 Alkaline Phosphatase 174 Units/L (46-116) H 07/13/18 05:30 C-Reactive Protein 13.70 mg/L (0-3.0) H 07/10/18 02:22 Total Protein 7.3 g/dL (6.4-8.2) 07/13/18 05:30 Albumin 2.8 g/dL (3.4-5.0) L 07/13/18 05:30 Globulin 4.5 g/dL (2.5-4.5) 07/13/18 05:30 Albumin/Globulin Ratio 0.6 Ratio (1.1-2.1) L 07/13/18 05:30 Urine Acetone Negative (NEGATIVE) 07/12/18 15:12 Stl C. diff Tox B Gene Negative (NEGATIVE) 07/12/18 05:40 Stl C. diff 027-NAP1-BI Negative (NEGATIVE) 07/12/18 05:40 Vancomycin Trough 4.6 ug/mL (15-20) L 07/12/18 09:00 Acetone, Semi-Quant Negative (NEGATIVE) 07/13/18 05:30 - Assessment and Plan 1: oseomyelitis Lt foot mainly great toe ,possible metatarsal head . avulsed Achilles tendon with shortening of the tendon . decubitus ulcer Lt heel. Type 1 DM . Same IV ATB for 2 months via PIC line. orthopedic consult was requested - Problem Patient Problems: Patient Problems Cellulitis of left leg (Acute) L03.116 Osteomyelitis (Acute) M86.9
[2018-07-13] MEDS ORDERED: LANTUS SC SCH (09:00)
[2018-07-13] MEDS: ZESTRIL TAB 10 MG PO SCH (09:05)
[2018-07-13] MEDS: SYNTHROID 100 mcg TAB PO SCH (09:06)
[2018-07-13] MEDS: PROTONIX TAB 40 MG PO SCH (09:06)
[2018-07-13] MEDS: LIOTHYRONINE SODIUM 5 MCG PO SCH (09:07)
[2018-07-13] MEDS: PAXIL PO SCH (09:07)
[2018-07-13] MEDS ORDERED: LOMOTIL ONE (09:15)
[2018-07-13] MEDS ORDERED: LOMOTIL PO PRN (09:19)
[2018-07-13] MEDS: TORADOL 15 MG VIAL IVP PRN (09:22)
[2018-07-13] MEDS ORDERED: XYLOCAINE 1 % (PLAIN) ONE ×2 (10:19→10:21)
--- NOTE | 2018-07-13 11:08 | RAD ---
HISTORY: PICC line placement Study: Single-view chest Comparison: 05/30/2018. Findings: Right-sided PICC line is present with the tip in the cavoatrial junction. No pneumothorax is seen. Tr achea is midline. Heart size is normal. Lungs and pleural spaces are clear. Osseous structures are in tact. IMPRESSION: Right-sided PICC line with the tip at the cavoatrial junction. No pneumothorax. No acute cardiopulmonary disease. Reported By:
--- NOTE | 2018-07-13 11:43 | DR.UPDATE ---
H&P Update History and Physical Update: History and Physical reviewed and patient examined. Changes noted: NO Yes with the following:agree with H&P. will place picc Procedures (ALL) - Central Line Placement PCM.CLCO: written consent Time out performed: Yes Patient placed pm monitor/pulse ox: Yes prep: mask, gown, gloves, other Centrial line prep: povidone-iodine 1% Local anesthsia used: lidocane 1% Ultrasound used for placement: Yes (right basilic id'd via u/s) Central line lumen ininserted: double (5Ffr power port. trimmed length 41cm, 3cm exposed) Post procedure: good blood return, all ports aspirated, flushed,capped, sterile dressing applied Post procedure xray: tip oc catheter in good position, no pneumothorax seen Patient tolerated procedure: Yes Complications: none
[2018-07-13] MEDS ORDERED: PHARMACY COMMENT IV NR (13:30)
[2018-07-13 14:22] LABS: CREATININE 1.05 mg/dL (0.55-1.02); VANCOMYCIN,TROUGH 12.4 ug/mL (15-20)
[2018-07-13] MEDS ORDERED: DIFLUCAN PO SCH (15:00)
[2018-07-13 17:05] VITALS: BP 135/88
== END 2018-07-13 17:50 | disposition short-term general hospital (02) | DRG 602 ==
LOC: ER 23:35 → MED/SURG 23:35 → ICU 07-10 14:21
PROVIDERS: ADMIT Internal Medicine; ATTEND Internal Medicine
DX: L89.629 Pressure ulcer of left heel, unspecified stage; M86.172 Other acute osteomyelitis, left ankle and foot; F41.8 Other specified anxiety disorders; B95.1 Streptococcus, group B, as the cause of diseases classified elsewhere; R79.82 Elevated C-reactive protein (CRP); Z91.81 History of falling; F31.89 Other bipolar disorder; E10.69 Type 1 diabetes mellitus with other specified complication; K85.90 Acute pancreatitis without necrosis or infection, unspecified; E10.10 Type 1 diabetes mellitus with ketoacidosis without coma; E03.8 Other specified hypothyroidism; L03.116 Cellulitis of left lower limb; K21.9 Gastro-esophageal reflux disease without esophagitis
CPT/HCPCS: 36415; 36569; 36600; 71010; 71045; 73630; 73720; 80048; 80053; 80202; 82009; 82438; 82565; 82705; 82803; 82947; 83036; 83605; 83735; 84302; 84999; 85025; 85652; 86140; 87040; 87045; 87070; 87075; 87077; 87186; 87205; 87449; 87493; 87899; 93971; 96365; 96374; 99283; 99284; A4222; Q0169; Q0177; G0378; J0713; J1815; J1885; J2175; J2270; J2543; J3370; J7030; J7040; J7050; J8499

== ENCOUNTER 2018-08-14 19:05 | Observation (INO) ==
[2018-08-14] MEDS ORDERED: NS 1000 ML 1,000 ML ONE ×3 (19:20→21:29)
[2018-08-14] MEDS ORDERED: NS 1000 ML 1,000 ML IV ONE ×2 (19:42→20:04)
[2018-08-14 20:16] LABS: BASOPHILS # (AUTO) 0.1 X10^3/uL (0.0-0.1); EOSINOPHILS % (AUTO) 0.5 % (0.9-2.9); HEMATOCRIT 33.5 % (36.0-47.0); HEMOGLOBIN 11.2 g/dL (12.0-16.0); LYMPHOCYTES # (AUTO) 1.6 X10^3/uL (1.3-2.9); LYMPHOCYTES % (AUTO) 20.6 % (21.0-51.0); MEAN CORPUSCULAR HGB CONC 33.3 g/dL (33.0-35.0); MEAN PLATELET VOLUME 8.4 fL (7.4-11.0); MONOCYTES # (AUTO) 0.8 x10^3/uL (0.3-0.8); MONOCYTES % (AUTO) 10.2 % (0.0-13.0); NEUTROPHILS # (AUTO) 5.3 x10^3/uL (2.2-4.8); NEUTROPHILS % (AUTO) 67.7 % (42.0-75.0); PLATELET COUNT 355 X10^3/uL (150.0-450.0); RED BLOOD COUNT 3.99 X10^6/uL (3.5-5.4); RED CELL DISTRIBUTION WIDTH 15.6 % (11.6-16.5); WHITE BLOOD COUNT 7.8 X10^3/uL (3.6-10.0)
[2018-08-14 20:27] LABS: SERUM ACETONE MODERATE (NEGATIVE)
[2018-08-14 20:31] LABS: SALICYLATE 5.1 mg/dL (2.8-20)
[2018-08-14 20:32] LABS: BLOOD UREA NITROGEN 24 mg/dL (7-18); CALCIUM 8.9 mg/dL (8.5-10.1); CHLORIDE 95 mmol/L (98-107); COR NA(FOR HYPERGLY) 135 mmol/L (136-145); CREATININE 2.66 mg/dL (0.55-1.02); SODIUM 134 mmol/L (136-145); eGFR NON BLACK RACES 23 (>60)
[2018-08-14 20:36] LABS: ALANINE AMINOTRANSFERASE 38 Units/L (12-78); ALBUMIN 3.1 g/dL (3.4-5.0); ALKALINE PHOSPHATASE 197 Units/L (46-116); AMYLASE 56 Units/L (25-115); ASPARTATE AMINO TRANSFERASE 33 Units/L (15-37); COR CA(FOR HYPOALB) 9.6 mg/dL (8.5-10.1); LIPASE 387 Units/L (73-393); TOTAL PROTEIN 7.8 g/dL (6.4-8.2)
[2018-08-14 20:40] LABS: CARBON DIOXIDE 12.4 mmol/L (21-32)
[2018-08-14 20:41] LABS: LACTIC ACID 5.7 mmol/L (0.4-2.0)
--- NOTE | 2018-08-14 21:00 | DR.GENAD ---
HPI Time Seen Time Seen by Provider: 08/14/18 19:41 PCP Primary Care Physician: RADHA Complaint/Symptoms Chief Complaint Doctors Comments: Patient presents to the ED for evaluation of abdominal pain. She admits to a history of pancreatitis (11years)and diabetes for 19 years. She states that she could not keep anything down. She usually does not take medication for pancreatitis and is on insulin for her DM. Chief Complaint:: PT BP IS LOW SHES BEEN POOPING AND VOMITING ALL DAY Source History Provided: Family Member Mode of Arrival Mode of Arrival: Wheelchair Timing Onset of Chief Complaint: 08/14/18 PMH PMH Past Medical History: Yes Past Medical History: Anxiety, CHF, Diabetes, Migraines, GERD, Hypothyroidism and Liver Disease Past Surgical History: Yes Surgical History: Appendectomy, Cholecystectomy and Ortho Surgery Family History History of Family Medical Conditions: Yes Family Medical History: Diabetes Mellitus, Coronary Artery Disease and Heart Failure Social History Does any household member use tobacco: No Alcohol Use: None Do you use any recreational Drugs:: No Lives With: Family Lives Where: Home infectious screening In the last 2 months have you had wt loss of >10#?: NO Have you had fever, night sweats or hemotysis?: No Have you traveled outside the country in the last 6 months?: No Isolation: Standard PE Vital Signs Vitals: Temperature 98.0 F Pulse Rate [Left] 117 Pulse Rate 126 Respiratory Rate 14 Blood Pressure [Left Arm] 114/59 Blood Pressure [Right Arm] 84/56 Blood Pressure 58/33 O2 Sat by Pulse Oximetry 99 General Limitations: No Limitations and Language Barrier General Appearance: Alert, Anxious and In Distress Head Head Exam: Normal Inspection, Atraumatic and Normocephalic Eyes Eye exam: Normal Appearance, PERRL and EOMI ENT ENT Exam: Normal Exam, Normal Oropharynx and Normal External Ear Exam External Ear Exam: Normal External Inspection; negative Auricular Hematoma and Auricular Trauma TM/Canal Exam: Bilateral: Normal Nose Exam: Normal Nose Exam Mouth Exam: Normal Inspection Throat Exam: Normal Inspection Neck Neck Exam: Normal Inspection, Full ROM and Trachea Midline Chest Chest Inspection: Normal Inspection and Symmetric Chest Wall Rise; negative Tenderness Respiratory Respiratory Exam: Normal Lung Sounds Bilat; negative Accessory Muscle Use and Chest Wall Tenderness Respiratory Exam: Bilateral: Clear to Auscultation Cardiovascular Cardiovascular Exam: Regular Rate and Normal Rhythm Abdominal Exam Abdominal Exam: Normal Inspection and Normal Bowel Sounds Abdominal Tenderness: Diffuse Extremities Extremities Exam: Normal Inspection and Full ROM Back Back Exam: Normal Inspection and Full ROM Neurologic Neurological Exam: Alert and Oriented X3 Skin Skin Exam: Warm and Dry COURSE Treatment Treatment: NSx3L, analgesics,antibiotic Reevaluation 1st: Improved (Patient continues to fluctuate with hypotension s/p two liters ns.) Consultation Called: 23:50 Consultation Comments: Patient discussed with Dr. Fox who agreed to admit for further treatment with presumptive diagnosis of severe dehydration. ROR Labs Reviewed Laboratory Results Reviewed?: Yes Result Diagrams: 08/15/18 01:46 08/14/18 20:05 Laboratory: WBC 6.2 X10^3/uL (3.6-10.0) 08/15/18 01:46 RBC 3.35 X10^6/uL (3.5-5.4) L 08/15/18 01:46 Hgb 9.5 g/dL (12.0-16.0) L 08/15/18 01:46 Hct 27.6 % (36.0-47.0) L 08/15/18 01:46 MCV 82.2 fL (80.0-100.0) 08/15/18 01:46 MCH 28.2 pg (27.0-34.0) 08/15/18 01:46 MCHC 34.4 g/dL (33.0-35.0) 08/15/18 01:46 RDW 15.2 % (11.6-16.5) 08/15/18 01:46 Plt Count 199 X10^3/uL (150.0-450.0) 08/15/18 01:46 Plt Count Comment Adequate (ADEQUATE) 08/15/18 01:46 MPV 8.2 fL (7.4-11.0) 08/15/18 01:46 Neut % (Auto) 65.8 % (42.0-75.0) 08/15/18 01:46 Lymph % (Auto) 20.9 % (21.0-51.0) L 08/15/18 01:46 [place] % (Auto) 10.5 % (0.0-13.0) 08/15/18 01:46 Eos % (Auto) 1.9 % (0.9-2.9) 08/15/18 01:46 Baso % (Auto) 0.9 % (0.2-1.0) 08/15/18 01:46 Neut # (Auto) 3.7 x10^3/uL (2.2-4.8) 08/15/18 01:46 Lymph # (Auto) 1.2 X10^3/uL (1.3-2.9) L 08/15/18 01:46 [place] # (Auto) 0.6 x10^3/uL (0.3-0.8) 08/15/18 01:46 Eos # (Auto) 0.1 x10^3/uL (0.0-0.2) 08/15/18 01:46 Baso # (Auto) 0.0 X10^3/uL (0.0-0.1) 08/15/18 01:46 Absolute Nucleated RBC 0.0 /100WBC 08/15/18 01:46 Plt Morphology Comment Normal (NORMAL) 08/15/18 01:46 RBC Morphology Normal (NORMAL) 08/15/18 01:46 Sample Site [place] 08/14/18 22:57 ABG pH 7.360 (7.35-7.45) 08/14/18 22:57 ABG pCO2 35.0 mmHg (35.0-45.0) 08/14/18 22:57 ABG pO2 94.0 mmHg (80.0-100.0) 08/14/18 22:57 ABG HCO3 19.8 mmol/L (22-26) L 08/14/18 22:57 ABG O2 Saturation 97.0 % (90-100) 08/14/18 22:57 ABG Base Excess -5.0 mmol/L (-2.0-2.0) L 08/14/18 22:57 Shivam Test Pos 08/14/18 22:57 A-a Gradient 12.0 mmHg 08/14/18 22:57 FiO2 21 08/14/18 22:57 Blood Gas Comments Sasha abg well-mtf 08/14/18 22:57 Sodium 134 mmol/L (136-145) L 08/14/18 20:05 Corrected Sodium 135 mmol/L (136-145) L 08/14/18 20:05 Potassium 3.9 mmol/L (3.5-5.1) 08/14/18 20:05 Chloride 95 mmol/L (98-107) L 08/14/18 20:05 Carbon Dioxide 12.4 mmol/L (21-32) L* 08/14/18 20:05 BUN 24 mg/dL (7-18) H 08/14/18 20:05 Creatinine 2.66 mg/dL (0.55-1.02) H 08/14/18 20:05 Est GFR (MDRD) Af Amer 28 (>60) L 08/14/18 20:05 Est GFR (MDRD) Non-Af 23 (>60) L 08/14/18 20:05 Glucose 150 mg/dL (65-99) H 08/14/18 20:05 POC Glucose (mg/dL) 145 mg/dL (65-99) H 08/14/18 19:30 Lactic Acid 5.7 mmol/L (0.4-2.0) H 08/14/18 20:05 Calcium 8.9 mg/dL (8.5-10.1) 08/14/18 20:05 Corrected Calcium 9.6 mg/dL (8.5-10.1) 08/14/18 20:05 Total Bilirubin 0.40 mg/dL (0.2-1.0) 08/14/18 20:05 AST 33 Units/L (15-37) 08/14/18 20:05 ALT 38 Units/L (12-78) 08/14/18 20:05 Alkaline Phosphatase 197 Units/L (46-116) H 08/14/18 20:05 Creatine Kinase 49 Units/L (26-192) 08/15/18 01:46 CK-MB (CK-2) < 1.0 ng/mL (0-4.0) 08/15/18 01:46 CK/CKMB % Calc 2.0 % (<4) 08/15/18 01:46 Troponin I < 0.02 ng/mL (0-1.5) 08/15/18 01:46 C-Reactive Protein 11.60 mg/L (0-3.0) H 08/14/18 20:05 Total Protein 7.8 g/dL (6.4-8.2) 08/14/18 20:05 Albumin 3.1 g/dL (3.4-5.0) L 08/14/18 20:05 Globulin 4.7 g/dL (2.5-4.5) H 08/14/18 20:05 Albumin/Globulin Ratio 0.7 Ratio (1.1-2.1) L 08/14/18 20:05 Amylase 56 Units/L (25-115) 08/14/18 20:05 Lipase 387 Units/L (73-393) 08/14/18 20:05 Specimen Type Clean catch urine 08/14/18 21:22 Urine Color Yellow (YELLOW) 08/14/18 21:22 Urine Appearance Slightly hazy (CLEAR) 08/14/18 21:22 Urine pH 5.0 (5.0 - 8.0) 08/14/18 21:22 Ur Specific [place] 1.010 (1.000-1.030) 08/14/18 21:22 Urine Protein 3+ (NEGATIVE) 08/14/18 21:22 Urine Glucose (UA) 2+ (NEGATIVE) 08/14/18 21:22 Urine Ketones 3+ (NEGATIVE) 08/14/18 21:22 Urine Occult Blood 2+ (NEGATIVE) 08/14/18 21:22 Urine Nitrite Negative (NEGATIVE) 08/14/18 21:22 Urine Bilirubin Negative (NEGATIVE) 08/14/18 21:22 Urine Urobilinogen Normal (NORMAL) 08/14/18 21:22 Ur Leukocyte Esterase 1+ (NEGATIVE) 08/14/18 21:22 Urine RBC 3-5 /HPF (NONE SEEN) 08/14/18 21:22 Urine WBC 0-2 /HPF (NONE SEEN) 08/14/18 21:22 Ur Squamous Epith Cells Many /HPF (NEGATIVE) 08/14/18 21:22 Ur Renal Epithelial Cell Moderate /HPF (NEGATIVE) 08/14/18 21:22 Urine Bacteria Trace /HPF (NEGATIVE) 08/14/18 21:22 Urine Mucus Many /HPF (NEGATIVE) 08/14/18 21:22 Ur Culture Indicated? No/not indicated 08/14/18 21:22 Salicylates 5.1 mg/dL (2.8-20) 08/14/18 20:05 Urine Opiates Screen Negative (NEG=<300) 08/14/18 21:22 Urine Methadone Screen Negative (NEG=<300) 08/14/18 21:22 Acetaminophen 0.0 ug/mL (10-30) L 08/14/18 20:05 Ur Barbiturates Screen Negative (NEG=<200) 08/14/18 21:22 Ur Phencyclidine Scrn Negative (NEG=<25) 08/14/18 21:22 Ur Amphetamines Screen Negative (NEG=<1000) 08/14/18 21: U Benzodiazepines Scrn Negative (NEG=<200) 08/14/18 21: Urine Cocaine Screen Negative (NEG=<300) 08/14/18 21: U Marijuana (THC) Screen Negative (NEG=<50) 08/14/18: Acetone, Semi-Quant Moderate (NEGATIVE) H 08/15/18 01:46 Other Results Comments: Findings suggestive of atypical infection. CT Chest: Evaluation of the mediastinum is limited without contrast. Accounting for this, no pathologically enlarged intrathoracic lymph nodes can be identified. The thoracic aorta is normal for technique. Normal heart size, without significant pericardial thickening or pericardial effusion. The lungs are clear. No pleural effusion or pneumothorax. The major airways are patent. XRAY XRAY Findings: Chest: cardiomediastinal normal, Perihilar central interstitial prominence
[2018-08-14] MEDS ORDERED: MORPHINE SULFATE INJ 4 MG IVP ONE (21:01)
[2018-08-14] MEDS ORDERED: MORPHINE SULFATE INJ 4 MG ONE (21:28)
[2018-08-14] MEDS ORDERED: NS 1000 ML 1,000 ML IV SCH (21:29)
--- NOTE | 2018-08-14 21:33 | RAD ---
HISTORY: Hypotension. Diarrhea and vomiting Study: Single view of the chest. Comparison: None. Findings: The cardiomediastinal silhouette is normal. Perihilar central interstitial prominence. Osseous struct ures demonstrate no acute abnormality. IMPRESSION: 1. Findings suggestive of atypical infection. Reported By:
[2018-08-14 21:47] LABS: BILIRUBIN,URINE NEGATIVE (NEGATIVE); BLOOD/HEMOGLOBIN,URINE 2+ (NEGATIVE); GLUCOSE, URINE 2+ (NEGATIVE); KETONES,URINE 3+ (NEGATIVE); LEUKOCYTE ESTERASE ,URINE 1+ (NEGATIVE); NITRITES,URINE NEGATIVE (NEGATIVE); PROTEIN,URINE 3+ (NEGATIVE); UROBILINOGEN,URINE NORMAL (NORMAL)
[2018-08-14 22:09] LABS: APPEARANCE,URINE SLIGHTLY HAZY (CLEAR); COLOR,URINE YELLOW (YELLOW)
[2018-08-14 22:10] LABS: BACTERIA,URINE TRACE /HPF (NEGATIVE); MUCUS,URINE MANY /HPF (NEGATIVE); RENAL EPITHELIAL CELLS,URINE MODERATE /HPF (NEGATIVE); SQUAMOUS EPITHELIAL CELL,UR MANY /HPF (NEGATIVE)
[2018-08-14 23:08] LABS: ABG ALLEN TEST POS; ABG HCO3 19.8 mmol/L (22-26); FRACTIONATED INSPIRED OXYGEN 21
[2018-08-14] MEDS ORDERED: D5W 1000 ML IV 1,000 ML IV ONE (23:17)
[2018-08-14] MEDS ORDERED: SODIUM BICARBONATE 8.4% INJ ADULT ONE (23:18)
[2018-08-14] MEDS ORDERED: SODIUM BICARBONATE 8.4% INJ ADULT 50 ML in NS 1/2 500 ML IV 500 ML IV ONE (23:19)
[2018-08-14] MEDS ORDERED: D5 LR 1000 ML 1,000 ML with SODIUM BICARBONATE 8.4% INJ ADULT 100 ML IV ONE ×2 (23:21)
[2018-08-14] MEDS ORDERED: PROTONIX INJ 40 MG VIAL IVP ONE (23:44)
[2018-08-14] MEDS ORDERED: PROTONIX INJ 40 MG VIAL ONE (23:44)
[2018-08-14] MEDS ORDERED: DEXTROSE 5% 500 ML IV SCH (23:45)
[2018-08-15] MEDS ORDERED: NS 1000 ML 1,000 ML IV ONE (00:51)
[2018-08-15] MEDS ORDERED: MORPHINE SULFATE INJ 2 MG INJ IVP PRN (00:51)
[2018-08-15] MEDS ORDERED: ZOFRAN TAB 4 MG PO PRN ×2 (01:07→01:28)
--- NOTE | 2018-08-15 01:14 | CT ---
CT chest without contrast Indication: Chest infection Comparison: None Technique: CT images of the chest were obtained without contrast. Automatic exposure control was util ized. Findings: Images through the upper abdomen demonstrate coarse pancreatic calcifications suggesting se quela of chronic pancreatitis. No acute osseous abnormality. Evaluation of the mediastinum is limited without contrast. Accounting for this, no pathologically enl arged intrathoracic lymph nodes can be identified. The thoracic aorta is normal for technique. Normal heart size, without significant pericardial thickening or pericardial effusion. The lungs are clear. No pleural effusion or pneumothorax. The major airways are patent. Impression: No acute cardiopulmonary abnormality. Chronic pancreatitis. Reported By:
[2018-08-15] MEDS ORDERED: ZOFRAN INJ 4 MG VIAL IVP PRN (01:45)
[2018-08-15] MEDS ORDERED: NS 1000 ML 1,000 ML ONE (01:46)
[2018-08-15] MEDS ORDERED: DEPO-PROVERA CONTRACEPTIVE INJ IM SCH ×2 (02:00)
[2018-08-15] MEDS ORDERED: HumaLOG SC SCH (02:00)
[2018-08-15] MEDS: ZOFRAN INJ 4 MG VIAL IVP PRN ×4 (02:07→23:18)
[2018-08-15] MEDS: MORPHINE SULFATE INJ 2 MG INJ IVP PRN ×4 (02:07→16:40)
[2018-08-15 02:08] LABS: SERUM ACETONE MODERATE (NEGATIVE)
[2018-08-15 02:12] LABS: BASOPHILS % (AUTO) 0.9 % (0.2-1.0); EOSINOPHILS # (AUTO) 0.1 x10^3/uL (0.0-0.2); EOSINOPHILS % (AUTO) 1.9 % (0.9-2.9); HEMATOCRIT 27.6 % (36.0-47.0); HEMOGLOBIN 9.5 g/dL (12.0-16.0); LYMPHOCYTES # (AUTO) 1.2 X10^3/uL (1.3-2.9); LYMPHOCYTES % (AUTO) 20.9 % (21.0-51.0); MEAN CORPUSCULAR HEMOGLOBIN 28.2 pg (27.0-34.0); MEAN CORPUSCULAR HGB CONC 34.4 g/dL (33.0-35.0); MEAN CORPUSCULAR VOLUME 82.2 fL (80.0-100.0); MEAN PLATELET VOLUME 8.2 fL (7.4-11.0); MONOCYTES # (AUTO) 0.6 x10^3/uL (0.3-0.8); MONOCYTES % (AUTO) 10.5 % (0.0-13.0); NEUTROPHILS # (AUTO) 3.7 x10^3/uL (2.2-4.8); NEUTROPHILS % (AUTO) 65.8 % (42.0-75.0); PLATELET COUNT 199 X10^3/uL (150.0-450.0); RED BLOOD COUNT 3.35 X10^6/uL (3.5-5.4); RED CELL DISTRIBUTION WIDTH 15.2 % (11.6-16.5)
[2018-08-15 02:21] LABS: WHITE BLOOD COUNT 6.2 X10^3/uL (3.6-10.0)
[2018-08-15 02:22] LABS: PLATELET MORPHOLOGY COMMENT NORMAL (NORMAL)
[2018-08-15 02:23] LABS: CREATINE KINASE 49 Units/L (26-192); CREATINE KINASE MB < 1.0 ng/mL (0-4.0); TROPONIN I < 0.02 ng/mL (0-1.5)
[2018-08-15 03:23] VITALS: BMI 24.7
[2018-08-15] MEDS ORDERED: NEURONTIN TAB 600 MG PO SCH (06:00)
[2018-08-15] MEDS ORDERED: LIPASE PROTEASE AMYLASE PO SCH ×2 (06:30)
[2018-08-15 07:11] LABS: BASOPHILS % (AUTO) 0.8 % (0.2-1.0); EOSINOPHILS # (AUTO) 0.1 x10^3/uL (0.0-0.2); EOSINOPHILS % (AUTO) 0.9 % (0.9-2.9); HEMATOCRIT 29.5 % (36.0-47.0); LYMPHOCYTES # (AUTO) 0.8 X10^3/uL (1.3-2.9); LYMPHOCYTES % (AUTO) 14.2 % (21.0-51.0); MEAN CORPUSCULAR HEMOGLOBIN 28.6 pg (27.0-34.0); MEAN CORPUSCULAR HGB CONC 33.7 g/dL (33.0-35.0); MEAN CORPUSCULAR VOLUME 84.8 fL (80.0-100.0); MEAN PLATELET VOLUME 7.9 fL (7.4-11.0); MONOCYTES # (AUTO) 0.5 x10^3/uL (0.3-0.8); MONOCYTES % (AUTO) 8.7 % (0.0-13.0); NEUTROPHILS # (AUTO) 4.4 x10^3/uL (2.2-4.8); NEUTROPHILS % (AUTO) 75.4 % (42.0-75.0); PLATELET COUNT 223 X10^3/uL (150.0-450.0); RED BLOOD COUNT 3.48 X10^6/uL (3.5-5.4); RED CELL DISTRIBUTION WIDTH 15.4 % (11.6-16.5); WHITE BLOOD COUNT 5.8 X10^3/uL (3.6-10.0)
[2018-08-15 07:25] LABS: ALANINE AMINOTRANSFERASE 29 Units/L (12-78); ALBUMIN 2.6 g/dL (3.4-5.0); ALKALINE PHOSPHATASE 181 Units/L (46-116); ASPARTATE AMINO TRANSFERASE 30 Units/L (15-37); BLOOD UREA NITROGEN 14 mg/dL (7-18); CALCIUM 7.7 mg/dL (8.5-10.1); CHLORIDE 95 mmol/L (98-107); COR CA(FOR HYPOALB) 8.8 mg/dL (8.5-10.1); COR NA(FOR HYPERGLY) 141 mmol/L (136-145); SODIUM 131 mmol/L (136-145); TOTAL PROTEIN 6.5 g/dL (6.4-8.2); eGFR NON BLACK RACES 53 (>60)
[2018-08-15 07:27] LABS: LACTIC ACID 0.7 mmol/L (0.4-2.0)
[2018-08-15] MEDS ORDERED: IMURAN PO SCH (09:00)
[2018-08-15] MEDS ORDERED: PROTONIX TAB 40 MG PO SCH (09:00)
[2018-08-15] MEDS ORDERED: LIOTHYRONINE SODIUM 5 MCG PO SCH (09:00)
[2018-08-15] MEDS ORDERED: PATIENT'S HOME MEDICATION (Lubiprostone [Amitiza] 24 MCG) PO SCH ×2 (09:00)
[2018-08-15] MEDS ORDERED: VITAMIN B-12 INJ IM SCH (09:00)
[2018-08-15] MEDS ORDERED: GEODON PO SCH (09:00)
[2018-08-15] MEDS ORDERED: SYNTHROID 100 mcg TAB PO SCH (09:00)
[2018-08-15] MEDS ORDERED: ATARAX TAB 25 MG PO SCH (09:00)
[2018-08-15] MEDS ORDERED: FLORINEF PO SCH ×3 (09:00→14:00)
[2018-08-15] MEDS ORDERED: LUBIPROSTONE 24 MCG PO SCH (09:00)
[2018-08-15] MEDS ORDERED: PAROXETINE HCL 40 MG PO SCH ×2 (09:00)
[2018-08-15] MEDS: ATARAX TAB 25 MG PO SCH ×2 (09:01→21:52)
[2018-08-15] MEDS: GEODON PO SCH (09:03)
[2018-08-15] MEDS: NEURONTIN TAB 600 MG PO SCH ×2 (09:03→21:53)
[2018-08-15] MEDS: PAXIL PO SCH ×2 (09:04→21:53)
[2018-08-15] MEDS: NS 1000 ML 1,000 ML IV SCH ×3 (09:04→18:21)
[2018-08-15] MEDS: LANTUS SC SCH ×2 (09:05→23:18)
[2018-08-15] MEDS: SYNTHROID 100 mcg TAB PO SCH (09:06)
[2018-08-15] MEDS: PROTONIX TAB 40 MG PO SCH ×2 (09:06→21:53)
[2018-08-15] MEDS: IMURAN PO SCH ×2 (09:07→10:19)
[2018-08-15] MEDS: LIOTHYRONINE SODIUM 5 MCG PO SCH (09:08)
[2018-08-15] MEDS ORDERED: LINZESS PO SCH (10:00)
--- NOTE | 2018-08-15 10:06 | RAD ---
History: Nausea and vomiting Study: Acute abdominal series Findings: The lungs are clear and the heart and mediastinum are unremarkable. There are cholecystectomy clips. The bowel gas pattern is within normal limits. There is no free air or abnormal bowel distention. There are no abnormal calcifications. Impression: No evidence for acute disease Reported By:
[2018-08-15] MEDS: VIBRAMYCIN PO SCH ×2 (10:14→21:54)
[2018-08-15] MEDS: HumuLIN R SUBCUT PRN (11:53)
[2018-08-15] MEDS: CREON PO SCH ×2 (11:55→17:01)
[2018-08-15] MEDS ORDERED: FLORINEF ONE (13:32)
[2018-08-15 15:19] LABS: STOOL FOR WBC POSITIVE (NEGATIVE)
[2018-08-15 15:20] LABS: CRYPTOSPORIDIUM PARVUM ANTIGEN NEGATIVE (NEGATIVE); GIARDIA LAMBLIA ANTIGEN NEGATIVE (NEGATIVE)
[2018-08-15] MEDS ORDERED: ZOFRAN INJ 4 MG VIAL ONE (16:14)
[2018-08-15] MEDS ORDERED: SNACK - Diabetic Appropriate PO SCH (20:00)
[2018-08-15] MEDS ORDERED: ELAVIL PO SCH ×2 (21:00)
[2018-08-15] MEDS ORDERED: LANTUS SC SCH ×2 (21:00)
[2018-08-16] MEDS: NS 1000 ML 1,000 ML IV SCH ×3 (03:20→17:38)
[2018-08-16 05:26] LABS: BASOPHILS % (AUTO) 0.8 % (0.2-1.0); EOSINOPHILS # (AUTO) 0.1 x10^3/uL (0.0-0.2); EOSINOPHILS % (AUTO) 2.1 % (0.9-2.9); HEMOGLOBIN 9.7 g/dL (12.0-16.0); LYMPHOCYTES # (AUTO) 1.1 X10^3/uL (1.3-2.9); LYMPHOCYTES % (AUTO) 26.8 % (21.0-51.0); MEAN CORPUSCULAR HEMOGLOBIN 28.3 pg (27.0-34.0); MEAN CORPUSCULAR HGB CONC 34.8 g/dL (33.0-35.0); MEAN CORPUSCULAR VOLUME 81.5 fL (80.0-100.0); MEAN PLATELET VOLUME 7.8 fL (7.4-11.0); MONOCYTES # (AUTO) 0.4 x10^3/uL (0.3-0.8); MONOCYTES % (AUTO) 11.2 % (0.0-13.0); NEUTROPHILS # (AUTO) 2.4 x10^3/uL (2.2-4.8); NEUTROPHILS % (AUTO) 59.1 % (42.0-75.0); PLATELET COUNT 198 X10^3/uL (150.0-450.0); RED BLOOD COUNT 3.44 X10^6/uL (3.5-5.4); RED CELL DISTRIBUTION WIDTH 15.4 % (11.6-16.5)
[2018-08-16 05:40] LABS: ALANINE AMINOTRANSFERASE 26 Units/L (12-78); ALBUMIN 2.4 g/dL (3.4-5.0); ALKALINE PHOSPHATASE 167 Units/L (46-116); ASPARTATE AMINO TRANSFERASE 21 Units/L (15-37); BLOOD UREA NITROGEN 8 mg/dL (7-18); CALCIUM 7.9 mg/dL (8.5-10.1); CARBON DIOXIDE 22.5 mmol/L (21-32); CHLORIDE 106 mmol/L (98-107); COR CA(FOR HYPOALB) 9.2 mg/dL (8.5-10.1); COR NA(FOR HYPERGLY) 140 mmol/L (136-145); CREATININE 0.99 mg/dL (0.55-1.02); SODIUM 139 mmol/L (136-145); TOTAL PROTEIN 6.2 g/dL (6.4-8.2); eGFR NON BLACK RACES > 60 (>60)
[2018-08-16] MEDS: CREON PO SCH ×3 (06:27→17:38)
[2018-08-16] MEDS: K-LYTE EFFERVESCENT PO ONE ×2 (06:27→06:49)
[2018-08-16] MEDS: ZOFRAN INJ 4 MG VIAL IVP PRN (06:50)
[2018-08-16] MEDS: ATARAX TAB 25 MG PO SCH (08:45)
[2018-08-16] MEDS: PAXIL PO SCH (08:45)
[2018-08-16] MEDS: SYNTHROID 100 mcg TAB PO SCH (08:45)
[2018-08-16] MEDS: PROTONIX TAB 40 MG PO SCH (08:46)
[2018-08-16] MEDS: NEURONTIN TAB 600 MG PO SCH (08:46)
[2018-08-16] MEDS: GEODON PO SCH (08:46)
[2018-08-16] MEDS: LIOTHYRONINE SODIUM 5 MCG PO SCH (08:47)
[2018-08-16] MEDS: VIBRAMYCIN PO SCH (08:48)
[2018-08-16] MEDS: IMURAN PO SCH (08:49)
[2018-08-16] MEDS ORDERED: LINZESS PO SCH (09:00)
[2018-08-16] MEDS ORDERED: FLORINEF PO SCH (09:00)
[2018-08-16] MEDS ORDERED: MAGNESIUM SULFATE 1 GRAM/100 mL PREMIX 2 G/200 ML BAG IV SCH (09:00)
[2018-08-16] MEDS ORDERED: COLACE CAP 100 MG PO STA (09:59)
[2018-08-16] MEDS ORDERED: K-DUR TAB 20 MEQ PO ONE (10:00)
[2018-08-16] MEDS ORDERED: COLACE CAP 100 MG PO ONE (10:36)
--- NOTE | 2018-08-16 11:31 | RAD ---
History: Nausea and vomiting Study: Acute abdominal series Comparison: Yesterday Findings: The lungs are clear and the heart and mediastinum are unremarkable. There are cholecystectomy clips. The bowel gas pattern is within normal limits. There is no free air. No bony abnormality is suggested. Impression: No evidence for acute disease Reported By:
[2018-08-16] MEDS: HumuLIN R SUBCUT PRN (13:31)
[2018-08-16 18:11] VITALS: BP 97/66
== END 2018-08-16 17:35 | disposition home or self-care (01) ==
LOC: ER 19:12 → ICU 19:12 → ER 08-15 00:40
PROVIDERS: ADMIT Obstetrics & Gynecology Obstetrics; ATTEND Obstetrics & Gynecology Obstetrics
DX: E03.8 Other specified hypothyroidism; K86.1 Other chronic pancreatitis; K59.09 Other constipation; I95.89 Other hypotension; E87.2 Acidosis; E10.65 Type 1 diabetes mellitus with hyperglycemia; E86.0 Dehydration; L89.622 Pressure ulcer of left heel, stage 2; R11.2 Nausea with vomiting, unspecified; B95.62 Methicillin resistant Staphylococcus aureus infection as the cause of diseases classified elsewhere; R79.82 Elevated C-reactive protein (CRP)
CPT/HCPCS: 36415; 36600; 71010; 71045; 71250; 74022; 80053; 80307; 81001; 82009; 82150; 82270; 82550; 82553; 82803; 83605; 83630; 83690; 83735; 84132; 84484; 85025; 86140; 87040; 87328; 87329; 87493; 96365; 96367; 96374; 96375; 99283; 99285; A4216; A4222; C9113; G0378; G0434; G6038; G6039; J1815; J2270; J2405; J3475; J3490; J7030; J7060; J7500; J8499

== ENCOUNTER 2018-08-27 07:29 | Inpatient (IN) ==
[2018-08-27] MEDS ORDERED: DILAUDID INJ IVP ONE (08:27)
[2018-08-27] MEDS ORDERED: PHENERGAN INJ 25 MG IVP ONE (08:27)
[2018-08-27] MEDS ORDERED: NS 1000 ML 1,000 ML ONE ×2 (08:28→10:02)
[2018-08-27] MEDS ORDERED: NS 1000 ML 1,000 ML IV ONE ×2 (08:28→10:37)
[2018-08-27] MEDS ORDERED: PHENERGAN INJ 25 MG ONE (08:28)
[2018-08-27] MEDS ORDERED: DILAUDID INJ ONE (08:29)
--- NOTE | 2018-08-27 08:35 | ED.ABDFE ---
HPI Time Seen Time Seen by Provider: 08/27/18 08:21 PCP Primary Care Physician: ANDREA HPI Comment HPI Comment: As noted in nurses notes. She denies fever of chills. She denies travel hx. recently or of consuming poorly prepared food items. Complaint Chief Complaint:: PT C/O SEVERE ABD PAIN, NAUSEA, VOMITTING, AND DIARRHEA. PT STATES ALL OF HER SYMPTOMS STARTED A FEW HOURS AGO AND SHE HAS NOT BEEN ABLE TO GET ANY RELIEF Reviewed Nurses Notes Review: Yes Source History Provided: Patient Mode of arrival Mode of Arrival: Ambulatory Timing Onset of Chief Complaint: 08/27/18 PMH PMH Past Medical History: Yes Past Medical History: Anxiety, CHF, Diabetes, Migraines, GERD, Hypothyroidism and Liver Disease Past Surgical History: Yes Surgical History: Appendectomy, Cholecystectomy and Ortho Surgery Family History History of Family Medical Conditions: Yes Family Medical History: Diabetes Mellitus, Coronary Artery Disease and Heart Failure Social History Does any household member use tobacco: No Alcohol Use: None Do you use any recreational Drugs:: No Lives With: Family Lives Where: Home infectious screening In the last 2 months have you had wt loss of >10#?: NO Have you had fever, night sweats or hemotysis?: No Have you traveled outside the country in the last 6 months?: No Isolation: Standard ROS Review of Systems Constitutional: No Symptoms Reported Eyes: No Symptoms Reported ENTM: No Symptoms Reported Respiratoy: No Symptoms Reported Cardiovascular: No Symptoms Reported Gastrointestinal/Abdominal: Abdominal Pain (sharp, upper abdomen.), Diarrhea, Nausea and Vomiting Genitourinary: No Symptoms Reported Neurological: No Symptoms Reported Musculoskeletal: Gout Integumentary: No Symptoms Reported Hematologic/Lymphatic: No Symptoms Reported Endocrine: No Symptoms Reported Psychiatric: No Symptoms Reported All Other Systems: Reviewed and Negative PE Vital Signs Vitals: Temperature 98.4 F Pulse Rate 112 Respiratory Rate 20 Blood Pressure [Left Arm] 96/52 Blood Pressure [Right Arm] 114/72 Blood Pressure 96/52 O2 Sat by Pulse Oximetry 100 General Limitations: No Limitations General Appearance: Alert and In No Apparent Distress Head Head Exam: Normal Inspection and Atraumatic Eyes Eye exam: Normal Appearance, PERRL and EOMI ENT ENT Exam: Normal Exam, Normal Oropharynx and Mucous Membranes Dry Neck Neck Exam: Normal Inspection Chest Chest Inspection: Normal Inspection and Symmetric Chest Wall Rise Respiratory Respiratory Exam: Normal Lung Sounds Bilat Cardiovascular Cardiovascular Exam: Normal Rhythm, Tachycardia, +S1 and +S2 Abdominal Exam Abdominal Exam: Normal Inspection, Soft and Tenderness Abdominal Tenderness: Epigastrium Rectal Rectal Exam: Deferred Back Back Exam: Normal Inspection Extremeties Extremities Exam: Normal Inspection and Full ROM Neurologic Neurological Exam: Alert and Oriented X3 Psychiatric Psychiatric Exam: Normal Affect and Normal Mood Skin Skin Exam: Warm ROR Labs Reviewed Result Diagrams: 08/27/18 08:28 08/27/18 08:28 Laboratory: WBC 9.5 X10^3/uL (3.6-10.0) 08/27/18 08:28 RBC 3.74 X10^6/uL (3.5-5.4) 08/27/18 08:28 Hgb 10.8 g/dL (12.0-16.0) L 08/27/18 08:28 Hct 30.7 % (36.0-47.0) L 08/27/18 08:28 MCV 82.1 fL (80.0-100.0) 08/27/18 08:28 MCH 28.8 pg (27.0-34.0) 08/27/18 08:28 MCHC 35.1 g/dL (33.0-35.0) H 08/27/18 08:28 RDW 15.6 % (11.6-16.5) 08/27/18 08:28 Plt Count 362 X10^3/uL (150.0-450.0) 08/27/18 08:28 MPV 7.5 fL (7.4-11.0) 08/27/18 08:28 Neut % (Auto) 77.8 % (42.0-75.0) H 08/27/18 08:28 Lymph % (Auto) 12.1 % (21.0-51.0) L 08/27/18 08:28 [place] % (Auto) 8.5 % (0.0-13.0) 08/27/18 08:28 Eos % (Auto) 0.8 % (0.9-2.9) L 08/27/18 08:28 Baso % (Auto) 0.8 % (0.2-1.0) 08/27/18 08:28 Neut # (Auto) 7.4 x10^3/uL (2.2-4.8) H 08/27/18 08:28 Lymph # (Auto) 1.2 X10^3/uL (1.3-2.9) L 08/27/18 08:28 [place] # (Auto) 0.8 x10^3/uL (0.3-0.8) 08/27/18 08:28 Eos # (Auto) 0.1 x10^3/uL (0.0-0.2) 08/27/18 08:28 Baso # (Auto) 0.1 X10^3/uL (0.0-0.1) 08/27/18 08:28 Absolute Nucleated RBC 0.0 /100WBC 08/27/18 08:28 Sodium 138 mmol/L (136-145) 08/27/18 08:28 Corrected Sodium TNP 08/27/18 08:28 Potassium 3.7 mmol/L (3.5-5.1) 08/27/18 08:28 Chloride 102 mmol/L (98-107) 08/27/18 08:28 Carbon Dioxide 19.7 mmol/L (21-32) L 08/27/18 08:28 BUN 22 mg/dL (7-18) H 08/27/18 08:28 Creatinine 1.26 mg/dL (0.55-1.02) H 08/27/18 08:28 Est GFR (MDRD) Af Amer > 60 (>60) 08/27/18 08:28 Est GFR (MDRD) Non-Af 55 (>60) L 08/27/18 08:28 Glucose 88 mg/dL (65-99) 08/27/18 08:28 Calcium 8.5 mg/dL (8.5-10.1) 08/27/18 08:28 Corrected Calcium 9.1 mg/dL (8.5-10.1) 08/27/18 08:28 Total Bilirubin 0.70 mg/dL (0.2-1.0) 08/27/18 08:28 AST 719 Units/L (15-37) H 08/27/18 08:28 ALT 117 Units/L (12-78) H 08/27/18 08:28 Alkaline Phosphatase 218 Units/L (46-116) H 08/27/18 08:28 Total Protein 7.0 g/dL (6.4-8.2) 08/27/18 08:28 Albumin 3.2 g/dL (3.4-5.0) L 08/27/18 08:28 Globulin 3.8 g/dL (2.5-4.5) 08/27/18 08:28 Albumin/Globulin Ratio 0.8 Ratio (1.1-2.1) L 08/27/18 08:28 Amylase 114 Units/L (25-115) 08/27/18 08:28 Lipase 2051 Units/L (73-393) H 08/27/18 08:28 Specimen Type Clean catch urine 08/27/18 08:09 Urine Color Yellow (YELLOW) 08/27/18 08:09 Urine Appearance Clear (CLEAR) 08/27/18 08:09 Urine pH 5.0 (5.0 - 8.0) 08/27/18 08:09 Ur Specific [place] 1.025 (1.000-1.030) 08/27/18 08:09 Urine Protein 3+ (NEGATIVE) 08/27/18 08:09 Urine Glucose (UA) Negative (NEGATIVE) 08/27/18 08:09 Urine Ketones 3+ (NEGATIVE) 08/27/18 08:09 Urine Occult Blood 3+ (NEGATIVE) 08/27/18 08:09 Urine Nitrite Negative (NEGATIVE) 08/27/18 08:09 Urine Bilirubin 1+ (NEGATIVE) 08/27/18 08:09 Urine Urobilinogen Normal (NORMAL) 08/27/18 08:09 Ur Leukocyte Esterase 1+ (NEGATIVE) 08/27/18 08:09 Urine RBC 0-2 /HPF (NONE SEEN) 08/27/18 08:09 Urine WBC 3-5 /HPF (NONE SEEN) 08/27/18 08:09 Ur Squamous Epith Cells Rare /HPF (NEGATIVE) 08/27/18 08:09 Amorphous Sediment Trace /HPF (NEGATIVE) 08/27/18 08:09 Urine Bacteria Negative /HPF (NEGATIVE) 08/27/18 08:09 Hyaline Casts Few /LPF (NEGATIVE) 08/27/18 08:09 Urine Mucus Moderate /HPF (NEGATIVE) 08/27/18 08:09 Ur Culture Indicated? No/not indicated 08/27/18 08:09 Acetone, Semi-Quant Small (NEGATIVE) H 08/27/18 08:28 Diagnosis Discharge Problem: Acute pancreatitis, Acute dehydration
[2018-08-27 08:44] LABS: SERUM ACETONE SMALL (NEGATIVE)
[2018-08-27 08:45] LABS: BASOPHILS # (AUTO) 0.1 X10^3/uL (0.0-0.1); BASOPHILS % (AUTO) 0.8 % (0.2-1.0); EOSINOPHILS # (AUTO) 0.1 x10^3/uL (0.0-0.2); EOSINOPHILS % (AUTO) 0.8 % (0.9-2.9); HEMATOCRIT 30.7 % (36.0-47.0); HEMOGLOBIN 10.8 g/dL (12.0-16.0); LYMPHOCYTES # (AUTO) 1.2 X10^3/uL (1.3-2.9); LYMPHOCYTES % (AUTO) 12.1 % (21.0-51.0); MEAN CORPUSCULAR HEMOGLOBIN 28.8 pg (27.0-34.0); MEAN CORPUSCULAR HGB CONC 35.1 g/dL (33.0-35.0); MEAN CORPUSCULAR VOLUME 82.1 fL (80.0-100.0); MEAN PLATELET VOLUME 7.5 fL (7.4-11.0); MONOCYTES # (AUTO) 0.8 x10^3/uL (0.3-0.8); MONOCYTES % (AUTO) 8.5 % (0.0-13.0); NEUTROPHILS # (AUTO) 7.4 x10^3/uL (2.2-4.8); NEUTROPHILS % (AUTO) 77.8 % (42.0-75.0); PLATELET COUNT 362 X10^3/uL (150.0-450.0); RED BLOOD COUNT 3.74 X10^6/uL (3.5-5.4); RED CELL DISTRIBUTION WIDTH 15.6 % (11.6-16.5); WHITE BLOOD COUNT 9.5 X10^3/uL (3.6-10.0)
[2018-08-27 08:48] LABS: BILIRUBIN,URINE 1+ (NEGATIVE); BLOOD/HEMOGLOBIN,URINE 3+ (NEGATIVE); GLUCOSE, URINE NEGATIVE (NEGATIVE); KETONES,URINE 3+ (NEGATIVE); LEUKOCYTE ESTERASE ,URINE 1+ (NEGATIVE); NITRITES,URINE NEGATIVE (NEGATIVE); PROTEIN,URINE 3+ (NEGATIVE); UROBILINOGEN,URINE NORMAL (NORMAL)
[2018-08-27 08:53] LABS: APPEARANCE,URINE CLEAR (CLEAR); COLOR,URINE YELLOW (YELLOW)
[2018-08-27 08:54] LABS: ALANINE AMINOTRANSFERASE 117 Units/L (12-78); ALBUMIN 3.2 g/dL (3.4-5.0); ALKALINE PHOSPHATASE 218 Units/L (46-116); AMYLASE 114 Units/L (25-115); ASPARTATE AMINO TRANSFERASE 719 Units/L (15-37); BLOOD UREA NITROGEN 22 mg/dL (7-18); CALCIUM 8.5 mg/dL (8.5-10.1); CARBON DIOXIDE 19.7 mmol/L (21-32); CHLORIDE 102 mmol/L (98-107); COR CA(FOR HYPOALB) 9.1 mg/dL (8.5-10.1); CREATININE 1.26 mg/dL (0.55-1.02); SODIUM 138 mmol/L (136-145); eGFR NON BLACK RACES 55 (>60)
[2018-08-27 08:56] LABS: LIPASE 2051 Units/L (73-393)
[2018-08-27 09:04] LABS: RBC,URINE 0-2 /HPF (NONE SEEN); SQUAMOUS EPITHELIAL CELL,UR RARE /HPF (NEGATIVE)
[2018-08-27 09:05] LABS: AMORPHOUS SEDIMENT,UR TRACE /HPF (NEGATIVE); BACTERIA,URINE NEGATIVE /HPF (NEGATIVE); HYALINE CASTS, URINE FEW /LPF (NEGATIVE); MUCUS,URINE MODERATE /HPF (NEGATIVE)
[2018-08-27] MEDS: NS 1000 ML 1,000 ML IV SCH ×2 (10:06→20:32)
[2018-08-27] MEDS ORDERED: NS 100 ML IV 100 ML IV ONE (11:34)
[2018-08-27] MEDS: BENADRYL CAP/TAB 25 MG PO PRN (12:12)
[2018-08-27] MEDS: DILAUDID INJ IVP PRN ×3 (12:13→20:20)
[2018-08-27] MEDS: PHENERGAN INJ 25 MG IV PRN ×3 (12:13→20:19)
--- NOTE | 2018-08-27 12:39 | CT ---
HISTORY: Abdominal pain Study: CT abdomen and pelvis with contrast Comparison: 05/14/2018 Technique: Multiple axial images of the abdomen and pelvis were obtained with IV contrast. Oral contrast was ad ministered. Dose reduction techniques including Automated Exposure Control (AEC) and adjustment of mA and kV were utilized. Findings: The visualized portions of the lung bases are clear. The spleen, liver and adrenal glands are unrema rkable. The gallbladder is removed. No renal calculi or obstructive uropathy identified. There is par tially stranding and fluid surrounding the head, body and tail of the pancreas suggesting acute scatt ered coarse calcifications within the parenchyma suggesting sequela of chronic pancreatitis. No pseud ocyst formation or evidence pancreatic necrosis. No venous thrombosis identified. No free intraperitoneal air. No evidence of intestinal obstruction or inflammation. Oral contrast rubi ches the distal small bowel. Appendix not visualized. No ascites is seen. The soft tissues and osseous structures are unremarkable. The vascular structures are within normal l imits for age. No pathologically enlarged lymph nodes are identified. Urinary bladder is unremarkable . IMPRESSION: 1. Inflammatory stranding and fluid around the head, body and tail of the pancreas compatible with ac [place] pancreatitis. These findings are seen with background changes of chronic pancreatitis. No pseudoc yst, venous thrombosis or pancreatic necrosis identified. 2. Prior cholecystectomy. Reported By:
[2018-08-27] MEDS ORDERED: DILAUDID INJ IVP PRN (14:24)
[2018-08-27] MEDS ORDERED: ZOFRAN TAB 4 MG PO PRN (14:24)
[2018-08-27] MEDS ORDERED: LIPASE PROTEASE AMYLASE PO SCH (14:24)
[2018-08-27] MEDS: NEURONTIN TAB 600 MG PO SCH ×3 (14:48→20:18)
[2018-08-27] MEDS: VIBRAMYCIN PO SCH ×2 (14:49→20:18)
[2018-08-27 15:35] VITALS: BMI 24.2
[2018-08-27] MEDS: CREON PO SCH (17:15)
[2018-08-27] MEDS: PROTONIX TAB 40 MG PO SCH (20:17)
[2018-08-27] MEDS: PAXIL PO SCH (20:17)
[2018-08-27] MEDS: ELAVIL PO SCH (20:17)
[2018-08-27] MEDS: ATARAX TAB 25 MG PO SCH (20:17)
[2018-08-27] MEDS: LANTUS SC SCH (20:20)
[2018-08-27] MEDS: D5W 1000 ML IV 1,000 ML IV SCH (20:32)
[2018-08-27] MEDS ORDERED: PAROXETINE HCL 40 MG PO SCH (21:00)
[2018-08-28] MEDS: NS 1000 ML 1,000 ML IV SCH ×3 (01:47→18:04)
[2018-08-28] MEDS: PHENERGAN INJ 25 MG IV PRN ×2 (03:40→07:53)
[2018-08-28] MEDS: DILAUDID INJ IVP PRN ×2 (03:40→07:52)
[2018-08-28] MEDS: CREON PO SCH ×3 (05:41→16:07)
[2018-08-28 06:17] LABS: BASOPHILS % (AUTO) 1.4 % (0.2-1.0); EOSINOPHILS # (AUTO) 0.1 x10^3/uL (0.0-0.2); EOSINOPHILS % (AUTO) 3.2 % (0.9-2.9); HEMATOCRIT 29.8 % (36.0-47.0); HEMOGLOBIN 10.4 g/dL (12.0-16.0); LYMPHOCYTES # (AUTO) 0.8 X10^3/uL (1.3-2.9); LYMPHOCYTES % (AUTO) 36.2 % (21.0-51.0); MEAN CORPUSCULAR HEMOGLOBIN 28.9 pg (27.0-34.0); MEAN CORPUSCULAR HGB CONC 34.8 g/dL (33.0-35.0); MEAN CORPUSCULAR VOLUME 82.9 fL (80.0-100.0); MEAN PLATELET VOLUME 7.3 fL (7.4-11.0); MONOCYTES # (AUTO) 0.2 x10^3/uL (0.3-0.8); MONOCYTES % (AUTO) 10.5 % (0.0-13.0); NEUTROPHILS # (AUTO) 1.1 x10^3/uL (2.2-4.8); NEUTROPHILS % (AUTO) 48.7 % (42.0-75.0); PLATELET COUNT 231 X10^3/uL (150.0-450.0); RED BLOOD COUNT 3.59 X10^6/uL (3.5-5.4); WHITE BLOOD COUNT 2.3 X10^3/uL (3.6-10.0)
[2018-08-28 06:27] LABS: ALANINE AMINOTRANSFERASE 128 Units/L (12-78); ALKALINE PHOSPHATASE 242 Units/L (46-116); ASPARTATE AMINO TRANSFERASE 343 Units/L (15-37); BLOOD UREA NITROGEN 5 mg/dL (7-18); CALCIUM 8.2 mg/dL (8.5-10.1); CARBON DIOXIDE 21.9 mmol/L (21-32); CHLORIDE 107 mmol/L (98-107); CREATININE 0.74 mg/dL (0.55-1.02); LIPASE 449 Units/L (73-393); SODIUM 140 mmol/L (136-145); TOTAL PROTEIN 6.9 g/dL (6.4-8.2); eGFR NON BLACK RACES > 60 (>60)
[2018-08-28] MEDS ORDERED: POTASSIUM CHL 60 MEQ/NS 0.45% 500 ML IV PRN (06:47)
[2018-08-28] MEDS ORDERED: POTASSIUM CHLORIDE LIQ 20 MEQ UDC PO PRN (06:47)
[2018-08-28] MEDS ORDERED: MAGNESIUM SULFATE 1 GRAM/100 mL PREMIX 1 GM/100 ML BAG IV PRN (06:47)
[2018-08-28] MEDS ORDERED: POTASSIUM CHL 40 MEQ/NS 0.45% 500 ML IV PRN (06:47)
[2018-08-28] MEDS ORDERED: K-RIDER 10 MEQ/NS 100 ML 10 MEQ/100 ML BAG IV PRN (06:47)
[2018-08-28] MEDS ORDERED: K-LYTE EFFERVESCENT PO PRN (06:47)
[2018-08-28 07:24] LABS: PLATELET MORPHOLOGY COMMENT NORMAL (NORMAL)
[2018-08-28] MEDS: GEODON PO SCH (08:09)
[2018-08-28] MEDS: SYNTHROID 100 mcg TAB PO SCH (08:10)
[2018-08-28] MEDS: NEURONTIN TAB 600 MG PO SCH ×4 (08:10→21:46)
[2018-08-28] MEDS: PAXIL PO SCH ×2 (08:10→21:46)
[2018-08-28] MEDS: ATARAX TAB 25 MG PO SCH (08:10)
[2018-08-28] MEDS: PROTONIX TAB 40 MG PO SCH ×2 (08:10→21:45)
[2018-08-28] MEDS: FLORINEF PO SCH (08:11)
[2018-08-28] MEDS: VIBRAMYCIN PO SCH ×2 (08:11→21:45)
[2018-08-28] MEDS: LIOTHYRONINE SODIUM 5 MCG PO SCH (09:12)
[2018-08-28] MEDS: BENADRYL CAP/TAB 25 MG PO PRN (13:13)
[2018-08-28] MEDS: D5W 1000 ML IV 1,000 ML IV SCH ×2 (16:08→23:51)
[2018-08-28] MEDS: ELAVIL PO SCH (21:45)
[2018-08-28] MEDS: LANTUS SC SCH (23:50)
[2018-08-29] MEDS: CATAPRES TAB 0.1 MG PO ONE ×2 (00:18→03:00)
[2018-08-29] MEDS: NS 1000 ML 1,000 ML IV SCH (02:45)
[2018-08-29] MEDS: CREON PO SCH (05:47)
[2018-08-29 06:09] LABS: BASOPHILS % (AUTO) 1.1 % (0.2-1.0); EOSINOPHILS # (AUTO) 0.1 x10^3/uL (0.0-0.2); EOSINOPHILS % (AUTO) 1.8 % (0.9-2.9); HEMATOCRIT 28.9 % (36.0-47.0); HEMOGLOBIN 10.1 g/dL (12.0-16.0); LYMPHOCYTES # (AUTO) 1.2 X10^3/uL (1.3-2.9); LYMPHOCYTES % (AUTO) 36.4 % (21.0-51.0); MEAN CORPUSCULAR HEMOGLOBIN 28.8 pg (27.0-34.0); MEAN CORPUSCULAR HGB CONC 34.8 g/dL (33.0-35.0); MEAN CORPUSCULAR VOLUME 82.6 fL (80.0-100.0); MEAN PLATELET VOLUME 7.8 fL (7.4-11.0); MONOCYTES # (AUTO) 0.2 x10^3/uL (0.3-0.8); MONOCYTES % (AUTO) 7.5 % (0.0-13.0); NEUTROPHILS # (AUTO) 1.7 x10^3/uL (2.2-4.8); NEUTROPHILS % (AUTO) 53.2 % (42.0-75.0); PLATELET COUNT 231 X10^3/uL (150.0-450.0); RED CELL DISTRIBUTION WIDTH 16.6 % (11.6-16.5); WHITE BLOOD COUNT 3.2 X10^3/uL (3.6-10.0)
[2018-08-29 06:22] LABS: ALANINE AMINOTRANSFERASE 97 Units/L (12-78); ALBUMIN 2.8 g/dL (3.4-5.0); ALKALINE PHOSPHATASE 224 Units/L (46-116); ASPARTATE AMINO TRANSFERASE 131 Units/L (15-37); BLOOD UREA NITROGEN 5 mg/dL (7-18); CALCIUM 8.4 mg/dL (8.5-10.1); CARBON DIOXIDE 24.6 mmol/L (21-32); CHLORIDE 102 mmol/L (98-107); COR CA(FOR HYPOALB) 9.4 mg/dL (8.5-10.1); COR NA(FOR HYPERGLY) 144 mmol/L (136-145); CREATININE 0.84 mg/dL (0.55-1.02); LIPASE 243 Units/L (73-393); SODIUM 139 mmol/L (136-145); TOTAL PROTEIN 6.9 g/dL (6.4-8.2); eGFR NON BLACK RACES > 60 (>60)
[2018-08-29] MEDS: LIOTHYRONINE SODIUM 5 MCG PO SCH (08:19)
[2018-08-29] MEDS: GEODON PO SCH (08:35)
[2018-08-29] MEDS: SYNTHROID 100 mcg TAB PO SCH (08:35)
[2018-08-29] MEDS: PROTONIX TAB 40 MG PO SCH (08:36)
[2018-08-29] MEDS: PAXIL PO SCH (08:36)
[2018-08-29] MEDS: FLORINEF PO SCH (08:36)
[2018-08-29] MEDS: NEURONTIN TAB 600 MG PO SCH (08:36)
[2018-08-29] MEDS: VIBRAMYCIN PO SCH (08:37)
[2018-08-29 09:00] VITALS: BP 123/78
== END 2018-08-29 11:00 | disposition home or self-care (01) | DRG 439 ==
LOC: ER 07:29 → ICU 09:34
PROVIDERS: ADMIT Obstetrics & Gynecology Obstetrics; ATTEND Obstetrics & Gynecology Obstetrics
DX: E86.0 Dehydration; K85.80 Other acute pancreatitis without necrosis or infection; K21.9 Gastro-esophageal reflux disease without esophagitis; F42.8 Other obsessive-compulsive disorder; R19.7 Diarrhea, unspecified; E10.65 Type 1 diabetes mellitus with hyperglycemia; F41.8 Other specified anxiety disorders; R11.2 Nausea with vomiting, unspecified; F31.89 Other bipolar disorder; E03.8 Other specified hypothyroidism; R94.4 Abnormal results of kidney function studies; E10.21 Type 1 diabetes mellitus with diabetic nephropathy; R10.84 Generalized abdominal pain; R60.0 Localized edema; K59.09 Other constipation
CPT/HCPCS: 36415; 74177; 80053; 81001; 82009; 82150; 82947; 83690; 83735; 84132; 85025; 96365; 96367; 96374; 96375; 99283; 99284; A4222; J1170; J1815; J2550; J3475; J3480; J7030; J7050; J7060; J8499

== ENCOUNTER 2019-12-19 16:00 | Inpatient (IN) ==
[2019-12-19 16:18] VITALS: BMI 22.8
[2019-12-19] MEDS ORDERED: NS 1000 ML 1,000 ML IV ONE ×2 (16:50→18:31)
--- NOTE | 2019-12-19 16:57 | DR.HYPOGLY ---
HPI Time Seen Time Seen by Provider: 12/19/19 16:56 PCP Primary Care Physician: DR. CHRIS DENIS ([phone]) Complaint Chief Complaint Doctors Comments: ELEVATED BLOOD GLUCOSE. Chief Complaint:: STATES SUGAR HAS BEEN HIGH 4-5 DAYS AND CAN'T CONTROL WITH INSULIN PUMP. STATES SHE HAS ALTERNATED SITES AND TRIED TO DO OTHER THINGS WITH PUMP TO GET HER SUGAR DOWN AND HAS BEEN UNSUCCESSFUL. STATES HER PCP HAD HER CHECK FOR KETONES AND SHE HAD KETONES BUT HER PCP STATED THEY COULDN'T DO ANYTHING ABOUT IT UNTIL SHE CAME IN FOR AN APPOINTMENT. STATES HER BLOOD GLUCOSE RANGES FROM 400-600. STATES THE ONLY TIME SHE GETS IT DOWN IS WHEN SHE GIVES HERSELF SO MUCH INSULIN THAT SHE IS BOTTOMING OUT DURING THE NIGHT. 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 Past Surgical History: Yes Surgical History: Appendectomy, Cholecystectomy and Ortho Surgery Past Surgical History Comment: LEFT ANKLE/TOE SURGERY EYE PROCEDURE X2 SHOTS IN LEFT EYE NOSE SURGERY Family History History of Family Medical Conditions: Yes Family Medical History: Diabetes Mellitus Social History Does patient currently use any type of tobacco product: No Have you used tobacco products in the last 12 months: No Type of Tobacco Use: None Does any household member use tobacco: No Alcohol Use: None Do you use any recreational Drugs:: No Lives With: Dad and Mom Lives Where: Home infectious screening Have you traveled outside the country in the last 6 months?: No Isolation: Standard ROS Review of Systems Constitutional: No Symptoms Reported and See HPI Eyes: No Symptoms Reported and See HPI ENTM: No Symptoms Reported and See HPI Respiratoy: No Symptoms Reported and See HPI Cardiovascular: No Symptoms Reported and See HPI Gastrointestinal/Abdominal: No Symptoms Reported and See HPI Genitourinary: No Symptoms Reported and See HPI Neurological: No Symptoms Reported and See HPI Musculoskeletal: No Symptoms Reported and See HPI Integumentary: No Symptoms Reported and See HPI Hematologic/Lymphatic: No Symptoms Reported and See HPI Endocrine: No Symptoms Reported and See HPI Psychiatric: No Symptoms Reported and See HPI All Other Systems: Reviewed and Negative PE Vital Signs Vitals: Temperature 98.0 F Pulse Rate 109 Respiratory Rate 16 Blood Pressure [Left Arm] 102/64 Blood Pressure 99/59 O2 Sat by Pulse Oximetry 99 General Limitations: No Limitations Eyes Eye exam: Normal Appearance, PERRL, Scleral Icterus and Conjunctival Injection ENT ENT Exam: Normal Exam, Normal Oropharynx, Normal External Ear Exam and TM's Normal Bilaterally Nose Exam: Normal Nose Exam; negative Sinus Tenderness, Nasal Deviation and Septal Hematoma Mouth Exam: Normal Inspection Throat Exam: Normal Inspection; negative Tonsillar Erythema, Tonsillomegaly and Tonsillar Exudate Neck Neck Exam: Normal Inspection and Trachea Midline; negative Tenderness and Lymphadenopathy Chest Chest Inspection: Normal Inspection and Symmetric Chest Wall Rise; negative Tenderness Respiratory Respiratory Exam: Normal Lung Sounds Bilat; negative Accessory Muscle Use, Chest Wall Tenderness and Respiratory Distress Respiratory Exam: Bilateral: Rhonchi and Lower: Rhonchi Cardiovascular Cardiovascular Exam: Regular Rate, Normal Rhythm and Normal Heart Sounds; negative Systolic Murmur and Diastolic Murmur Abdominal Exam Abdominal Exam: Normal Inspection, Normal Bowel Sounds and Soft; negative Tenderness Back Back Exam: Normal Inspection Neurologic Neurological Exam: Alert, Oriented X3, CN II-XII Intact and Motor Sensory Deficit Patient Oriented To: Person, Place and Time Speech: Fluid Speech Cranial Nerve Exam: EOM Function (II, III, IV, ): Normal, Facial Sensation (V): Normal, Facial Palsy (VII): Normal, Gag reflex (XI): Normal, Spinal Accessory Function (XI): Normal and Tongue Deviation: Normal Motor Strength - LUE: 5/5 Motor Strength - RUE: 5/5 Motor Strength - RLE: 5/5 Upper Motor Neuron Exam: Babinski Sign: Right Positive Psychiatric Psychiatric Exam: Normal Affect and Normal Mood Skin Skin Exam: Dry COURSE Treatment Treatment: SEE ORDERS. NORMAL SALINE 1L IV BOLUS. R INSULIN 10 UNITS IV AND INSULIN DRIP 6 UNITS PER HR. Education/Counseling Education/Counseling: Patient Educated On: Diagnosis ROR Labs Reviewed Result Diagrams: 12/19/19 17:02 12/19/19 17:02 Laboratory: WBC 5.7 X10^3/uL (3.6-10.0) 12/19/19 17:02 RBC 3.85 X10^6/uL (3.5-5.4) 12/19/19 17:02 Hgb 11.3 g/dL (12.0-16.0) L 12/19/19 17:02 Hct 34.0 % (36.0-47.0) L 12/19/19 17:02 MCV 88.3 fL (80.0-100.0) 12/19/19 17:02 MCH 29.4 pg (27.0-34.0) 12/19/19 17:02 MCHC 33.3 g/dL (33.0-35.0) 12/19/19 17:02 RDW 12.5 % (11.6-16.5) 12/19/19 17:02 Plt Count 264 X10^3/uL (150.0-450.0) 12/19/19 17:02 MPV 8.3 fL (7.4-11.0) 12/19/19 17:02 Neut % (Auto) 65.7 % (42.0-75.0) 12/19/19 17:02 Lymph % (Auto) 25.1 % (21.0-51.0) 12/19/19 17:02 Toombs % (Auto) 7.2 % (0.0-13.0) 12/19/19 17:02 Eos % (Auto) 0.9 % (0.9-2.9) 12/19/19 17:02 Baso % (Auto) 1.1 % (0.2-1.0) H 12/19/19 17:02 Neut # (Auto) 3.7 x10^3/uL (2.2-4.8) 12/19/19 17:02 Lymph # (Auto) 1.4 X10^3/uL (1.3-2.9) 12/19/19 17:02 [place]ombs # (Auto) 0.4 x10^3/uL (0.3-0.8) 12/19/19 17:02 Eos # (Auto) 0.0 x10^3/uL (0.0-0.2) 12/19/19 17:02 Baso # (Auto) 0.1 X10^3/uL (0.0-0.1) 12/19/19 17:02 Absolute Nucleated RBC 0.1 /100WBC 12/19/19 17:02 Sodium 130 mmol/L (136-145) L 12/19/19 17:02 Corrected Sodium 144 mmol/L (136-145) 12/19/19 17:02 Potassium 5.5 mmol/L (3.5-5.1) H 12/19/19 17:02 Chloride 95 mmol/L (98-107) L 12/19/19 17:02 Carbon Dioxide 22.3 mmol/L (21-32) 12/19/19 17:02 BUN 30 mg/dL (7-18) H 12/19/19 17:02 Creatinine 1.12 mg/dL (0.55-1.02) H 12/19/19 17:02 Est GFR (MDRD) Af Amer > 60 (>60) 12/19/19 17:02 Est GFR (MDRD) Non-Af > 60 (>60) 12/19/19 17:02 Glucose 675 mg/dL (65-99) H* 12/19/19 17:02 POC Glucose (mg/dL) 579 mg/dL (65-99) H* 12/19/19 16:43 Hemoglobin A1c 6.7 % 12/19/19 17:02 Calcium 8.5 mg/dL (8.5-10.1) 12/19/19 17:02 Corrected Calcium TNP 12/19/19 17:02 Total Bilirubin 0.40 mg/dL (0.2-1.0) 12/19/19 17:02 AST 11 Units/L (15-37) L 12/19/19 17:02 ALT 21 Units/L (12-78) 12/19/19 17:02 Alkaline Phosphatase 68 Units/L (46-116) 12/19/19 17:02 Total Protein 8.0 g/dL (6.4-8.2) 12/19/19 17:02 Albumin 4.0 g/dL (3.4-5.0) 12/19/19 17:02 Globulin 4.0 g/dL (2.5-4.5) 12/19/19 17:02 Albumin/Globulin Ratio 1.0 Ratio (1.1-2.1) L 12/19/19 17:02 Specimen Type Clean catch urine 12/19/19 16:53 Urine Color Pale yellow (YELLOW) 12/19/19 16:53 Urine Appearance Clear (CLEAR) 12/19/19 16:53 Urine pH 6.0 (5.0 - 8.0) 12/19/19 16:53 Ur Specific [place] 1.010 (1.000-1.030) 12/19/19 16:53 Urine Protein 1+ (NEGATIVE) 12/19/19 16:53 Urine Glucose (UA) 4+ (NEGATIVE) 12/19/19 16:53 Urine Ketones 3+ (NEGATIVE) 12/19/19 16:53 Urine Occult Blood 1+ (NEGATIVE) 12/19/19 16:53 Urine Nitrite Negative (NEGATIVE) 12/19/19 16:53 Urine Bilirubin Negative (NEGATIVE) 12/19/19 16:53 Urine Urobilinogen Normal (NORMAL) 12/19/19 16:53 Ur Leukocyte Esterase Negative (NEGATIVE) 12/19/19 16:53 Urine RBC 3-5 /HPF (0-3) A 12/19/19 16:53 Urine WBC 0-2 /HPF (0-5) 12/19/19 16:53 Ur Squamous Epith Cells Moderate /HPF (NEGATIVE) 12/19/19 16:53 Urine Bacteria Trace /HPF (NEGATIVE) 12/19/19 16:53 Urine Yeast Rare /HPF (NEGATIVE) 12/19/19 16:53 Ur Culture Indicated? No/not indicated 12/19/19 16:53 Acetone, Semi-Quant Small (NEGATIVE) H 12/19/19 17:02 Opioid Opioid Risk Tool Age (Dimitry box if 16-45): Yes History of Preadolescent Sexual Abuse: No Total: 1 Total Score Risk Category: Low Risk Copyright: Cornelius BROWN predicting aberrant behaviors
[2019-12-19] MEDS ORDERED: NS 1000 ML 1,000 ML ONE ×3 (17:02→20:20)
[2019-12-19 17:11] LABS: BILIRUBIN,URINE NEGATIVE (NEGATIVE); BLOOD/HEMOGLOBIN,URINE 1+ (NEGATIVE); GLUCOSE, URINE 4+ (NEGATIVE); KETONES,URINE 3+ (NEGATIVE); LEUKOCYTE ESTERASE ,URINE NEGATIVE (NEGATIVE); NITRITES,URINE NEGATIVE (NEGATIVE); PROTEIN,URINE 1+ (NEGATIVE); UROBILINOGEN,URINE NORMAL (NORMAL)
[2019-12-19 17:16] LABS: BASOPHILS # (AUTO) 0.1 X10^3/uL (0.0-0.1); BASOPHILS % (AUTO) 1.1 % (0.2-1.0); EOSINOPHILS % (AUTO) 0.9 % (0.9-2.9); HEMOGLOBIN 11.3 g/dL (12.0-16.0); LYMPHOCYTES # (AUTO) 1.4 X10^3/uL (1.3-2.9); LYMPHOCYTES % (AUTO) 25.1 % (21.0-51.0); MEAN CORPUSCULAR HEMOGLOBIN 29.4 pg (27.0-34.0); MEAN CORPUSCULAR HGB CONC 33.3 g/dL (33.0-35.0); MEAN CORPUSCULAR VOLUME 88.3 fL (80.0-100.0); MEAN PLATELET VOLUME 8.3 fL (7.4-11.0); MONOCYTES # (AUTO) 0.4 x10^3/uL (0.3-0.8); MONOCYTES % (AUTO) 7.2 % (0.0-13.0); NEUTROPHILS # (AUTO) 3.7 x10^3/uL (2.2-4.8); NEUTROPHILS % (AUTO) 65.7 % (42.0-75.0); PLATELET COUNT 264 X10^3/uL (150.0-450.0); RED BLOOD COUNT 3.85 X10^6/uL (3.5-5.4); RED CELL DISTRIBUTION WIDTH 12.5 % (11.6-16.5); WHITE BLOOD COUNT 5.7 X10^3/uL (3.6-10.0)
[2019-12-19 17:32] LABS: ALANINE AMINOTRANSFERASE 21 Units/L (12-78); ALKALINE PHOSPHATASE 68 Units/L (46-116); ASPARTATE AMINO TRANSFERASE 11 Units/L (15-37); BLOOD UREA NITROGEN 30 mg/dL (7-18); CALCIUM 8.5 mg/dL (8.5-10.1); CARBON DIOXIDE 22.3 mmol/L (21-32); CHLORIDE 95 mmol/L (98-107); CREATININE 1.12 mg/dL (0.55-1.02); SODIUM 130 mmol/L (136-145); eGFR NON BLACK RACES > 60 (>60)
[2019-12-19 17:37] LABS: COR NA(FOR HYPERGLY) 144 mmol/L (136-145)
[2019-12-19 17:52] LABS: APPEARANCE,URINE CLEAR (CLEAR); COLOR,URINE PALE YELLOW (YELLOW)
[2019-12-19 17:53] LABS: BACTERIA,URINE TRACE /HPF (NEGATIVE); SQUAMOUS EPITHELIAL CELL,UR MODERATE /HPF (NEGATIVE); YEAST,URINE RARE /HPF (NEGATIVE)
[2019-12-19 17:54] LABS: SERUM ACETONE SMALL (NEGATIVE)
[2019-12-19] MEDS ORDERED: NS 100 ML IV 0 ML IV ONE (17:58)
[2019-12-19] MEDS ORDERED: MYXREDLIN 100 UNIT/100 ML BAG 100 UNIT/100 ML PLAST..BAG IV ONE (18:00)
[2019-12-19] MEDS ORDERED: HumuLIN R ONE (18:00)
[2019-12-19] MEDS ORDERED: MYXREDLIN 100 UNIT/100 ML BAG 100 UNIT/100 ML PLAST..BAG IV PRN (18:09)
[2019-12-19] MEDS ORDERED: HumuLIN R IV ONE (18:14)
[2019-12-19] MEDS: NS 1000 ML 1,000 ML IV SCH (20:22)
[2019-12-19 20:37] LABS: ABG BASE EXCESS -2.3 mmol/L (-2.0-2.0); ABG HCO3 21.2 mmol/L (22-26)
[2019-12-19 20:39] LABS: ABG ALLEN TEST POS
--- NOTE | 2019-12-19 20:52 | RAD ---
CHEST, PA/LAT ADULTHISTORY: SOBStudy: PA and lateral views of the chest.Comparison:NoneFindings:The cardiomediastinal silhouette is normal.No focal consolidations, pleural effusions or pneumothorax. Osseous structures demonstrate no acute abnormality.IMPRESSION:1. No acute cardiopulmonary process.Electronically signed by: JOSELO PIERCE (Dec 19, 2019 20:51:14)
[2019-12-19 21:32] LABS: BLOOD UREA NITROGEN 24 mg/dL (7-18); CALCIUM 8.3 mg/dL (8.5-10.1); CARBON DIOXIDE 21.3 mmol/L (21-32); CHLORIDE 103 mmol/L (98-107); COR NA(FOR HYPERGLY) 139 mmol/L (136-145); CREATININE 0.88 mg/dL (0.55-1.02); SODIUM 135 mmol/L (136-145); eGFR NON BLACK RACES > 60 (>60)
[2019-12-20] MEDS: ULTRAM PO PRN ×2 (00:01→08:53)
[2019-12-20 00:47] LABS: BLOOD UREA NITROGEN 20 mg/dL (7-18); CALCIUM 8.1 mg/dL (8.5-10.1); CARBON DIOXIDE 21.7 mmol/L (21-32); CHLORIDE 105 mmol/L (98-107); COR NA(FOR HYPERGLY) 140 mmol/L (136-145); CREATININE 0.79 mg/dL (0.55-1.02); SODIUM 138 mmol/L (136-145); eGFR NON BLACK RACES > 60 (>60)
[2019-12-20 04:24] LABS: BASOPHILS % (AUTO) 1.2 % (0.2-1.0); EOSINOPHILS # (AUTO) 0.1 x10^3/uL (0.0-0.2); HEMATOCRIT 27.4 % (36.0-47.0); HEMOGLOBIN 9.6 g/dL (12.0-16.0); LYMPHOCYTES # (AUTO) 1.7 X10^3/uL (1.3-2.9); LYMPHOCYTES % (AUTO) 44.4 % (21.0-51.0); MEAN CORPUSCULAR HEMOGLOBIN 29.6 pg (27.0-34.0); MEAN CORPUSCULAR HGB CONC 34.9 g/dL (33.0-35.0); MEAN CORPUSCULAR VOLUME 84.8 fL (80.0-100.0); MEAN PLATELET VOLUME 8.1 fL (7.4-11.0); MONOCYTES # (AUTO) 0.3 x10^3/uL (0.3-0.8); MONOCYTES % (AUTO) 7.7 % (0.0-13.0); NEUTROPHILS # (AUTO) 1.7 x10^3/uL (2.2-4.8); NEUTROPHILS % (AUTO) 44.7 % (42.0-75.0); PLATELET COUNT 190 X10^3/uL (150.0-450.0); RED BLOOD COUNT 3.23 X10^6/uL (3.5-5.4); RED CELL DISTRIBUTION WIDTH 12.5 % (11.6-16.5); WHITE BLOOD COUNT 3.9 X10^3/uL (3.6-10.0)
[2019-12-20 04:25] LABS: BLOOD UREA NITROGEN 16 mg/dL (7-18); CARBON DIOXIDE 22.5 mmol/L (21-32); CHLORIDE 106 mmol/L (98-107); COR NA(FOR HYPERGLY) 138 mmol/L (136-145); CREATININE 0.62 mg/dL (0.55-1.02); SODIUM 138 mmol/L (136-145); eGFR NON BLACK RACES > 60 (>60)
[2019-12-20] MEDS: NS 1000 ML 1,000 ML IV SCH ×2 (05:01→14:33)
[2019-12-20 09:30] LABS: BLOOD UREA NITROGEN 15 mg/dL (7-18); CARBON DIOXIDE 18.7 mmol/L (21-32); CHLORIDE 102 mmol/L (98-107); COR NA(FOR HYPERGLY) 141 mmol/L (136-145); CREATININE 0.77 mg/dL (0.55-1.02); SODIUM 133 mmol/L (136-145); eGFR NON BLACK RACES > 60 (>60)
[2019-12-20] MEDS ORDERED: MOTRIN TAB 800 MG PO PRN (12:04)
[2019-12-20] MEDS ORDERED: MARINOL PO PRN (12:04)
[2019-12-20] MEDS ORDERED: VOLTAREN 1 % GEL MULTI DOSE TUBE TOP PRN (12:04)
[2019-12-20] MEDS ORDERED: ROXICODONE TAB 5 MG PO PRN ×2 (12:04→17:36)
[2019-12-20] MEDS ORDERED: [UNRECOGNIZED DRUG - OTHER] INTRANASAL PRN (12:04)
[2019-12-20] MEDS ORDERED: PHENERGAN TAB 25 MG PO PRN ×2 (12:04→17:37)
[2019-12-20] MEDS ORDERED: IMITREX TAB PO PRN (12:04)
[2019-12-20] MEDS ORDERED: CLOBETASOL TP SCH (12:15)
[2019-12-20] MEDS ORDERED: IMURAN PO SCH (12:15)
[2019-12-20] MEDS ORDERED: LANTUS SC SCH (13:06)
[2019-12-20] MEDS: BACTROBAN TOPICAL OINT TOP SCH ×2 (14:20→21:30)
[2019-12-20] MEDS: PROTONIX TAB 40 MG PO SCH ×2 (14:33→21:15)
[2019-12-20] MEDS: SYNTHROID 100 mcg TAB PO SCH (14:34)
[2019-12-20] MEDS: ZOFRAN TAB 4 MG PO PRN ×2 (14:34→20:49)
[2019-12-20] MEDS: MORPHINE SULFATE INJ 2 MG INJ IVP PRN ×2 (14:40→20:50)
[2019-12-20] MEDS ORDERED: PATIENT'S HOME MEDICATION SC NR (15:00)
[2019-12-20] MEDS: HumuLIN R SUBCUT PRN (15:08)
[2019-12-20] MEDS: PATIENT'S HOME MEDICATION PO SCH (16:18)
[2019-12-20] MEDS: LIOTHYRONINE 5 MCG PO SCH (16:19)
[2019-12-20] MEDS: PATIENT'S HOME MEDICATION SUBCUT SCH ×7 (16:20→21:00)
[2019-12-20] MEDS ORDERED: ROXICODONE TAB 5 MG PO SCH (17:00)
[2019-12-20] MEDS ORDERED: SNACK - Diabetic Appropriate PO SCH (20:00)
--- NOTE | 2019-12-20 20:20 | DR.H&P ---
H&P - History & Physical for Day of: H&P Date: 12/19/19 - Chief Complaint Chief Complaint: HIGH BLOOD GLUCOSE LEVELS - History of Present Illness History of Present Illness: IS A 29 YEAR OLD WHITE FEMALE. SHE PRESENTED TO THE ER WITH REPORTS OF HIGH BLOOD SUGAR. SHE HAS A PUMP AND HAS TRIED ADJUSTING DOSES, HOWEVER, HER GLUCOSE LEVELS HAVE REMAINED HIGH. SHE REPORTS THAT SHE HAS HAD HIGH LEVELS OF KETONES. SHE REPORTS THAT HER GLUCOSE LEVELS HAVE RANGED FROM 400-600 g/dL. PAST MEDICAL HISTORY INCLUDES DIABETES AND LIVER DISEASE. SHE HAS HAD A RECENT LEFT ANKLE SURGERY AND HAS BEEN ON ANTIBIOTICS. ON ARRIVAL, VITALS WERE 98.0-109-16-99%-99/59. LABS WERE OBTAINED. ABNORMAL LAB VALUES INCLUDE THE FOLLOWING: HGB 11.3, HCT 34.0, SODIUM 130, POTASSIUM 5.5, CHLORIDE 95, BUN 30, CREATININE 1.12, GLUCOSE 675, AST 11, A1C 6.7, ACETONES SMALL. ABG WAS OBTAINED AND REVEALED: ABG 7.430, PC02 32.0, P02 105.0, HC03 21.2, 02 SATURATION 98.0, BASE EXCESS -2.3. BLOOD CULTURES ARE PENDING. A CHEST XRAY AND REVEALED: NO ACUTE CARDIOPULMONARY PROCESS. SHE WAS GIVEN 10 UNITS SC X 1 DOSE IN THE ER AND A NORMAL SALINE BOLUS. SHE WAS ADMITTED FOR DKA AND STARTED ON A HUMULIN R DRIP PER PROTCOL AND NORMAL SALINE AT 125M/HR. BLOOD GLUCOSE LEVEL DROPPED TO 109 AND INSULIN DRIP WAS DISCONTINUED AT 0548. THIS MORNING, WE WILL RESTART HER INSULIN PUMP AND A HUMALOG SLIDING SCALE. OTHERWISE, WE WILL FOLLOW UP WITH AM LABS AND CONTINUE TO MONITOR. - Past Medical History Past Medical History: Diabetes, Liver Disease Additional Medical History: Hypotension, Auto Immune Pancreatitis, Bipolar Disorder, Deaf (L) Ear, Polycystic ovarian disease, Gall bladder disease, Pancreatitis, Crohn's disease, Constipation, Hormone disorder - Past Surgical History Surgical History: Appendectomy, Cholecystectomy, Ortho Surgery Additional Surgical History: Port-a-cath placement - Family History Family Medical History: Diabetes Mellitus, Coronary Artery Disease, Hypertension - Social History Does patient currently use any type of tobacco product: No Have you used tobacco products in the last 12 months: No Type of Tobacco Use: None Does any household member use tobacco: No Alcohol Use: None Drug Use: None - Medications Home Medications: acetaminophen [From Tylenol] Allergy (Verified 05/22/19 13:52) ketorolac [From Toradol] Allergy (Verified 09/30/19 01:15 EST) metoclopramide [From Reglan] Allergy (Verified 05/22/19 13:52) TAPE ADHESIVE Allergy (Uncoded 05/22/19 13:52) CONTINUE taking the following medications azathioprine 50 mg PO DAILY 12/19/19 [History] clobetasol 1 applic TOPICAL BID 12/19/19 [History] diclofenac sodium 2 g TOPICAL QID PRN 12/19/19 [History] dronabinol 5 mg PO PRN PRN 12/19/19 [History] erenumab-aooe [Aimovig Autoinjector] 70 mg SUBCUT MONTHLY 12/19/19 [History] fluticasone prp-sod.chl,bicarb 1 ea INTRANASAL PRN PRN 12/19/19 [History] ibuprofen 800 mg PO PRN PRN 12/19/19 [History] levothyroxine 100 mcg PO DAILY 12/19/19 [History] liothyronine 5 mcg PO DAILY 12/19/19 [History] mupirocin 1 applic TOPICAL PRN PRN 12/19/19 [History] ondansetron 4 mg PO TID PRN 12/19/19 [History] oxycodone 5 mg PO PRN PRN 12/19/19 [History] promethazine 25 mg PO PRN PRN 12/19/19 [History] sumatriptan succinate 100 mg PO DAILY PRN 12/19/19 [History] tramadol 50 mg PO PRN PRN 12/19/19 [History] - Review of Systems Constitutional: Weakness Eyes: No Symptoms Reported ENT: No Symptoms Reported Respiratory: No Symptoms Reported Cardiovascular: No Symptoms Reported Gastrointestinal: No Symptoms Reported, Nausea Genitourinary: No Symptoms Reported Musculoskeletal: Foot Pain (LEFT FOOT PAIN ) Skin: No Symptoms Reported Neurological: Weakness - Physical Exam Vital Signs: Temperature 97.8 F Pulse Rate [Apical] 101 Pulse Rate 109 Respiratory Rate 25 Blood Pressure [Left Arm] 101/73 Blood Pressure 99/59 O2 Sat by Pulse Oximetry 97 Oriented: Normal Eyes: Normal Ear: Normal Nose: Normal Throat: Normal Respiratory: Diminished Throughout Cardiovascular: Tachycardia : Normal Auscultation: Bowel Sounds: Normal Palpation: Normal Tenderness: Normal Skin: Normal Musculoskeletal: Left, Ankle, Foot, Tender Psychiatric: Normal Mood Description: Calm Affect: Normal Speech Pattern: Clear - Assessment/Plan (1) DKA (diabetic ketoacidoses) Qualifiers: Diabetes mellitus type: other specified (including ELVIS) Diabetes mellitus complication detail: without coma Qualified Code(s): E13.10 - Other specified diabetes mellitus with ketoacidosis without coma Status: Acute Plan: INSULIN PUMP, HUMALOG SLIDING SCALE, CONTINUE TO MONITOR - Allergies Allergies/Adverse Reactions: Allergies Allergy/AdvReac Type Severity Reaction Status Date / Time acetaminophen [From Tylenol] Allergy Verified 05/22/19 13:52 ketorolac [From Toradol] Allergy Verified 09/30/19 01:15 EST metoclopramide [From Reglan] Allergy Verified 05/22/19 13:52 TAPE ADHESIVE Allergy Uncoded 05/22/19 13:52
[2019-12-20] MEDS: SNACK - Diabetic Appropriate PO SCH (20:30)
[2019-12-21] MEDS: MORPHINE SULFATE INJ 2 MG INJ IVP PRN ×4 (03:24→21:35)
[2019-12-21] MEDS: PATIENT'S HOME MEDICATION SUBCUT SCH ×27 (03:35→23:00)
[2019-12-21 05:36] LABS: BASOPHILS % (AUTO) 1.1 % (0.2-1.0); EOSINOPHILS # (AUTO) 0.1 x10^3/uL (0.0-0.2); EOSINOPHILS % (AUTO) 2.1 % (0.9-2.9); HEMATOCRIT 27.4 % (36.0-47.0); HEMOGLOBIN 9.4 g/dL (12.0-16.0); LYMPHOCYTES # (AUTO) 1.1 X10^3/uL (1.3-2.9); LYMPHOCYTES % (AUTO) 29.3 % (21.0-51.0); MEAN CORPUSCULAR HEMOGLOBIN 30.2 pg (27.0-34.0); MEAN CORPUSCULAR HGB CONC 34.2 g/dL (33.0-35.0); MEAN CORPUSCULAR VOLUME 88.2 fL (80.0-100.0); MEAN PLATELET VOLUME 8.9 fL (7.4-11.0); MONOCYTES # (AUTO) 0.3 x10^3/uL (0.3-0.8); MONOCYTES % (AUTO) 7.7 % (0.0-13.0); NEUTROPHILS # (AUTO) 2.1 x10^3/uL (2.2-4.8); NEUTROPHILS % (AUTO) 59.8 % (42.0-75.0); PLATELET COUNT 159 X10^3/uL (150.0-450.0); RED CELL DISTRIBUTION WIDTH 12.4 % (11.6-16.5); WHITE BLOOD COUNT 3.6 X10^3/uL (3.6-10.0)
[2019-12-21] MEDS: HumuLIN R SUBCUT PRN ×6 (05:45→21:35)
[2019-12-21 06:03] LABS: ALANINE AMINOTRANSFERASE 18 Units/L (12-78); ALBUMIN 3.2 g/dL (3.4-5.0); ALKALINE PHOSPHATASE 64 Units/L (46-116); ASPARTATE AMINO TRANSFERASE 13 Units/L (15-37); BLOOD UREA NITROGEN 17 mg/dL (7-18); CALCIUM 8.1 mg/dL (8.5-10.1); CHLORIDE 102 mmol/L (98-107); COR CA(FOR HYPOALB) 8.7 mg/dL (8.5-10.1); COR NA(FOR HYPERGLY) 143 mmol/L (136-145); CREATININE 0.93 mg/dL (0.55-1.02); SODIUM 133 mmol/L (136-145); TOTAL PROTEIN 6.6 g/dL (6.4-8.2); eGFR NON BLACK RACES > 60 (>60)
[2019-12-21 06:16] LABS: CARBON DIOXIDE 14.2 mmol/L (21-32)
[2019-12-21] MEDS ORDERED: CREON PO SCH (07:00)
[2019-12-21] MEDS: NS 1000 ML 1,000 ML IV SCH ×4 (07:40→18:59)
[2019-12-21] MEDS: PROTONIX TAB 40 MG PO SCH ×2 (08:52→21:08)
[2019-12-21] MEDS: SYNTHROID 100 mcg TAB PO SCH (08:52)
[2019-12-21] MEDS: LIOTHYRONINE 5 MCG PO SCH (08:53)
[2019-12-21] MEDS: BACTROBAN TOPICAL OINT TOP SCH ×2 (08:53→21:08)
[2019-12-21] MEDS: PATIENT'S HOME MEDICATION PO SCH ×2 (08:54→21:09)
[2019-12-21] MEDS: SNACK - Diabetic Appropriate PO SCH (20:40)
[2019-12-22] MEDS: PATIENT'S HOME MEDICATION SUBCUT SCH ×14 (01:51→11:52)
[2019-12-22] MEDS: NS 1000 ML 1,000 ML IV SCH ×2 (03:08→05:48)
[2019-12-22] MEDS: MORPHINE SULFATE INJ 2 MG INJ IVP PRN ×2 (03:30→09:02)
[2019-12-22 05:31] LABS: ALANINE AMINOTRANSFERASE 19 Units/L (12-78); ALBUMIN 3.2 g/dL (3.4-5.0); ALKALINE PHOSPHATASE 64 Units/L (46-116); ASPARTATE AMINO TRANSFERASE 13 Units/L (15-37); BLOOD UREA NITROGEN 10 mg/dL (7-18); CALCIUM 7.9 mg/dL (8.5-10.1); CARBON DIOXIDE 22.9 mmol/L (21-32); CHLORIDE 102 mmol/L (98-107); COR CA(FOR HYPOALB) 8.5 mg/dL (8.5-10.1); COR NA(FOR HYPERGLY) 143 mmol/L (136-145); CREATININE 0.76 mg/dL (0.55-1.02); SODIUM 136 mmol/L (136-145); TOTAL PROTEIN 6.8 g/dL (6.4-8.2); eGFR NON BLACK RACES > 60 (>60)
[2019-12-22 05:38] LABS: BASOPHILS % (AUTO) 0.9 % (0.2-1.0); EOSINOPHILS # (AUTO) 0.1 x10^3/uL (0.0-0.2); EOSINOPHILS % (AUTO) 3.2 % (0.9-2.9); HEMATOCRIT 29.2 % (36.0-47.0); HEMOGLOBIN 10.1 g/dL (12.0-16.0); LYMPHOCYTES # (AUTO) 1.1 X10^3/uL (1.3-2.9); LYMPHOCYTES % (AUTO) 39.6 % (21.0-51.0); MEAN CORPUSCULAR HEMOGLOBIN 29.9 pg (27.0-34.0); MEAN CORPUSCULAR HGB CONC 34.6 g/dL (33.0-35.0); MEAN CORPUSCULAR VOLUME 86.2 fL (80.0-100.0); MONOCYTES # (AUTO) 0.2 x10^3/uL (0.3-0.8); MONOCYTES % (AUTO) 8.5 % (0.0-13.0); NEUTROPHILS # (AUTO) 1.3 x10^3/uL (2.2-4.8); NEUTROPHILS % (AUTO) 47.8 % (42.0-75.0); PLATELET COUNT 168 X10^3/uL (150.0-450.0); RED BLOOD COUNT 3.39 X10^6/uL (3.5-5.4); RED CELL DISTRIBUTION WIDTH 12.4 % (11.6-16.5); WHITE BLOOD COUNT 2.8 X10^3/uL (3.6-10.0)
[2019-12-22] MEDS: PATIENT'S HOME MEDICATION PO SCH ×2 (05:47→08:46)
[2019-12-22] MEDS: HumuLIN R SUBCUT PRN ×2 (05:48→08:39)
[2019-12-22] MEDS: PROTONIX TAB 40 MG PO SCH (08:45)
[2019-12-22] MEDS: SYNTHROID 100 mcg TAB PO SCH (08:45)
[2019-12-22] MEDS: BACTROBAN TOPICAL OINT TOP SCH (08:45)
[2019-12-22] MEDS: LIOTHYRONINE 5 MCG PO SCH (08:46)
[2019-12-22] MEDS: ZOFRAN TAB 4 MG PO PRN (09:00)
[2019-12-22 11:45] LABS: AMYLASE 24 Units/L (25-115); LIPASE 39 Units/L (73-393)
[2019-12-22 12:44] VITALS: BP 111/69
== END 2019-12-22 13:30 | disposition home or self-care (01) | DRG 639 ==
LOC: ER 16:06 → ICU 20:07
PROVIDERS: ADMIT Internal Medicine; ATTEND Internal Medicine
DX: R26.89 Other abnormalities of gait and mobility; Z87.19 Personal history of other diseases of the digestive system; I95.89 Other hypotension; E10.10 Type 1 diabetes mellitus with ketoacidosis without coma; Z79.4 Long term (current) use of insulin
CPT/HCPCS: 36415; 36600; 71020; 71046; 80048; 80053; 81001; 82009; 82150; 82803; 82947; 83036; 83690; 85025; 87040; 96365; 96367; 96374; 97161; 99285; A4222; J1815; J2270; J3490; J7030; S0119; S0181